=== PATIENT | female | born 1945 | race Caucasian/White ===

== ENCOUNTER 2024-03-18 09:38 | Outpatient (OUT) | payer MEDICARE, OTHER, SELFPAY ==
--- NOTE | 2024-03-18 | XR_ITS ---
The [address] [address] Patient Name: WALTER ROACH MRN: [id number] date: 1945 Sex: F Assigned Patient Location: [facility] Current Patient Location: Accession/Order Number: [id number] Exam Date: 03/18/2024 10:00 Report Date: 03/20/2024 05:14 At the request of: KAMILA QUESADA Procedure: XR lumbar spine 2-3V EXAMINATION: XR lumbar spine 2-3V HISTORY: Left lumbar radiculitis M54.16 COMPARISON: No relevant comparison available. FINDINGS: BONES: No fracture or spondylolisthesis. Multilevel moderate degenerative facet arthropathy. DISC SPACES: Marked narrowing on the left side of L1-L2 and right side of L3-L4. 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 OTHER: Negative. XR/XR lumbar spine 2-3V IMPRESSION: 1. 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 Electronically authenticated by: DANIEL DORANTES Date: 03/20/2024 05:14
== END 2024-03-18 09:39 | disposition home or self-care (01) ==
LOC: RAD 09:43
PROVIDERS: PCP Internal Medicine; Visit Provider Internal Medicine
DX: M54.16 Radiculopathy, lumbar region (principal); M51.36 Other intervertebral disc degeneration, lumbar region
CPT/HCPCS: 72100

== ENCOUNTER 2025-02-08 10:07 | Outpatient (OUT) | payer MEDICARE, OTHER, SELFPAY ==
--- OUTSIDE RECORDS SUMMARY | 2025-01-30 09:30 | XMS_ITS | Encounter Summary ---
Author Organization [facility] Address [address] [place] [address] Care Team Providers Care Stock Broker Supervisor Name Role Phone Jesús Tripathi MD Unavailable [phone] Jesús Tripathi MD Primary Care Provider [phone] Reason for Referral * Imaging (Routine) - Authorized Specialty Diagnoses / Procedures Referred By Contac t Referred To Contact Radiology Diagnoses Carotid bruit, unspecified laterality Procedures Vascular US carotid artery duplex bilateral Jesús Tripathi MD 112 [facility] 110 [place] [address] Phone: tel: fax: [facility] [address] [facility] [address] [place] [address] Phone: tel: fax: Referral ID Status Reason Start Date Expiration Date V isits Requested Visits Authorized [id number] Authorized 01/30/2025 07/29/2025 1 1 Reason for Visit * Reason Comments Medicare Annual Wellness Visit Subsequen t Encounter Details Date Type Department Care Team (Late st Contact Info) Description 01/30/2025 9:30 AM EDT [facility] [address] [facility] 110 [place] [address] Jesús Tripathi MD 112 [facility] 110 [place] [address] Routine general medical examination at health care facility (Primary Dx); ACP (advance care planning); Polyosteoarthritis, unspecified; Carotid bruit, unspecified laterality; Primary insomnia; Atrophic vaginitis; Generalized osteoarthritis; Osteoarthritis of spine with radiculopathy, lumbar region; Age-related osteoporosis without current pathological fracture ; Mixed hyperlipidemia Social History Tobacco Use Types Packs/Day Years Used Date Smoking Tobacco: Never Smokeless Tobacco: Never Tobacco Cessation:Counseling Given: Not Answered Alcohol Use Standard Drinks/Week Comments Yes 7 (1 standard drink = 0.6 oz pur e alcohol) B1300 Health Literacy Answer Date Recor ded How often do you need to hav e someone help you when you read instructions, pamphlets, or other written material from your doctor or pharmacy? Never 01/23/2025 Humiliation, Afraid, Rape, and Kick questionnair e Answer Date Recorded Within the last year, have y ou been afraid of your partner or ex-partner? No 01/23/2025 Within the last year, have y ou been humiliated or emotionally abused in other ways by your partner or ex-partner? No Within the last year, have y ou been kicked, hit, slapped, or otherwise physically hurt by your partner or ex-partner? No 01/23/2025 Within the last year, have y ou been raped or forced to have any kind of sexual activity by your partner or ex-partner? No 01/23/2025 Social Connection and Isolation Panel [NHANES] A nswer Date Recorded In a typical week, how many times do you talk on the phone with family, friends, or neighbors? Once a week 01/23/2025 How often do you get together with friends or re latives? Once a week 01/23/2025 How often do you attend uatsdin or druze serv ices? Never 01/23/2025 Do you belong to any clubs o r organizations such as uatsdin groups, unions, fraternal or athletic groups, or school groups? No 01/23/2025 How often do you attend meet ings of the clubs or organizations you belong to? Never 01/23/2025 Are you , , di vorced, , never , or living with a partner? 01/23/2025 AUDIT-C Answer Date Recorded Q1: How often do you have a drink containing alcohol? 4 or more times a week 01/23/2025 Q2: How many drinks containi ng alcohol do you have on a typical day when you are drinking? 1 or 2 Q3: How often do you have si x or more drinks on one occasion? Never 01/23/2025 Overall Financial Resource Strain (CARDIA) Answe r Date Recorded How hard is it for you to pa y for the very basics like food, housing, medical care, and heating? Not hard at all 01/23/2025 PHQ-2 Answer Date Recorded Patient Health Questionnaire-2 Score 0 01/23/2025 [facility] - Occupational Stress Questionnaire Answer Date Recorded Do you feel stress - tense, restless, nervous, or anxious, or unable to sleep at night because your mind is troubled all the time - these days? Only a little 01/23/2025 Exercise Vital Sign Answer Date Recorde d On average, how many days pe r week do you engage in moderate to strenuous exercise (like a brisk walk)? 3 days 01/23/2025 On average, how many minutes do you engage in exercise at this level? 20 min 01/23/2025 Hunger Vital Sign Answer Date Recorded Within the past 12 months, y ou worried that your food would run out before you got the money to buy more. Never true 01/24/20 25 Within the past 12 months, t he food you bought just didn't last and you didn't have money to get more. Never true 01/23/2025 PRAPARE - Transportation Answer Date Re corded In the past 12 months, has l ack of transportation kept you from medical appointments or from getting medications? No 01/04 In the past 12 months, has l ack of transportation kept you from meetings, work, or from getting things needed for daily living? No 01/23/2025 Housing Stability Vital Sign Answer Naldo e Recorded In the last 12 months, was t here a time when you were not able to pay the mortgage or rent on time? No 01/23/2025 In the past 12 months, how m any times have you moved where you were living? 0 01/23/2025 At any time in the past 12 m [facility], were you homeless or living in a alf (including now)? No 01/23/2025 Comments No Sex and Gender Information Value Date Recorded Sex Assigned at Female 05/20/2023 10:49 AM EST Legal Sex Female 6:38 PM EDT Gender Identity Female 05/20/2023 10:49 AM EST Sexual Orientation Not on file documented as of this encounter Last Filed Vital Signs Vital Sign Reading Time Taken Comments Blood Pressure 128/80 01/30/2025 9:26 AM EDT Pulse 89 01/30/2025 9:26 AM EDT Temperature - - Respiratory Rate - - Oxygen Saturation 96% 01/30/2025 9:26 AM EDT Inhaled Oxygen Concentration - - Weight - - Height 163.2 cm (5' 4.25 ) 01/30/2025 9:26 AM ED T Body Mass Index - - documented in this encounter Progress Notes * Jesús Tripathi MD - 01/30/2025 9:30 AM EDT Images from the original note were not included. Subjective : Chief Complaint: Alena Tapia is an 79 y.o. female here for an annual wellness visit. I have reviewed and reconciled the history and medication list with the patient today. Current Outpatient Medications Medication Sig Dispense Refill latanoprost (Xalatan) 0.005 % ophthalmic solution Administer 1 drop into both eyes at bedtime omeprazole (PriLOSEC) [address] capsule Take 1 capsule (40 mg) by mouth in the morning. Take before meals. Do not crush or chew.. 30 capsule 0 rosuvastatin (Crestor) 20 MG tablet Take 1 tablet (20 mg) by mouth in the morning. 90 tablet 3 zolpidem (Ambien) 10 MG tablet Take 1 tablet (10 mg) by mouth as needed at bedtime for sleep 30 tablet 3 No current facility-administered medications for this visit. Review of Systems Constitutional: Negative for chills, fatigue and fever. Respiratory: Negative for cough, shortness of breath and wheezing. Cardiovascular: Negative for chest pain, palpitations and leg swelling. Gastrointestinal: Negative for abdominal pain, constipation, diarrhea, nausea and vomiting. Skin: Negative for rash. List of current healthcare providers: Patient Care Team: Jesús Tripathi MD as PCP - General (Internal Medicine) Jesús Tripathi MD as PCP - [employer] Medicare Annual Visit Over the past 2 weeks, how often have you been bothered by any of the following problems? Little interest or pleasure in doing things: (Patient-Rptd) (P) Not at all Feeling down, depressed, or hopeless: (Patient-Rptd) (P) Not at all Patient Health Questionnaire-2 Score: (Patient-Rptd) (P) 0 Sal Fall Risk History of Falling, Immediate or Within 3 Months: (Patient-Rptd) (P) No Secondary Diagnosis: (Patient-Rptd) (P) No Ambulatory Aid: (Patient-Rptd) (P) Walks without aid/bedrest/nurse assist Intravenous Therapy/Heparin Lock: (Patient-Rptd) (P) No Gait/Transferring: (Patient-Rptd) (P) Normal/bedrest/immobile Mental Status: (Patient-Rptd) (P) Oriented to own ability Sal Fall Risk Score: (Patient-Rptd) (P) 0 Health Risk Assessment Form Do you need help eating, bathing, using the toilet, dressing, or getting around your home?: (Patient-Rptd) (P) No Can you prepare your own meals?: (Patient-Rptd) (P) Yes Can you do your own housework without help?: (Patient-Rptd) (P) Yes Can you shop for groceries or clothes without help?: (Patient-Rptd) (P) Yes Do you exercise for about 20 minutes 3 or more days a week?: (Patient-Rptd) (P) Yes How confident are you that you can control and manage most of your health problems?: (Patient-Rptd)(P) Very confident Can you mange your money, credit cards and accounts, pay bills and taxes?: (Patient-Rptd) (P) Yes Cognitive Screening Three Word Registration: Apple, Watch, Lizette Clock Drawing: Normal Clock - 2 Three Word Recall: All 3 words correct - 3 Total Score (0-5 Points): 5 Pain Assessment Pain Score: (Patient-Rptd) (P) 2 Advance Care Planning Do you have a living will?: (Patient-Rptd) (P) No Do you have a medical power of banking attorney?: (Patient-Rptd) (P) No Objective : BP 128/80 Pulse 89 Ht 5' 4.25 LMP (LMP Unknown) SpO2 96% BMI 25.55 kg/m?? No results found. Physical Exam Constitutional: Appearance: Normal appearance. HENT: Head: Normocephalic and atraumatic. Neck: Vascular: Carotid bruit present. Cardiovascular: Rate and Rhythm: Normal rate and regular rhythm. Heart sounds: Normal heart sounds. No murmur heard. Pulmonary: Effort: Pulmonary effort is normal. Breath sounds: Normal breath sounds. No wheezing, rhonchi or rales. Abdominal: General: Abdomen is flat. Bowel sounds are normal. There is no distension. Tenderness: There is no abdominal tenderness. Musculoskeletal: Right lower leg: No edema. Left lower leg: No edema. Neurological: Mental Status: She is alert. Psychiatric: Mood and Affect: Mood normal. Thought Content: Thought content normal. Assessment/Plan : The following health maintenance schedule was reviewed with the patient and provided in printed form in the after visit summary: Health Maintenance Topic Date Due Influenza Vaccine (1) 03/06/2025 Medicare Annual Wellness (AWV) 06/06/2025 Pneumococcal Vaccine: 65+ Years Completed Advance Care Planning Assessment/Plan Diagnoses and all orders for this visit: Routine general medical examination at health care facility ACP (advance care planning) Polyosteoarthritis, unspecified - traMADol (Ultram) 50 MG tablet; Take 1 tablet (50 mg) by mouth every 6 (six) hours if needed for severe pain - Medication choice and dosage is appropriate for patient's current medical conditions. Patient will continue to be required to be seen in our office at least every three months for monitoring. At each follow up visit I will reassess the patient's need for the medication. Patient is to have this medication prescribed only through this office. Failure to follow the rules and regulations will result in tapering and discontinuation of medications if applicable. Patient verbalized understanding. OARRS Report was reviewed for this patient. Carotid bruit, unspecified laterality - Vascular US carotid artery duplex bilateral; Future Primary insomnia - On Ambien, Doesn't like to take it. I suggested trying Benedryl OTC. Atrophic vaginitis - The patient is seeing a medical technologist chief for this condition, treatment is deferred to that specialist. Correspondence from that specialist and any available testing were reviewed during today's visit. Generalized osteoarthritis - This is a chronic medical condition that is stable since last assessment. No changes in treatmentare suggested at this time. Osteoarthritis of spine with radiculopathy, lumbar region - Pain controlled on Ambien. Age-related osteoporosis without current pathological fracture - BMD is scheduled. Mixed hyperlipidemia - Labs from last June were discussed. No orders of the defined types were placed in this encounter. Electronically signed by Jesús Tripathi MD on January 30, 2025 documented in this encounter Plan of Treatment Upcoming Encounters Date Type Department Care Team (Late st Contact Info) Description 12/18/2025 10:45 AM EDT Office Visit [facility] [address] [place] [address] Kiet Pacheco DO [address] [place] [address] Scheduled Orders Name Type Priority Associated Diagnoses Orde r Schedule Vascular US carotid artery duplex bilateral Imaging Routine Carotid bruit, unspecified laterality Expected: 01/30/2025, Expires: 01/30/2026 documented as of this encounter Visit Diagnoses Diagnosis Routine general medical examination at health care facility- Primary Routine general medical examination at a health care facility ACP (advance care planning) Other specified counseling Polyosteoarthritis, unspecified Carotid bruit, unspecified laterality Primary insomnia Persistent disorder of initiating or maintaining sleep Atrophic vaginitis Postmenopausal atrophic vaginitis Generalized osteoarthritis Generalized osteoarthrosis, involving multiple sites Osteoarthritis of spine with radiculopathy, lumbar region Age-related osteoporosis without current pathological fracture Mixed hyperlipidemia Mixed hyperlipidemia documented in this encounter Additional Health Concerns Assessment Noted Time PHQ-9 Depression Total Score: 0 06/06/20 24 9:00 AM EST documented as of this encounter Care Teams Stock Broker Supervisor Relationship Specialty Start Date End Date Jesús Tripathi MD [address] [facility] [address] [place] [address] PCP - [employer] 07/06/20 Jesús Tripathi MD [address] [facility] [address] [place] [address] PCP - General Internal Medicine 11/11/22 documented as of this encounter
--- OUTSIDE RECORDS SUMMARY | 2025-02-08 10:10 | XMS_ITS | Encounter Summary ---
Author Organization [facility] Address [address] [place] [address] Care Team Providers Care Dermatopathologist Name Role Phone Jesús Tripathi MD Unavailable [phone] Jesús Tripathi MD Primary Care Provider [phone] Encounter Details Date Type Department Care Team (Late st Contact Info) Description 01/30/2025 Bamboo flowsheet [facility] [address] [facility] [address] [place] [address] Jesús Tripathi MD [address] [facility] [address] [place], [place] [id number] Social History Tobacco Use Types Packs/Day Years Used Date Smoking Tobacco: Never Smokeless Tobacco: Never Alcohol Use Standard Drinks/Week Comments Yes 7 [...] week 01/23/2025 How often do you attend evangelical or druze serv ices? Never 01/23/2025 Do you belong to any clubs o r organizations such as evangelical groups, unions, fraternal or athletic groups, or [...] Recorded Patient Health Questionnaire-2 Score 0 01/23/2025 [facility] - Occupational Stress Questionnaire Answer Date Recorded [...] any time in the past 12 m [facility], were you homeless or living in a alf (including now)? No 01/23/2025 Comments No Sex and Gender Information Value Date Recorded Sex Assigned at Female 05/20/2023 10:49 AM EST Legal Sex Female 6:38 PM EDT Gender Identity Female 05/20/2023 10:49 AM EST Sexual Orientation Not on file documented as of this encounter Plan of Treatment Upcoming Encounters Date Type Department Care Team (Late st Contact Info) Description 12/18/2025 10:45 AM EDT Office Visit [facility] [address] [place] [address] Kiet Pacheco DO [address] [place] [address] documented as of this encounter Visit Diagnoses Not on filedocumented in this encounter Additional Health Concerns Assessment Noted Time PHQ-9 Depression Total Score: 0 06/06/20 24 9:00 AM EST documented as of this encounter Care Teams Dermatopathologist Relationship Specialty Start Date End Date Jesús Tripathi MD 112 [facility] [address] [place] [address] PCP - [employer] 07/06/20 Jesús Tripathi MD [address] [address] PCP - General Internal Medicine 11/11/22 documented as of this encounter
--- OUTSIDE RECORDS SUMMARY | 2025-02-08 10:10 | XMS_ITS | Encounter Summary ---
Author Organization [facility] Address [address] [place] [address] Care Team Providers Care Organ Pipe Finisher Name Role Phone Jesús Tripathi MD Unavailable [phone] Jesús Tripathi MD Primary Care Provider [phone] Reason for Visit * Reason Onset Date Comments Med Refill 05/11/2023 Encounter Details Date Type Department Care Team (Late st Contact Info) Description 05/11/2023 Refill [facility] [address] [facility] [address] [place] [address] Jesús Tripathi MD 112 [facility] [address] [place], [place] [id number] Insomnia, unspecified type (Primary Dx) Social History Tobacco Use Types Packs/Day Years Used Date Smoking Tobacco: Never Assessed Comments Unknown Sex and Gender Information Value Date Recorded Sex Assigned at Female 05/20/2023 10:49 AM EST Legal Sex Female 6:38 PM EDT Gender Identity Female 05/20/2023 10:49 AM EST Sexual Orientation Not on file documented as of this encounter Miscellaneous Notes * Telephone Encounter - Jesús Tripathi MD - 05/13/2023 12:57 PM EST I filled but she will need to be seen for further refills. * Telephone Encounter - BECKY CHAVEZ - 05/12/2023 1:14 PM EST Last OV 11/21/22 Last fill 09/22/22 documented in this encounter Plan of Treatment Upcoming Encounters Date Type Department Care Team (Late st Contact Info) Description 12/18/2025 10:45 AM EDT Office Visit [facility] [address] [place] [address] Kiet Pacheco DO [address] [place] [address] documented as of this encounter Visit Diagnoses Diagnosis Insomnia, unspecified type- Primary documented in this encounter Care Teams Organ Pipe Finisher Relationship Specialty Start Date End Date Jesús Tripathi MD 112 [facility] [address] [place] [address] PCP - [employer] 07/06/20 Jesús Tripathi MD 112 [facility] [address] [place] [address] PCP - General Internal Medicine 11/11/22 documented as of this encounter
--- OUTSIDE RECORDS SUMMARY | 2025-02-08 10:10 | XMS_ITS | Encounter Summary ---
Author Organization [facility] Address [address] [place] [address] Care Team Providers Care Telegraph Printer Mechanic Name Role Phone Jesús Tripathi MD Unavailable [phone] Jesús Tripathi MD Primary Care Provider [phone] Reason for Visit * Reason Onset Date Comments CALL RESULTS... 01/30/2025 Encounter Details Date Type Department Care Team (Late st Contact Info) Description 01/30/2025 Telephone [facility] [place] [facility] [address] [facility] [address] [place] [address] Jesús Tripathi MD 112 [facility] [address] [place], [place] [id number] CALL RESULTS... Social History Tobacco Use Types Packs/Day Years [...] week 01/23/2025 How often do you attend christian or jainism serv ices? Never 01/23/2025 Do you belong to any clubs o r organizations such as christian groups, unions, fraternal or athletic groups, or [...] Recorded Patient Health Questionnaire-2 Score 0 01/23/2025 [facility] [place] [facility] Occupat ional Health - Occupational Stress [...] any time in the past 12 m [facility], were you homeless or living in a custodial (including now)? No 01/23/2025 Comments No Sex and Gender Information Value Date Recorded Sex Assigned at Female 05/20/2023 10:49 AM EST Legal Sex Female 6:38 PM EDT Gender Identity Female 05/20/2023 10:49 AM EST Sexual Orientation Not on file documented as of this encounter Miscellaneous Notes * Telephone Encounter - Nicole Larson LPN - 01/30/2025 10:36 AM EDT Pt getting carotid us done at [facility] call her with results documented in this encounter Plan of Treatment Upcoming Encounters Date Type Department Care Team (Late st Contact Info) Description 12/18/2025 10:45 AM EDT Office Visit [facility] [address] [place] [address] Kiet Pacheco DO [address] [place] [address] documented as of this encounter Visit Diagnoses Not on filedocumented in this encounter Additional Health Concerns Assessment Noted Time PHQ-9 Depression Total Score: 0 06/06/20 24 9:00 AM EST documented as of this encounter Care Teams Telegraph Printer Mechanic Relationship Specialty Start Date End Date Jesús Tripathi MD 112 [facility] [address] [place] [address] PCP - [employer] 07/06/20 Jesús Tripathi MD 112 [facility] [address] [place] [address] PCP - General Internal Medicine 11/11/22 documented as of this encounter
--- OUTSIDE RECORDS SUMMARY | 2025-02-08 10:10 | XMS_ITS | Encounter Summary ---
Author Organization [facility] Address [address] [place] [address] Care Team Providers Care Checker Cashier Name Role Phone Jesús Tripathi MD Unavailable [phone] Jesús Tripathi MD Primary Care Provider [phone] Encounter Details Date Type Department Care Team (Latest Contact Info) Description 01/30/2025 Travel Social History Tobacco Use Types Packs/Day Years [...] week 01/23/2025 How often do you attend anglican or hindu serv ices? Never 01/23/2025 Do you belong to any clubs o r organizations such as anglican groups, unions, fraternal or athletic groups, or [...] Recorded Patient Health Questionnaire-2 Score 0 01/23/2025 [facility] Occupat ional Health - Occupational Stress [...] any time in the past 12 m [facility], were you homeless or living in a long term (including now)? No 01/23/2025 Comments No Sex [...] [facility] [address] [place] [address] Kiet Pacheco DO [address] [place] [address] documented as of this encounter Visit Diagnoses Not on filedocumented in this encounter Additional Health Concerns Assessment Noted Time PHQ-9 Depression Total Score: 0 06/06/20 24 9:00 AM EST documented as of this encounter Care Teams Checker Cashier Relationship Specialty Start Date End Date Jesús Tripathi MD [address] [place] [address] PCP - [employer] 07/06/20 Jesús Tripathi MD [address] [place] [address] PCP - General Internal Medicine 11/11/22 documented as of this encounter
--- OUTSIDE RECORDS SUMMARY | 2025-02-08 10:11 | XMS_ITS | Clinical Summary ---
Author Organization [facility] Address [address] [place] [address] Care Team Providers Care Air Conditioning Installer Supervisor Name Role Phone Jesús Tripathi MD Unavailable [phone] Jesús Tripathi MD Primary Care Provider Allergies No known active allergies Medications latanoprost (Xalatan) 0.005 % ophthalmic solution Administer 1 drop into both eyes at bedtime 11/24/19 24 Active omeprazole (PriLOSEC) [address] capsuleIndications :Dyspepsia Take 1 capsule (40 mg) by mouth in the morning. Take before meals. Do not crush or chew.. 30 capsule 03/25/20 24 Active rosuvastatin (Crestor) 20 MG tabletIndications: Hyperlipidemia, unspecified hyperlipidemia type Take 1 tablet (20 mg) by mouth in the morning. 90 tablet 3 06/08/20 24 025 Active zolpidem (Ambien) 10 MG tabletIndications: Insomnia, unspecified type Take 1 tablet (10 mg) by mouth as needed at bedtime for sleep 30 tablet 3 12/06/19 25 025 Active traMADol (Ultram) 50 MG tabletIndications: Polyosteoarthritis , unspecified Take 1 tablet (50 mg) by mouth every 6 (six) hours if needed for severe pain 120 tablet 2 01/31/20 25 025 Active traMADol (Ultram) 50 MG tabletIndications: Polyosteoarthritis , unspecified Take 1 tablet (50 mg) by mouth every 6 (six) hours if needed for severe pain 120 tablet 06/05/25 25 025 Discontin ued(Reord er) Active Problems Problem Noted Date Diagnosed Date Atrophic vaginitis 04/30/2023 Basal cell carcinoma (BCC) of left shoulder 04/06 Generalized osteoarthritis 04/30/2023 Hyperlipidemia 04/30/2023 Insomnia 04/30/2023 Osteoarthritis of lumbar spine 04/30/2023 Osteoporosis 04/30/2023 Other allergic rhinitis 04/30/2023 Sacroiliitis 04/30/2023 Resolved Problems Problem Noted Date Diagnosed Date Resolved Date Hypertension 04/30/2023 01/30/2025 Swelling of head 04/30/2023 01/30/2025 Encounters Date Type Department Care Team Description 02/07/2025 External Result Encounter [facility] External Department Unsolicited Kiet Pacheco, 01/31/2025 Abstract [facility] [place] [facility] [address] [facility] [address] [place] [address] Jesús Tripathi MD 01/30/2025 9:30 AM EDT Office Visit [facility] [place] [facility] [address] [facility] [address] [place] [address] Jesús Tripathi MD Routine general medical examination at health care facility (Primary Dx); ACP (advance care planning); Polyosteoarthritis, unspecified; Carotid bruit, unspecified laterality; Primary insomnia; Atrophic vaginitis; Generalized osteoarthritis; Osteoarthritis of spine with radiculopathy, lumbar region; Age-related osteoporosis without current pathological fracture ; Mixed hyperlipidemia 01/30/2025 Telephone [facility] [place] [facility] [place] [address] Jesús Tripathi MD CALL RESULTS... 01/30/2025 Bamboo flowsheet [facility] [place] [facility] [address] [facility] [address] [place] [address] Jesús Tripathi MD 01/30/2025 Travel 01/23/2025 Travel 12/28/2024 9:00 AM EDT Treatment [facility] [facility] [address] [facility] [address] [place] [phone] Kelbley, Margy, TOOL CLERK Sciatica without back pain, unspecified laterality (Primary Dx) 12/28/2024 Bamboo flowsheet [facility] [facility] [address] [place] [address] [place] [address] Kelbley, Margy, TOOL CLERK 12/28/2024 Travel 12/26/2024 9:30 AM EDT Treatment [facility] [facility] [address] [place] [address] [place] [address] Kelbley, Margy, TOOL CLERK Sciatica without back pain, unspecified laterality (Primary Dx) 12/26/2024 Bamboo flowsheet [facility] [facility] [address] [place] [address] [place] [address] Kelbley, Margy, TOOL CLERK 12/26/2024 Travel 12/22/2024 Travel 12/21/2024 10:30 AM EDT Treatment [facility] [facility] [address] [place] [address] [place] [address] Kelbley, Margy, TOOL CLERK Sciatica without back pain, unspecified laterality (Primary Dx) 12/21/2024 Travel 12/20/2024 Travel 12/19/2024 10:30 AM EDT Treatment [facility] [facility] [address] [place] [address] [place] [address] Kelbley, Margy, TOOL CLERK Sciatica without back pain, unspecified laterality (Primary Dx) 12/19/2024 Bamboo flowsheet [facility] [facility] [address] [place] [address] [place] [address] Kelbley, Margy, TOOL CLERK 12/19/2024 Travel 12/18/2024 Travel 12/14/2024 10:00 AM EDT Treatment [facility] [facility] [address] [place] [address] [place] [address] Kelbley, Margy, TOOL CLERK Sciatica without back pain, unspecified laterality (Primary Dx) 12/14/2024 Travel 12/14/2024 Refill [facility] [facility] [address] [place] [address] [place] [address] Jennifer Deluna MA Polyosteoarthritis, unspecified 12/12/2024 10:30 AM EDT Treatment [facility] [facility] [address] [facility] [address] [place] [address] Kelbley, Margy, TOOL CLERK Sciatica without back pain, unspecified laterality (Primary Dx) 12/12/2024 Bamboo flowsheet [facility] [address] [facility] [address] [place] [address] Kelbley, Margy, TOOL CLERK 12/12/2024 Travel 12/09/2024 10:45 AM EDT Office Visit [facility] [address] [place] [phone] Marcial Mclain, DOMINIQUE Right knee pain, unspecified chronicity (Primary Dx); Left knee pain, unspecified chronicity; Arthritis of left knee; Arthritis of right knee 12/09/[address] [facility] [address] [place] [address] Marcial Mclain PA 12/09/2024 Travel 12/07/2024 9:30 AM EDT Treatment [facility] [facility] [address] [facility] [address] [place] [address] Zechariah Silveira, PT Sciatica without back pain, unspecified laterality (Primary Dx) 12/07/2024 Travel 12/06/2024 Travel 12/05/2024 2:30 PM EDT Office Visit [facility] [address] [place] [address] Kiet Pacheco, Encounter for gynecological examination with abnormal finding (Primary Dx); Encounter for screening mammogram for malignant neoplasm of breast; Vaginal atrophy; Osteopenia of both hips; Osteoporosis screening; Asymptomatic menopause; Insomnia, unspecified type 12/05/2024 10:30 AM EDT Treatment [facility] [facility] [address] [facility] [address] [place] [address] Kelbley, Margy, TOOL CLERK Sciatica without back pain, unspecified laterality (Primary Dx) 12/05/2024 Abstract [facility] [address] [place] [address] [place] [address] Kiet Pacheco, 12/05/2024 Travel 12/04/2024 Travel 12/02/2024 9:30 AM EDT Treatment [facility] [address] [facility] [address] [place] [address] Kelbley, Margy, TOOL CLERK Sciatica without back pain, unspecified laterality (Primary Dx) 12/02/2024 Bamboo flowsheet [facility] [facility] [address] [facility] [address] [place] [address] Kelbley, Margy, TOOL CLERK 12/02/2024 Travel 12/01/2024 Travel 11/30/2024 1:00 PM EDT Treatment [facility] [facility] [address] [facility] [address] [place] [address] Zechariah Silveira T, PT Sciatica without back pain, unspecified laterality (Primary Dx) 11/30/2024 Bamboo flowsheet [facility] [facility] [address] [facility] [address] [place] [address] Zechariah Silveira T, PT 11/30/2024 Travel 11/29/2024 Travel 11/28/2024 Travel 11/23/2024 3:00 PM EDT Treatment [facility] [facility] [address] [facility] [address] [place] [address] Kelbley, Margy, TOOL CLERK Sciatica without back pain, unspecified laterality (Primary Dx) 11/23/2024 Bamboo flowsheet [facility] [facility] [address] [facility] [address] [place] [address] Kelbley, Margy, TOOL CLERK 11/23/2024 Travel 11/22/2024 Travel 11/21/2024 2:00 PM EDT Evaluation [facility] [facility] [address] [facility] [address] [place] [address] Zechariah Silveira, PT Sciatica without back pain, unspecified laterality (Primary Dx) 11/21/2024 Bamboo flowsheet [facility] [facility] [address] [facility] [address] [place] [address] Zechariah Silveira, PT 11/21/2024 Travel 11/18/2024 Travel 11/14/2024 Telephone [facility] [facility] [address] [facility] [address] [place] [address] Zechariah Silveira, PT PT Initial Eval; fu; Call Back 11/11/2024 [facility]phone [facility] [place] [facility] [address] [facility] [address] [place] [phone] Jesús Tripathi MD from Last 3 Months Immunizations Immunization Administration Dates Next Due ABRYSVO - Respiratory syncyt ial virus (RSV), vaccine, bivalent, protein subunit RSV prefusion F, diluent reconstituted, 0.5 mL, PF 07/13/2024 Influenza, High Dose Seasona l, Preservative Free 05/18/2024,05/06/2022,05/06/2021 Influenza, seasonal, injectable 04/15/2023 Influenza, seasonal, injecta ble, preservative free 03/06/2019 Moderna Bivalent Booster Vaccination 04/25/2022 Pneumococcal Conjugate PCV 13 05/22/2021 Pneumococcal Polysaccharide PPSV23 09/12/2019 SARS-COV-2 (COVID-19) vaccin e, mRNA, spike protein, LNP, PF, alvaro-sucrose, 30 mcg/0.3 mL 04/19/2023 Zoster, Recombinant 01/10/2020 Zoster, live 04/11/2015,03/17/2014 Family History Relation Name Status Comments Father Mother Social History Tobacco Use Types Packs/Day Years [...] week 01/23/2025 How often do you attend pentecostal or zoroastrian serv ices? Never 01/23/2025 Do you belong to any clubs o r organizations such as pentecostal groups, unions, fraternal or athletic groups, or [...] Recorded Patient Health Questionnaire-2 Score 0 01/23/2025 [facility] [place] of Occupat ional Health - Occupational Stress [...] any time in the past 12 m [facility], were you homeless or living in a half-way (including now)? No 01/23/2025 Comments No Sex and Gender Information Value Date Recorded Sex Assigned at Female 05/20/2023 10:49 AM EST Legal Sex Female 6:38 PM EDT Gender Identity Female 05/20/2023 10:49 AM EST Sexual Orientation Not on file Last Filed Vital Signs Vital Sign Reading Time Taken Comments Blood Pressure 128/80 01/30/2025 9:26 AM EDT Pulse 89 01/30/2025 9:26 AM EDT Temperature 36.8 C (98.3 F) 03/17/2024 11:05 AM EDT Respiratory Rate 16 11/01/2024 1:33 PM EDT Oxygen Saturation 96% 01/30/2025 9:26 AM EDT Inhaled Oxygen Concentration - - Weight 68 kg (150 lb) 12/05/2024 2:46 PM EDT Height 163.2 cm (5' 4.25 ) 01/30/2025 9:26 AM ED T Body Mass Index 25.55 11/01/2024 1:33 PM EDT Plan of Treatment Upcoming Encounters Date Type Department Care Team (Late st Contact Info) Description 12/18/2025 10:45 AM EDT Office Visit [facility] [address] [place] [address] Kiet Pacheco DO [address] [place] [address] Health Maintenance Due Date Last Done Comments Influenza Vaccine (#1) 2025 , 04/15/2023, 05/06/2022, Additional history exists Medicare Annual Wellness (AWV) 01/30/2026 0 01/30/2025, 06/06/2024, 05/27/2023 Pneumococcal Vaccine: 65+ Years Completed , 09/12/2019 Procedures Procedure Name Priority Date/Time Associated Diagnosis Comments BI MAMMOGRAM SCREENING TOMOSYNTHESIS BILATERAL 02/07/2025 4:13 PM EDT OK ARTHROCENTESIS ASPIR&/INJ MAJOR JT/BURSA W/O US Routine 12/09/2024 11:02 AM EDT Arthritis of right knee OK ARTHROCENTESIS ASPIR&/INJ MAJOR JT/BURSA W/O US Routine 12/09/2024 11:00 AM EDT Arthritis of left knee from Last 3 Months Results * Bilateral screening mammogram with tomosynthesis (02/07/2025 4:13 PM EDT) Anatomical Region Laterality Modality Breast Bilateral Mammography 02/07/2025 4:13 PM EDT Impressions 02/07/2025 4:22 PM EDT NO MAMMOGRAPHIC EVIDENCE OF MALIGNANCY. ROUTINE FOLLOW-UP IS RECOMMENDED IN ONE YEAR. RESULT CODE: 2 Benign Findings(s) DENSITY CODE: 2 (approximately 25-50% glandular) There are scattered areas of fibroglandular density. FOLLOW UP: 1YR The false-negative rate of mammography is approximately 10-percent. Management of a palpable abnormality must be based on clinical grounds. Patient was entered into a reminder system with a target due date for the next mammogram. Impression dictated by: Deshawn Quinn M.D. 02/07/2025 4:20 PM Dictation Location: [facility] Dictated By: Deshawn Quinn II, MD 02/07/25 1613 Signed By: <Electronically signed by Deshawn Quinn II, MD in OV> 02/07/25 1620 Narrative 02/07/2025 4:22 PM EDT [facility] [address] [place] [address] Mammography Report Signed Patient: Alena Tapia MR#: [id number] 31 : 1945 Acct:[id number] Age/Sex: 79 / F Adm Date: 02/07/25 Loc: [place] Room: Type: [facility] Attending Dr: Kiet Pacheco DO Ordering Provider: Kiet Pacheco DO Date of Service: 02/07/25 Procedure(s): MM screening mammo BI w/CAD Accession Number(s): ([id number]) MM/MM screening mammo BI w/CAD: SCREENING Copies to: MD Kiet Casanova II, DO CLINICAL DATA: Screening for malignancy. BILATERAL SCREENING MAMMOGRAMS - FULL FIELD DIGITAL WITH TOMOSYNTHESIS AND CAD Tomosynthesis craniocaudal and mediolateral oblique views of both breasts were obtained using low- dose digital technique. Comparison is made to prior studies from 09/01/2023, 06/24/2022, 04/08/2021, and 12/07/2019. This examination was reviewed with the aid of CAD. There are scattered fibroglandular densities. Benign-appearing lymph nodes are noted along the chest wall. Benign-appearing calcifications are present. Similar focal asymmetries are present bilaterally. There are no dominant masses, typically malignant calcifications or architectural distortion. There has been no significant interval change. MM/MM screening mammo BI w/CAD Procedure Note Deshawn Quinn MD - 02/07/2025 [id number] [place] [address] Mammography Report Signed Patient: Alena Tapia PMR#: [id number] [birth year] : 5Acct:[id number] Age/Sex: 79 / FAdm Date: 02/07/25 Loc: [place] Room:Type: [facility] Attending Dr: Kiet Pacheco DO Ordering Provider: Kiet Pacheco DO Date of Service: 02/07/25 Procedure(s): MM screening mammo BI w/CAD Accession Number(s): ([id number]) MM/MM screening mammo BI w/CAD:SCREENING Copies to: MD Kiet Casanova II, DO CLINICAL DATA: Screening for malignancy. BILATERAL SCREENING MAMMOGRAMS - FULL FIELD DIGITAL WITH TOMOSYNTHESIS ANDCAD Tomosynthesis craniocaudal and mediolateral oblique views of both breastswere obtained using low- dose digital technique. Comparison is made to prior studies from09/01/2023, 06/24/2022, 04/08/2021, and 12/07/2019. This examination was reviewed with the aid of CAD. There are scattered fibroglandular densities. Benign-appearing lymphnodes are noted along the chest wall. Benign-appearing calcifications are present. Similar focalasymmetries are present bilaterally. There are no dominant masses, typically malignantcalcifications or architectural distortion. There has been no significant interval change. MM/MM screening mammo BI w/CAD IMPRESSION: NO MAMMOGRAPHIC EVIDENCE OF MALIGNANCY. ROUTINE FOLLOW-UP IS RECOMMENDED IN ONE YEAR. RESULT CODE: 2 Benign Findings(s) DENSITY CODE: 2 (approximately 25-50% glandular) There are scattered areasof fibroglandular density. FOLLOW UP: 1YR The false-negative rate of mammography is approximately 10-percent. Management of a palpable abnormality must be based on clinical grounds. Patient was entered into a reminder system with a target due date for thenext mammogram. Impression dictated by: Deshawn Quinn M.D. 02/07/2025 4:20 PM Dictation Location: [facility] Dictated By: Deshawn Quinn II, MD 02/07/25 1613 Signed By: <Electronically signed by Deshawn Quinn II, MD inOV> 02/07/25 1620 us Kiet Pacheco DO IMG BI PROCEDURES Final Resul t * OK ARTHROCENTESIS ASPIR&/INJ MAJOR JT/BURSA W/O US (12/09/2024 11:02 AM EDT) Marcial Foote PA - 12/09/2024 11:02 AM EDT DOMINIQUE Harris 12/09/2024 11:25 AM L Inj/Asp: R knee on 12/09/2024 11:02 AM Indications: pain Details: 22 G needle, anterolateral approach Medications: 40 mg methylPREDNISolone acetate 40 MG/ML Outcome: tolerated well, no immediate complications E UTILIZING ASEPTIC TECHNIQUE PT GIVEN INJECTION IN RIGHT KNEE, NEUROVASC INTACT S/P INJ, TOLERATED WELL Procedure, treatment alternatives, risks and benefits explained, specific risks discussed. Consent was given by the patient. Patient was prepped and draped in the usual sterile fashion. us Marcial FOX IN CLINIC/BEDSIDE ORDERABLES Final Result * OK ARTHROCENTESIS ASPIR&/INJ MAJOR JT/BURSA W/O US (12/09/2024 11:00 AM EDT) Marcial Foote PA - 12/09/2024 11:00 AM EDT DOMINIQUE Harris 12/09/2024 11:25 AM L Inj/Asp: L knee on 12/09/2024 11:00 AM Indications: pain Details: 22 G needle, anterolateral approach Medications: 40 mg methylPREDNISolone acetate 40 MG/ML Outcome: tolerated well, no immediate complications UTILIZING ASEPTIC TECHNIQUE PT GIVEN INJECTION IN LEFT KNEE, NEUROVASC INTACT S/P INJ, TOLERATED WELL Procedure, treatment alternatives, risks and benefits explained, specific risks discussed. Consent was given by the patient. Patient was prepped and draped in the usual sterile fashion. us Marcial FOX IN CLINIC/BEDSIDE ORDERABLES Final Result from Last 3 Months Insurance [employer] MED[employer]ARE [employer]VANTAGE [facility] Care Teams Air Conditioning Installer Supervisor Relationship Specialty Start Date End Date Jesús Tripathi MD [address] [facility] [address] [place] [address] PCP - [employer] 07/06/20 Jesús Tripathi MD [address] [facility] [address] [place] [address] PCP - General Internal Medicine 11/11/22
--- OUTSIDE RECORDS SUMMARY | 2025-02-08 10:11 | XMS_ITS | Encounter Summary ---
Author Organization [facility] Address [address] [place] [address] Care Team Providers Care Deputy District Customs Director Name Role Phone Jesús Tripathi MD Unavailable [phone] Jesús Tripathi MD Primary Care Provider [phone] Encounter Details Date Type Department Care Team (Late st Contact Info) Description 09/01/2023 External Result Encounter [facility] External Department Unsolicited Kiet Pacheco, DO [address] [facility] [address] [place] [address] Social History Tobacco Use Types Packs/Day Years Used Date Smoking Tobacco: Never Smokeless Tobacco: Never Alcohol Use Standard Drinks/Week Comments Not Currently 0 (1 standard drink = 0.6 oz pur e alcohol) PHQ-2 Answer Date Recorded Patient Health Questionnaire-2 Score 0 05/27/2023 Comments Unknown Sex and Gender Information Value [...] EDT Office Visit [facility] [address] [facility] [address] [facility] [address] [place] [address] Kiet Pacheco DO [address] [facility] [address] [place] [address] documented as of this encounter Procedures Procedure Name Priority Date/Time Associated Diagnosis Comments BI MAMMOGRAM SCREENING BILATERAL 09/01/2023 3:12 PM EST documented in this encounter Results * Bilateral screening mammogram (09/01/2023 3:12 PM EST) Anatomical Region Laterality Modality Breast Bilateral Mammography 09/01/2023 3:12 PM EST Impressions 09/01/2023 3:18 PM EST NO MAMMOGRAPHIC EVIDENCE OF MALIGNANCY. ROUTINE FOLLOW-UP IS RECOMMENDED IN ONE YEAR. RESULT CODE: 2 Benign Findings(s) DENSITY CODE: 2 (approximately 25-50% glandular) FOLLOW UP: 1YR The false-negative rate of mammography is approximately 10-percent. Management of a palpable abnormality must be based on clinical grounds. Patient was entered into a reminder system with a target due date for the next mammogram. Impression dictated by: Deshawn Quinn M.D.09/01/2023 3:15 PM Dictation Location: [facility] Transcribed By: [facility] 09/01/23 1515 Dictated By: Deshawn Quinn II, MD 09/01/23 151 Signed By: <Electronically signed by Deshawn Quinn II, MD in OV> 09/01/23 1515 Narrative 09/01/2023 3:18 PM EST [facility] Main [place] [address] [place] [address] Mammography Report Signed Patient: Alena Tapia MR#: [id number] [birth year] : 1945 Acct:[id number] Age/Sex: 78 / F ADM Date: 09/01/23 Loc: [place] Room: Type: [facility] Attending Dr: Kiet Pacheco DO Copies to: MD Kiet Casanova II, DO Ordering Provider: Kiet Pacheco DO Date of Service: 09/01/23 MM/MM screening mammo BI w/CAD: screening;Screening mammogram, encounter for CLINICAL DATA: Screening for malignancy. BILATERAL SCREENING MAMMOGRAMS - FULL FIELD DIGITAL WITH TOMOSYNTHESIS AND CAD Tomosynthesis craniocaudal and mediolateral oblique views of both breasts were obtained using low- dose digital technique. Comparison is made to prior studies from 06/24/2022, 04/08/2021, 12/07/2019, and 09/07/2018. This examination was reviewed with the aid of CAD. There are scattered fibroglandular densities. Benign-appearing lymph nodes are noted along the chest wall. Benign-appearing calcifications are present. There are no dominant masses, typically malignant calcifications or architectural distortion. There has been no significant interval change. MM/MM screening mammo BI w/CAD Procedure Note Radiology, Radiologist, - 09/02/2023 [facility] Main [place] [address] [place] [address] Mammography Report Signed Patient: Alena Tapia PMR#: [id number] [birth year] : 5Acct:[id number] Age/Sex: 78 / FADM Date: 09/01/23 Loc: [place] Room:Type: [facility] Attending Dr: Kiet Pacheco DO Copies to: MD Kiet Casanova II, DO Ordering Provider: Kiet Pacheco DO Date of Service: 09/01/23 MM/MM screening mammo BI w/CAD:screening;Screening mammogram, encounter for CLINICAL DATA: Screening for malignancy. BILATERAL SCREENING MAMMOGRAMS - FULL FIELD DIGITAL WITH TOMOSYNTHESIS ANDCAD Tomosynthesis craniocaudal and mediolateral oblique views of both breastswere obtained using low- dose digital technique. Comparison is made to prior studies from06/24/2022, 04/08/2021, 12/07/2019, and 09/07/2018. This examination was reviewed with the aid of CAD. There are scattered fibroglandular densities. Benign-appearing lymphnodes are noted along the chest wall. Benign-appearing calcifications are present. There are nodominant masses, typically malignant calcifications or architectural distortion. There has been nosignificant interval change. MM/MM screening mammo BI w/CAD IMPRESSION: NO MAMMOGRAPHIC EVIDENCE OF MALIGNANCY. ROUTINE FOLLOW-UP IS RECOMMENDED IN ONE YEAR. RESULT CODE: 2 Benign Findings(s) DENSITY CODE: 2 (approximately 25-50% glandular) FOLLOW UP: 1YR The false-negative rate of mammography is approximately 10-percent. Management of a palpable abnormality must be based on clinical grounds. Patient was entered into a reminder system with a target due date for thenext mammogram. Impression dictated by: Deshawn Quinn M.D.09/01/2023 3:15 PM Dictation Location: [facility] Transcribed By: [facility] 09/01/23 1515 Dictated By: Deshawn Quinn II, MD 09/01/23 151 Signed By: <Electronically signed by Deshawn Quinn II, MD inOV> 09/01/23 1515 us Kiet Pacheco DO IMG BI PROCEDURES Final Resul t documented in this encounter Visit Diagnoses Not on filedocumented in this encounter Care Teams Deputy District Customs Director Relationship Specialty Start Date End Date Jesús Tripathi MD [address] [facility] [address] [place] [address] PCP - [employer] 07/06/20 Jesús Tripathi MD [address] [facility] [address] [place] [address] PCP - General Internal Medicine 11/11/22 documented as of this encounter
--- OUTSIDE RECORDS SUMMARY | 2025-02-08 10:11 | XMS_ITS | Encounter Summary ---
Author Organization [facility] Address [address] [place] [address] Care Team Providers Care Pet Trainer Name Role Phone Jesús Tripathi MD Unavailable [phone] Jesús Tripathi MD Primary Care Provider [phone] Encounter Details Date Type Department Care Team (Late st Contact Info) Description 02/07/2025 External Result Encounter [facility] External Department Unsolicited Kiet Pacheco, DO [address] [facility] [address] [place] [address] Social History Tobacco Use Types Packs/Day Years [...] How often do you attend christian or tenriism serv ices? Never 01/23/2025 Do you belong [...] Recorded Patient Health Questionnaire-2 Score 0 01/23/2025 [facility] - [...] any time in the past 12 m [facility], were you homeless or living in a penitentiary (including now)? No 01/23/2025 Comments No Sex [...] [facility] [address] [place] [address] Kiet Pacheco DO [address] [place] [address] documented as of this encounter Procedures Procedure Name Priority Date/Time Associated Diagnosis Comments BI MAMMOGRAM SCREENING TOMOSYNTHESIS BILATERAL 02/07/2025 4:13 PM EDT documented in this encounter Results * Bilateral screening mammogram with tomosynthesis [...] Quinn M.D. 02/07/2025 4:20 PM Dictation Location: [facility] Dictated By: Deshawn Quinn II, MD 02/07/25 1613 Signed By: <Electronically signed by Deshawn Quinn II, MD in OV> 02/07/25 1620 Narrative 02/07/2025 4:22 PM EDT [facility] [address] [place] [address] Mammography Report Signed Patient: Alena Tapia MR#: [id number] 31 : 1945 Acct:[id number] Age/Sex: 79 / F Adm Date: 02/07/25 Loc: [place] Room: Type: [facility] Attending Dr: Kiet Pacheco DO Ordering Provider: Kiet Pacheco DO Date of Service: 02/07/25 Procedure(s): MM screening mammo BI w/CAD Accession Number(s): ([id number]) MM/MM screening mammo BI w/CAD: SCREENING Copies [...] Procedure Note Deshawn Quinn MD - 02/07/2025 [place] [address] Mammography Report Signed Patient: Alena Tapia PMR#: [id number] [birth year] : 5Acct:[id number] Age/Sex: 79 / FAdm Date: 02/07/25 Loc: [place] Room:Type: [facility] Attending Dr: Kiet Pacheco DO Ordering Provider: Kiet Pacheco DO Date of Service: 02/07/25 Procedure(s): MM screening mammo BI w/CAD Accession Number(s): ([id number]) MM/MM screening mammo BI w/CAD:SCREENING Copies to: [...] Quinn M.D. 02/07/2025 4:20 PM Dictation Location: [facility] Dictated By: Deshawn Quinn II, MD 02/07/25 1613 Signed By: <Electronically signed by Deshawn Quinn II, MD inOV> 02/07/25 1620 us Kiet Reese Visci DO IMG BI PROCEDURES Final Resul t documented in this encounter Visit Diagnoses Not on filedocumented in this encounter Additional Health Concerns Assessment Noted Time PHQ-9 Depression Total Score: 0 06/06/20 24 9:00 AM EST documented as of this encounter Care Teams Pet Trainer Relationship Specialty Start Date End Date Jesús Tripathi MD 112 [facility] 110 [place] [address] PCP - [employer] 07/06/20 Jesús Tripathi MD 112 [facility] 110 [place] [address] PCP - General Internal Medicine 11/11/22 documented as of this encounter
--- OUTSIDE RECORDS SUMMARY | 2025-02-08 10:11 | XMS_ITS | Encounter Summary ---
Author Organization [facility] Address [address] [place] [address] Care Team Providers Care Promotional Representative Name Role Phone Jesús Tripathi MD Unavailable [phone] Jesús Tripathi MD Primary Care Provider [phone] Encounter Details Date Type Department Care Team (Late st Contact Info) Description 03/20/2024 Clinisync Result Encounter [facility] External Department Unsolicited Jesús Tripathi MD [address] [address] Social History Tobacco Use Types Packs/Day Years Used Date Smoking Tobacco: Never Smokeless Tobacco: Never Alcohol Use Standard Drinks/Week Comments Yes 0 (1 standard drink = 0.6 oz pur e alcohol) AUDIT-C Answer Date Recorded Q1: How often do you have a drink containing alcohol? 4 or more times a week 11/26/2023 Q2: How many drinks containi ng alcohol do you have on a typical day when you are drinking? 1 or 2 Q3: How often do you have si x or more drinks on one occasion? Never 11/26/2023 PHQ-2 Answer Date Recorded Patient Health Questionnaire-2 Score 0 11/26/2023 Comments No Sex and Gender Information Value Date Recorded Sex Assigned at Female 05/20/2023 10:49 AM EST Legal Sex Female 6:38 PM EDT Gender Identity Female 05/20/2023 10:49 AM EST Sexual Orientation Not on file documented as of this encounter Plan of Treatment Upcoming Encounters Date Type Department Care Team (Late st Contact Info) Description 12/18/2025 10:45 AM EDT Office [facility] [address] [place] [phone], [address] [place] [address] documented as of this encounter Procedures Procedure Name Priority Date/Time Associated Diagnosis Comments XR LUMBAR SPINE 2 OR 3V 03/20/2024 5:14 AM EDT documented in this encounter Results * XR LUMBAR SPINE 2 OR 3V (03/20/2024 5:14 AM EDT) Anatomical Region Laterality Modality Radiographic Shanel ging 03/20/2024 5:14 AM EDT Narrative 03/20/2024 5:19 AM EDT [address] [address] XRay Report Signed Patient: ALENA ROACH MR#: [id number] : 1945 Acct:[id number] Age/Sex: 78 / F ADM Date: 03/18/24 Loc: RAD Attending Dr: JESÚS TRIPATHI Ordering Physician: JESÚS TRIPATHI Date of Service: 03/18/24 Procedure(s): XR lumbar spine 2-3V Accession Number(s): [id number] cc: JESÚS TRIPATHI [address] [address] Patient Name: ALENA ROACH MRN: [id number] date: 1945 Sex: F Assigned Patient Location: [facility] Current Patient Location: Accession/Order Number: [id number] Exam Date: 03/18/2024 10:00 Report Date: 03/20/2024 05:14 At the request of: JESÚS TRIPATHI Procedure: XR lumbar spine 2-3V EXAMINATION: XR lumbar spine 2-3V HISTORY: Left lumbar radiculitis M54.16 COMPARISON: No relevant comparison available. FINDINGS: BONES: No fracture or spondylolisthesis. Multilevel moderate degenerative facet arthropathy. DISC SPACES: Marked narrowing on the left side of L1-L2 and right side of L3-L4. 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 OTHER: Negative. XR/XR lumbar spine 2-3V IMPRESSION: 1. 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 Electronically authenticated by: DANIEL JUSTICE Date: 03/20/2024 05:14 Dictated By: Daniel Justice M.D. Signed By: 03/20/24518 DD/ 3 TD/TT: Logistics Tech: Procedure Note Radiology, Radiologist, MD - 03/20/2024 [place] [address] XRay Report Signed Patient: ALENA ROACH PMR#: [id number] : 5Acct:[id number] Age/Sex: 78 / FADM Date: 03/18/24 Loc: RAD Attending Dr: JESÚS TRIPATHI Ordering Physician: JESÚS TRIPATHI Date of Service: 03/18/24 Procedure(s): XR lumbar spine 2-3V Accession Number(s): [id number] cc: JESÚS TRIPATHI [place] [id number] Patient Name: ALENA ROACH MRN: [id number] date: 1945 Sex: F Assigned Patient Location: [facility] Current Patient Location: Accession/Order Number: [id number] Exam Date: 03/18/2024 10:00 Report Date: 03/20/2024 05:14 At the request of: JESÚS TRIPATHI Procedure: XR lumbar spine 2-3V EXAMINATION: XR lumbar spine 2-3V HISTORY: Left lumbar radiculitis M54.16 COMPARISON: No relevant comparison available. FINDINGS: BONES: No fracture or spondylolisthesis. Multilevel moderate degenerative facet arthropathy. DISC SPACES: Marked narrowing on the left side of L1-L2 and right side of L3-L4. PARASPINOUS: Atherosclerotic disease of aorta without appreciableaneurysm. OTHER: Negative. XR/XR lumbar spine 2-3V IMPRESSION: 1. 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 Electronically authenticated by: DANIEL JUSTICE Date: 03/20/2024 05:14 Dictated By: Daniel Justice M.D. Signed By:03/20/24 0519 DD/ TD/TT: Logistics Tech: Jesús Tripathi MD IMG XR PROCEDURES Final Result documented in this encounter Visit Diagnoses Not on filedocumented in this encounter Care Teams Promotional Representative Relationship Specialty Start Date End Date Jesús Tripathi MD [address] [facility] 110 [place] [address] PCP - [employer] 07/06/20 Jesús Tripathi MD [address] [facility] 110 [place] [address] PCP - General Internal Medicine 11/11/22 documented as of this encounter
--- OUTSIDE RECORDS SUMMARY | 2025-02-08 10:11 | XMS_ITS | Encounter Summary ---
Author Organization [facility] Address [address] [place] [address] Care Team Providers Care Dry Primer Powder Blender Name Role Phone Jesús Tripathi MD Unavailable [phone] Jesús Tripathi MD Primary Care Provider [phone] Encounter Details Date Type Department Care Team (Late st Contact Info) Description 06/06/[address] [facility] [address] [facility] 110 [place] [address] Jesús Tripathi MD [address] [facility] 110 [place] [address] Social History Tobacco Use Types Packs/Day Years [...] Date Recorded Patient Health Questionnaire-2 Score 0 06/06/2024 Comments No Sex and Gender Information Value Date Recorded Sex Assigned at Female 05/20/2023 10:49 AM EST Legal Sex Female 6:38 PM EDT Gender Identity Female 05/20/2023 10:49 AM EST Sexual Orientation Not on file documented as of this encounter Functional Status * Over the past 2 weeks, how often have you been bothered by any of the following problems? Question Answer Date of Assessment Author Little interest or pleasure in doing things Not at all 06/06/2024 9:00 AM Linh Loya M A Feeling down, depressed, or hopeless Not at all 06/06/2024 9:00 AM Linh Loya M A Patient Health Questionnaire -2 Score 0 06/06/2024 9:00 AM Linh Loya M A * Question Answer Date of Assessment Author Trouble falling or staying asleep, or sleeping too much Not at all 06/06/2024 9:00 AM Linh Loya MA Feeling tired or having pablo le energy Not at all 06/06/2024 9:00 AM Linh Loya M A Poor appetite or overeating Not at all 06/06/2024 9: 00 AM Linh Loya MA Feeling bad about yourself - or that you are a failure or have let yourself or your family down Not at all 06/06/2024 9:00 AM Linh Moreira MA Trouble concentrating on thi ngs, such as reading the newspaper or watching television Not at all 06/06/2024 9:00 AM Linh Loya M A Moving or speaking so slowly that other people could have noticed? Or the opposite - being so fidgety or restless that you have been moving around a lot more than usual. Not at all 06/06/2024 9:00 AM Linh Loya M A Thoughts that you would be better off or hurting yourself in some way Not at all 06/06/2024 9:00 AM Linh Loya MA Patient Health Questionnaire -9 Score 0 06/06/2024 9:00 AM Linh Loya M A documented as of this encounter Plan of Treatment Upcoming Encounters Date Type Department Care Team (Late st Contact Info) Description 12/18/2025 10:45 AM EDT Office Visit [facility] [address] [place] [address] Kiet Pacheco DO [address] [place] [address] documented as of this encounter Visit Diagnoses Not on filedocumented in this encounter Additional Health Concerns Assessment Noted Time PHQ-9 Depression Total Score: 0 06/06/20 24 9:00 AM EST documented as of this encounter Care Teams Dry Primer Powder Blender Relationship Specialty Start Date End Date Jesús Tripathi MD [address] [facility] 110 [place] [address] PCP - [employer] 07/06/20 Jesús Tripathi MD [address] [facility] 110 [place] [address] PCP - General Internal Medicine 11/11/22 documented as of this encounter
--- OUTSIDE RECORDS SUMMARY | 2025-02-08 10:11 | XMS_ITS | Encounter Summary ---
Author Organization [facility] Address [address] [place] [address] Care Team Providers Care Resource Center Teacher Name Role Phone Jesús Tripathi MD Unavailable [phone] Jesús Tripathi MD Primary Care Provider [phone] Encounter Details Date Type Department Care Team (Late st Contact Info) Description 12/08/2023 Abstract [facility] [address] [facility] 110 [place] [address] Jesús Tripathi MD [address] [place] [facility] 110 [place] [address] Social History Tobacco Use Types Packs/Day Years [...] [facility] [address] [place] [phone] Kiet Pacheco DO [address] [place] [address] documented as of this encounter Visit Diagnoses Not on filedocumented in this encounter Care Teams Resource Center Teacher Relationship Specialty Start Date End Date Jesús Tripathi MD [address] [facility] 110 [place] [address] PCP - [employer] 07/06/20 Jesús Tripathi MD [address] [facility] 110 [place] [address] PCP - General Internal Medicine 11/11/22 documented as of this encounter
--- OUTSIDE RECORDS SUMMARY | 2025-02-08 10:11 | XMS_ITS | Encounter Summary ---
Author Organization [facility] Address [address] [place] [address] Care Team Providers Care Liquid Waste Treatment Plant Operator Name Role Phone Jesús Tripathi MD Unavailable [phone] Jesús Tripathi MD Primary Care Provider [phone] Encounter Details Date Type Department Care Team (Late st Contact Info) Description 12/05/2024 Abstract [facility] [place] [facility] [address] [facility] 210 [place] [address] Kiet Pacheco DO [address] [facility] 210 [place] [address] Social History Tobacco Use Types Packs/Day Years [...] Date Recorded Patient Health Questionnaire-2 Score 0 11/01/2024 Comments No Sex and Gender Information Value [...] [facility] [address] [place] [address] Kiet Pacheco DO [address] [place] [address] documented as of this encounter Visit Diagnoses Not on filedocumented in this encounter Additional Health Concerns Assessment Noted Time PHQ-9 Depression Total Score: 0 06/06/20 24 9:00 AM EST documented as of this encounter Care Teams Liquid Waste Treatment Plant Operator Relationship Specialty Start Date End Date Jesús Tripathi MD [address] [facility] 110 [place] [address] PCP - [employer] 07/06/20 Jesús Tripathi MD [address] [facility] 110 [place] [address] PCP - General Internal Medicine 11/11/22 documented as of this encounter
--- OUTSIDE RECORDS SUMMARY | 2025-02-08 10:11 | XMS_ITS | Encounter Summary ---
Author Organization [facility] Address [address] [place] [address] Care Team Providers Care Licensing Director Name Role Phone Jesús Tripathi MD Unavailable [phone] Jesús Tripathi MD Primary Care Provider [phone] Encounter Details Date Type Department Care Team (Late st Contact Info) Description 02/01/2024 Abstract [facility] [address] [facility] 110 [place] [address] Jesús Tripathi MD [address] [facility] 110 [place] [address] Social History Tobacco Use Types Packs/Day Years [...] [address] [place] [phone] Kiet Pacheco DO [address] [place] [address] documented as of this encounter Visit Diagnoses Not on filedocumented in this encounter Care Teams Licensing Director Relationship Specialty Start Date End Date Jesús Tripathi MD [address] [facility] 110 [place] [address] PCP - [employer] 07/06/20 Jesús Tripathi MD [address] [facility] 110 [place] [address] PCP - General Internal Medicine 11/11/22 documented as of this encounter
--- OUTSIDE RECORDS SUMMARY | 2025-02-08 10:11 | XMS_ITS | Encounter Summary ---
Author Organization [facility] Address [address] [place] [address] Care Team Providers Care Osteopathic Medicine Teacher Name Role Phone Jesús Tripathi MD Unavailable [phone] Jesús Tripathi MD Primary Care Provider [phone] Encounter Details Date Type Department Care Team (Late st Contact Info) Description 01/31/2025 [facility] 110 [place] [phone] Jesús Tripathi MD 112 [facility] 110 [place] [address] Social History Tobacco Use Types Packs/Day Years [...] week 01/23/2025 How often do you attend cheondoism or church serv ices? Never 01/23/2025 Do you belong to any clubs o r organizations such as cheondoism groups, unions, fraternal or athletic groups, or [...] Recorded Patient Health Questionnaire-2 Score 0 01/23/2025 [facility] - [...] any time in the past 12 m [facility], were you homeless or living in a fci (including now)? No 01/23/2025 Comments No Sex [...] [facility] [address] [place] [address] Kiet Pacheco DO [address] [place] [address] documented as of this encounter Visit Diagnoses Not on filedocumented in this encounter Additional Health Concerns Assessment Noted Time PHQ-9 Depression Total Score: 0 06/06/20 24 9:00 AM EST documented as of this encounter Care Teams Osteopathic Medicine Teacher Relationship Specialty Start Date End Date Jesús Tripathi MD [address] [place] [address] PCP - [employer] 07/06/20 Jesús Tripathi MD 112 [facility] [address] [place] [id number] PCP - General Internal Medicine 11/11/22 documented as of this encounter
== END 2025-02-08 10:08 | disposition home or self-care (01) ==
LOC: US 10:09
PROVIDERS: PCP Internal Medicine; Visit Provider Internal Medicine
DX: R09.89 Other specified symptoms and signs involving the circulatory and respiratory systems (principal); I65.23 Occlusion and stenosis of bilateral carotid arteries
CPT/HCPCS: 93880

== ENCOUNTER 2025-02-18 18:27 | Observation (INO) | payer MEDICARE, OTHER, SELFPAY ==
[2025-02-18] VITALS (32 sets, daily range): BP systolic 133–206; BP diastolic 67–121; PULSE 66–167; TEMP 36.6–36.8; O2SAT 96–100; BMI 25.4
--- OUTSIDE RECORDS SUMMARY | 2025-02-18 18:36 | XMS_ITS | CCD ---
Author Organization [facility] Care Team Providers Care Timber Faller Name Role Phone DR JESÚS TRIPATHI Consulting Unavailable DEUCE, DR TREVIÑO Attending Unavailable TRIPATHI, DR TREVIÑO Admitting Unavailable DEUCE, DR TREVIÑO Primary Care Unavailable BLANCH, DR WEI Ferro Consulting Unavailable Jesús Tripathi MD Unavailable Jesús Tripathi MD Primary Care Provider [phone] TRACEE WOMACK Attending Unavailable BLACKSTONJHOANA Attending Unavailable TRIPATHI JESÚS B Referring Unavailable KELBLEY, JOHN Attending Unavailable DEUCE JESÚS B Referring Unavailable BLACKSTONJHOANA Attending Unavailable TRIPATHI, JESÚS B Referring Unavailable KELBLEY, JOHN Attending Unavailable TRIPATHI, JESÚS B Referring Unavailable KELBLEY, JOHN Attending Unavailable TRIPATHI, JESÚS B Referring Unavailable VISCI, KIET Leigh Attending Unavailable BLACKSTONJHOANA Attending Unavailable TRIPATHI, JESÚS B Referring Unavailable TORIE MCLAIN Attending Unavailable KELBLEY, JOHN Attending Unavailable TRIPATHI, JESÚS B Referring Unavailable KELBLEY, JOHN Attending Unavailable TRIPATHI, JESÚS B Referring Unavailable KELBLEY, JOHN Attending Unavailable TRIPATHI, JESÚS B Referring Unavailable KELBLEY, JOHN Attending Unavailable TRIPATHI, JESÚS B Referring Unavailable KELBLEY, JOHN Attending Unavailable TRIPATHI, JESÚS B Referring Unavailable KELBLEY, JOHN Attending Unavailable TRIPATHI, JESÚS B Referring Unavailable TRIPATHI, JESÚS B Attending Unavailable TRIPATHI JESÚS B Attending Unavailable TRIPATHI JESÚS B Attending Unavailable TRIPATHI, JESÚS B Attending Unavailable APLING, BINTA B Attending Unavailable TRIPATHI, JESÚS B Referring Unavailable APLING, BINTA B Referring Unavailable APLING, BINTA B Attending Unavailable Jesús Tripathi II Primary Care Provider Kiet Pacheco DO Attending Provider [phone] Kiet Pacheco Attending Unavailable ViscK[address] way Admitting Unavailable Jesús Tripathi Primary Care Unavailable Medications Current Medications Medication Drug Class(es) Dates Sig (Normalized) Sig (Original) ibuprofen 800 mg oral tablet (3 sources) Nonsteroidal Anti-inflammatory Drug Start: 03-25-2024 End: 04-24-2024 take 1 tablet by mouth in the morning, then take 1 tablet by mouth in the evening, then take 1 tablet by mouth at bedtime ibuprofen 800 MG tablet Indications: Left lumbar radiculitis Take 1 tablet (800 mg) by mouth in the morning and 1 tablet (800 mg) in the evening and 1 tablet (800 mg) before bedtime. 90 tablet 03/25/2024 04/24/2024 Active ketotifen 0.25 mg/ml ophthalmic solution (1 source) Histamine-1 Receptor Inhibitor Start: 12-07-2023 take 1 drop(s) into the eye(s) every twelve hours as needed latanoprost 0.05 mg/ml ophthalmic solution (20 sources) Prostaglandin Analog Start: 11-24-2023 omeprazole 40 mg delayed release oral capsule (20 sources) Proton Pump Inhibitor Start: 03-25-2024 End: 04-24-2024 take 1 capsule by mouth before mealtime omeprazole (PriLOSEC) [address] capsule Indications: Dyspepsia Take 1 capsule (40 mg) by mouth in the morning. Take before meals. Do not crush or chew.. 30 capsule 03/25/2024 Active predniSONE 20 mg oral tablet (2 sources) Start: 12-07-2023 End: 01-28-2024 take 2 tablets by mouth once daily, then take 1 tablet by mouth once daily rosuvastatin calcium 20 mg oral tablet (20 sources) HMG-CoA Reductase Inhibitor Start: 2024 End: 2025 take 1 tablet by mouth in the morning rosuvastatin (Crestor) 20 MG tablet Indications: Hyperlipidemia, unspecified hyperlipidemia type Take 1 tablet (20 mg) by mouth in the morning. 90 tablet 3 2024 2025 Active Start: 06-23-2023 End: 2024 rosuvastatin (Crestor) 10 MG tablet Indications: Hyperlipidemia, unspecified hyperlipidemia type (CMS/HCC) TAKE 1 TABLET IN THE MORNING 100 tablet 3 05/18/2024 2024 Discontinued (Reorder) traMADol hydrochloride 50 mg oral tablet (20 sources) Opioid Agonist Start: 12-14-2024 End: 04-30-2025 take 1 tablet by mouth every six hours for pain traMADol (Ultram) 50 MG tablet Indications: Polyosteoarthritis, unspecified Take 1 tablet (50 mg) by mouth every 6 (six) hours if needed for severe pain 120 tablet 2 01/30/2025 04/30/2025 Active Start: 10-10-2024 End: 11-09-2024 take 1 tablet by mouth every six hours for pain traMADol (Ultram) 50 MG tablet Indications: Polyosteoarthritis, unspecified Take 1 tablet (50 mg) by mouth every 6 (six) hours if needed for severe pain 120 tablet 10/10/2024 11/09/2024 Active Start: 12-09-2023 End: 08-31-2024 take 1 tablet by mouth every six hours for pain traMADol (Ultram) 50 MG tablet Indications: Polyosteoarthritis, unspecified Take 1 tablet (50 mg) by mouth every 6 (six) hours if needed for severe pain 120 tablet 08/01/2024 08/31/2024 Active zolpidem tartrate 10 mg oral tablet (20 sources) gamma-Aminobutyric Acid-ergic Agonist Start: 07-02-2023 End: 06-03-2025 zolpidem (Ambien) 10 MG tablet Indications: Insomnia, unspecified type Take 1 tablet (10 mg) by mouth as needed at bedtime for sleep 30 tablet 3 12/05/2024 06/03/2025 Active Completed/Discontinued Medications Medication Drug Class(es) Dates Sig (Normalized) Sig (Original) 1 ml methylPREDNISolone acetate 40 mg/ml injection (16 sources) Corticosteroid Start: 12-09-2024 End: 12-09-2024 40 mg, Intra-articular, Once PRN Procedure, Starting on Thu12/09/24 at 1102, For 1 dose Start: 12-09-2024 End: 12-09-2024 methylPREDNISolone acetate ( DEPO-Medrol) injection 40 mg Start: 06-20-2024 End: 06-20-2024 40 mg, Intra-articular, Once PRN Procedure, Starting on Thu06/20/24 at 1215, For 1 dose Start: 06-20-2024 End: 06-20-2024 methylPREDNISolone acetate ( DEPO-Medrol) injection 40 mg Start: 06-13-2024 End: 06-13-2024 40 mg, Intra-articular, Once PRN Procedure, Starting on Thu06/13/24 at 0954, For 1 dose Start: 06-13-2024 End: 06-13-2024 methylPREDNISolone acetate ( DEPO-Medrol) injection 40 mg Problems Active Problems Problem Classification Problem Date Documented Da te Episodic/Chronic Allergic reactions (2 sources) Allergic disorder of skin; Translations: [Allergic contact dermatitis, unspecified cause] 12-07-2023 Episodic Conditions associated with dizziness or vertigo (2 sources) Lightheadedness; Translations: [Dizziness and giddiness] 11-01-2024 Episodic Disorders of lipid metabolism (20 sources) Hyperlipidemia; Translations: [Hyperlipidemia, unspecified] Onset: 04-30-2023 04-30-2023 Chronic Essential hypertension (20 sources) Hypertensive disorder; Translations: [Essential (primary) hypertension] Onset: 04-30-2023 Resolved: 01-30-2025 04-30-2023 Chronic Glaucoma (1 source) Glaucoma; Translations: [Unspecified glaucoma] 12-07-2023 Chronic Inflammation; infection of eye (except that caused by tuberculosis or sexually transmitteddisease) (1 source) Allergic conjunctivitis; Translations: [Acute atopic conjunctivitis, unspecified eye] 12-07-2023 Episodic Menopausal disorders (20 sources) Atrophic vaginitis; Translations: [Postmenopausal atrophic vaginitis] Onset: 04-30-2023 04-30-2023 Chronic Miscellaneous mental health disorders (2 sources) Primary insomnia; Translations: [Primary insomnia] 01-30-2025 Chronic Osteoarthritis (20 sources) Osteoarthritis of multiple joints ; Translations: [Polyosteoarthritis, unspecified] Onset: 04-30-2023 05-25-2024 Chronic Osteoporosis (20 sources) Osteoporosis; Translations: [Age-related osteoporosis without current pathological fracture] Onset: 04-30-2023 04-30-2023 Chronic Other bone disease and musculoskeletal deformities (2 sources) Osteopenia; Translations: [Other specified disorders of bone density and structure, right thigh] 12-05-2024 Episodic Other circulatory disease (4 sources) Carotid bruit; Translations: [Other specified symptoms and signs involving the circulatory and respiratory systems] 01-30-2025 Episodic Other non-traumatic joint disorders (4 sources) Arthritis of left knee 06-14-2024 Chronic Other non-traumatic joint disorders (4 sources) Arthritis of right knee 06-20-2024 Chronic Other non-traumatic joint disorders (6 sources) Pain in right knee; Translations: [Pain in joint, lower leg] 06-11-2024 Episodic Other non-traumatic joint disorders (6 sources) Pain in left knee; Translations: [Pain in joint, lower leg] 06-11-2024 Episodic Other screening for suspected conditions (not mental disorders or infectious disease) (9 sources) Patient encounter status; Translations: [Encounter for screening mammogram for malignant neoplasm of breast] Onset: 02-07-2025 04-04-2024 Episodic Other upper respiratory disease (20 sources) Allergic rhinitis; Translations: [Other allergic rhinitis] Onset: 04-30-2023 04-30-2023 Chronic Residual codes; unclassified (20 sources) Insomnia; Translations: [Insomnia, unspecified] Onset: 04-30-2023 04-30-2023 Episodic Residual codes; unclassified (2 sources) Menopause present; Translations: [Asymptomatic menopausal state] 12-05-2024 Episodic Spondylosis; intervertebral disc disorders; other back problems (20 sources) Other spondylosis, lumbar region; Translations: [Lumbar spondylosis] Onset: 06-02-2016 04-30-2023 Chronic Spondylosis; intervertebral disc disorders; other back problems (20 sources) Low back pain; Translations: [Lumbar radiculitis] Onset: 05-26-2016 Episodic Past or Other Problems Problem Classification Problem Date Documented Da te Episodic/Chronic Mood disorders (20 sources) Mood disorders Onset: 06-06-2024 06-06-2024 Other non-epithelial cancer of skin (20 sources) Basal cell carcinoma of upper extremity; Translations: [Basal cell carcinoma of skin of left upper limb, including shoulder] Onset: 04-30-2023 04-30-2023 Episodic Other skin disorders (20 sources) Swelling of head; Translations: [Localized swelling, mass and lump, head] Onset: 04-30-2023 Resolved: 01-30-2025 04-30-2023 Episodic Results Test Name Value Interpretation Reference Range Facility MM screening mammo BI w/CADo n 02-07-2025 MM screening mammo BI w/CAD [facility] [address] [place] [address] Mammography Report Signed Patient: Alena Tapia MR#: [id number] 31 : 1945 Acct:[id number] Age/Sex: 79 / F Adm Date: 02/07/25 Loc: [place] Room: Type: [facility] Attending Dr: Kiet Pacheco DO Ordering Provider: Kiet Pacheco DO Date of Service: 02/07/25 Procedure(s): MM screening mammo BI w/CAD Accession Number(s): ([id number]) MM/MM screening mammo BI w/CAD: SCREENING Copies [...] Quinn M.D. 02/07/2025 4:20 PM Dictation Location: [facility] Dictated By: Deshawn Quinn II, MD 02/07/25 6632 Signed By: 02/07/25 1620 [facility] Mammography reportOrdered By : Deshawn Quinn on 02-07-2025 Diagnostic imaging study [facility] [address] [place] [address] Mammography Report Signed Patient: Alena Tapia MR#: [id number] : 1945 Acct:[id number] Age/Sex: 79 / F Adm Date: 5 Loc: [place] Room: Type: [facility] Attending Dr: Kiet Pacheco DO Ordering Provider: Kiet Pacheco DO Date of Service: 02/07/25 Procedure(s): MM screening mammo BI w/CAD Accession Number(s): ([id number]) MM/MM screening mammo BI w/CAD: SCREENING Copies to: MD Kiet Casanova II, DO~ CLINICAL DATA: Screening for malignancy. BILATERAL SCREENING MAMMOGRAMS - FULL FIELD DIGITAL WITH TOMOSYNTHESIS AND CAD Tomosynthesis craniocaudal and mediolateral oblique views of both breasts were obtained using low-dose digital technique. Comparison is made to prior studies from 09/01/2023, 06/24/2022, 04/08/2021, and 12/07/2019. This examination was reviewed with the aid of CAD. There are scattered fibroglandular densities. Benign-appearing lymph nodes are noted along the chest wall. Benign-appearing calcifications are present. Similarfocal asymmetries are present bilaterally. There are no [...] Quinn M.D. 02/07/2025 4:20 PM Dictation Location: [facility] Dictated By: Deshawn Quinn II, MD 02/07/25 1613 Signed By: 02/07/25 1620 [facility] Work Phone: No Panel Informationon 12-09 DOMINIQUE Harris 12/09/2024 11:25 AM L Inj/Asp: [...] and draped in the usual sterile fashion. [facility] Nim[facility] DOMINIQUE Card 12/09/2024 11:25 AM L Inj/Asp: L knee [...] and draped in the usual sterile fashion. [facility] Nimia No Panel Informationon 06-20 Binta Gannon NP 06/20/2024 12:16 PM L Inj/Asp: R knee on 06/20/2024 12:15 PM Indications: pain Details: 20 G needle, anterolateral approach Medications: 40 mg methylPREDNISolone acetate 40 MG/ML UTILIZING ASEPTIC TECHNIQUE PT GIVEN INJECTION IN RIGHT KNEE, NEUROVASC INTACT S/P INJ, TOLERATED WELL Procedure, treatment alternatives, risks and benefits explained, specific risks discussed. Consent was given by the patient. [facility] [employer] No Panel Informationon 06-13 Binta Gannon NP 06/14/2024 12:31 PM L Inj/Asp: L knee on 06/13/2024 9:54 AM Indications: pain Details: 20 G needle, anterolateral approach Medications: 40 mg methylPREDNISolone acetate 40 MG/ML Procedure, treatment alternatives, risks and benefits explained, specific risks discussed. Consent was given by the patient. [facility] Study observation (narrative) Snipd XR Knee - left 1 or 2 Viewso n 06-13-2024 Imaging Result: AP and lateral views of left knee showed severe varus deformity with [id number] articulation to the medial joint line, flattening of the articular surfaces to the medial joint line lateral joint line and patellofemoral joint. Subchondral sclerosis was noted at the medial joint line surfaces as well as the lateral joint line and patellofemoral joint. Marginal osteophytic formation was noted tricompartmentally. There is no evidence of fracture or dislocation. 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 There is flattening of the articular surfaces medially to the tibia plateau and femoral condyle. There is marginal osteophytic formation and subchondral sclerosis noted medially and the patellofemoral joint. There is no evidence of fracture or dislocation. Bony structures viewed showed appropriate ossification. Snipd XR Knee - right 1 or 2 Views Ordered By: Jr. Kenny on 06-13-2024 [employer] Work Phone: CBC (INCLUDES DIFF/PLT)on Basophils (Bld) [#/Vol] 0.028 10*3/uL Normal 0-200 [facility] Comment on above: Performed By: #### 7 813, 78797, 6692 #### [facility] [address], [address] [place], [place] [id number] [employer]: Devan Colbert MD Basophils/100 WBC (Bld) 0.5 % Normal [facility] Comment on above: Performed By: #### 7 450, 58774, 9775 #### [facility] [address], [address] [place], [place] [address] [employer]: Devan Colbert MD Eosinophils (Bld) [#/Vol] 0.112 10*3/uL Normal 15-500 [facility] Comment on above: Performed By: #### 7 489, 56204, 6399 #### [facility] [place] [address] [employer]: Devan Colbert MD Eosinophils/100 WBC (Bld) 2.0 % Normal [facility] Comment on above: Performed By: #### 7 600, 71128, 6399 #### [facility] [place] [address] [employer]: Devan Colbert MD Erythrocyte distribution width (RBC) [Ratio] 12.2 % Normal 11.0-15.0 [facility] Comment on above: Performed By: #### 7 600, 47558, 6399 #### [facility] [place] [address] [employer]: Devan Colbert MD Hematocrit (Bld) [Volume fraction] 38.2 % Normal 35.0-45.0 [facility] Comment on above: Performed By: #### 7 600, 25219, 6399 #### [facility] [place] [address] [employer]: Devan Colbert MD Hemoglobin (Bld) [Mass/Vol] 12.6 g/dL Normal 11.7-15.5 [facility] Comment on above: Performed By: #### 7 600, 74311, 6399 #### [facility] [place] [address] [employer]: Devan Colbert MD Lymphocytes (Bld) [#/Vol] 1.674 10*3/uL Normal 850-3900 [facility] Comment on above: Performed By: #### 7 600, 12186, 6399 #### [facility] [place] [address] [employer]: Devan Colbert MD Lymphocytes/100 WBC (Bld) 29.9 % Normal [facility] Comment on above: Performed By: #### 7 600, 34679, 6399 #### [place] [address] [employer]: Devan Colbert MD MCH (RBC) [Entitic mass] 31.0 pg Normal 27.0-33.0 [facility] Comment on above: Performed By: #### 7 600, 28866, 6399 #### [facility] [place] [address] [employer]: Devan Colbert MD MCHC (RBC) [Mass/Vol] 33.0 g/dL Normal 32.0-36.0 [facility] Comment on above: Result Comment: For adults, a slight decrease in the calculated MCHC value (in the range of 30 to 32 g/dL) is most likely not clinically significant; however, it should be interpreted with caution in correlation with other red cell parameters and the patient's clinical condition. Performed By: #### 7 600, 85211, 0999 #### [facility] [place] [address] [employer]: Devan Colbert MD MCV (RBC) [Entitic vol] 94.1 fL Normal 80.0-100.0 [facility] Comment on above: Performed By: #### 7 600, 96284, 4999 #### [facility] [place] [address] [employer]: Devan Colbert MD Monocytes (Bld) [#/Vol] 0.526 10*3/uL Normal 200-950 [facility] Comment on above: Performed By: #### 7 600, 78464, 3899 #### [facility] [place] [address] [employer]: Devan Colbert MD Monocytes/100 WBC (Bld) 9.4 % Normal [facility] Comment on above: Performed By: #### 7 600, 74102, 3399 #### [facility] [place] [address] [employer]: Devan Colbert MD Neutrophils (Bld) [#/Vol] 3.259 10*3/uL Normal 6349-6651 [facility] Comment on above: Performed By: #### 7 600, 33033, 6399 #### [facility] of [address], [address] [place] [address] [employer]: Devan Colbert MD Neutrophils/100 WBC (Bld) 58.2 % Normal [facility] Comment on above: Performed By: #### 7 600, 62881, 6399 #### [facility] of [address], [address] [place] [address] [employer]: Devan Colbert MD Platelet mean volume (Bld) [Entitic vol] 9.9 fL Normal 7.5-12.5 [facility] Comment on above: Performed By: #### 7 600, 43178, 6399 #### [facility] of [address], [address] [place] [address] [employer]: Devan Colbert MD Platelets (Bld) [#/Vol] 332 10*3/uL Normal 140-400 [facility] Comment on above: Performed By: #### 7 600, 45152, 6399 #### [facility] of [address], [address] [place] [address] [employer]: Devan Colbert MD RBC (Bld) [#/Vol] 4.06 10*6/uL Normal 3.80-5.10 [facility] Comment on above: Performed By: #### 7 600, 31320, 6399 #### [facility] of [address], [address] [place] [address] [employer]: Devan Colbert MD WBC (Bld) [#/Vol] 5.6 10*3/uL Normal 3.8-10.8 [facility] Comment on above: Performed By: #### 7 600, 43605, 6399 #### [facility] of [address], [address] [place] [address] [employer]: Devan Colbert MD COMPREHENSIVE METABOLIC PANE [facility] 06-07-2024 Albumin [Mass/Vol] 4.2 g/dL Normal 3.6-5.1 [facility] Comment on above: Performed By: #### 7 600, 54805, 6399 #### [facility] of [address], [address] [place] [address] [employer]: Devan Colbert MD Albumin/Globulin [Mass ratio] 2.0 {ratio} Normal 1.0-2.5 [facility] Comment on above: Performed By: #### 7 600, 02239, 6399 #### [facility] of [address], [address] [place] [address] [employer]: Devan Colbert MD ALP [Catalytic activity/Vol] 64 U/L Normal 37-153 [facility] Comment on above: Performed By: #### 7 600, 30966, 6399 #### [facility] of [address], [address] [place] [address] [employer]: Devan Colbert MD ALT [Catalytic activity/Vol] 14 U/L Normal 6-29 [facility] Comment on above: Performed By: #### 7 600, 29601, 6399 #### [facility] [place] [address] [employer]: Devan Colbert MD AST [Catalytic activity/Vol] 21 U/L Normal 10-35 [facility] Comment on above: Performed By: #### 7 600, 80932, 6399 #### [facility] [place] [address] [employer]: Devan Colbert MD Bilirubin [Mass/Vol] 0.5 mg/dL Normal 0.2-1.2 [facility] Comment on above: Performed By: #### 7 600, 35752, 6399 #### [facility] [place] [address] [employer]: Devan Colbert MD Calcium [Mass/Vol] 9.3 mg/dL Normal 8.6-10.4 [facility] Comment on above: Performed By: #### 7 600, 63484, 6399 #### [facility] of [address], [address] [place] [address] [employer]: Devan Colbert MD Chloride [Moles/Vol] 104 mmol/L Normal 98-110 [facility] Comment on above: Performed By: #### 7 600, 89566, 6399 #### [facility] of [address], [address] [place] [address] [employer]: Devan Colbert MD CO2 [Moles/Vol] 29 mmol/L Normal 20-32 [facility] Comment on above: Performed By: #### 7 600, 70041, 6399 #### [facility] of [address], [address] [place] [address] [employer]: Devan Colbert MD Creatinine [Mass/Vol] 0.53 mg/dL Low 0.60-1.00 [facility] Comment on above: Performed By: #### 7 600, 22531, 6399 #### [facility] of [address], [address] [place] [address] [employer]: Devan Colbert MD GFR/1.73 sq M.predicted among non-blacks MDRD (S/P/Bld) [Vol rate/Area] 95 mL/min/{1.73_m2} Normal > OR = 60 [facility] Comment on above: Performed By: #### 7 600, 50422, 6399 #### [facility] [place] [address] [employer]: Devan Colbert MD Globulin (S) [Mass/Vol] 2.1 g/dL Normal 1.9-3.7 [facility] Comment on above: Performed By: #### 7 600, 05787, 6399 #### [facility] of [address], [address] [place] [address] [employer]: Devan Colbert MD Glucose [Mass/Vol] 93 mg/dL Normal 65-99 [facility] Comment on above: Result Comment: Fasting reference interval Performed By: #### 7 600, 94195, 6399 #### [facility] of [address], [address] [place] [address] [employer]: Devan Colbert MD Potassium [Moles/Vol] 4.4 mmol/L Normal 3.5-5.3 [facility] Comment on above: Performed By: #### 7 600, 74908, 6399 #### [facility] [place] [address] [employer]: Devan Colbert MD Protein [Mass/Vol] 6.3 g/dL Normal 6.1-8.1 [facility] Comment on above: Performed By: #### 7 600, 33254, 6399 #### [facility] [place] [address] [employer]: Devan Colbert MD Sodium [Moles/Vol] 142 mmol/L Normal 135-146 [facility] Comment on above: Performed By: #### 7 600, 37922, 6399 #### [facility] [place] [address] [employer]: Devan Colbert MD Urea nitrogen [Mass/Vol] 20 mg/dL Normal 7-25 [facility] Comment on above: Performed By: #### 7 600, 23674, 6399 #### [facility] [place] [address] [employer]: Devan Colbert MD Urea nitrogen/Creatinin e [Mass ratio] 38 mg/mg High 6-22 [facility] Comment on above: Performed By: #### 7 600, 20276, 6399 #### [facility] [place] [address] [employer]: Devan Colbert MD LIPID PANEL, [facility] 12-0 Cholesterol [Mass/Vol] 207 mg/dL High <200 [facility] Comment on above: Order Comment: FASTI NG:YES FASTING: YES Performed By: #### 7 600, 90985, 6399 #### [facility] [place] [address] [employer]: Devan Colbert MD Cholesterol in HDL [Mass/Vol] 82 mg/dL Normal > OR = 50 [facility] Comment on above: Order Comment: FASTI NG:YES FASTING: YES Performed By: #### 7 600, 46584, 6399 #### [facility] [address] [address], [address] [place] [address] [employer]: Devan Colbert MD Cholesterol in LDL [Mass/Vol] 111 mg/dL High [facility] Comment on above: Order Comment: FASTI NG:YES FASTING: YES Result Comment: Refe rence range: <100 Desirable range <100 mg/dL for primary prevention; <70 mg/dL for patients with CHD or diabetic patients with > or = 2 CHD risk factors. LDL-C is now calculated using the Shankar calculation, which is a validated novel method providing better accuracy than the Friedewald equation in the estimation of LDL-C. Matheus SS et al. TOSHA. 2013;310(19): 1543-6801 (http://education.Camiloo/faq/XBQ659) Performed By: #### 7 600, [id number], [id number] #### [facility] [address], [address] [place] [address] [employer]: Devan Colbert MD Cholesterol.total/ Cholesterol in HDL [Mass ratio] 2.5 {ratio} Normal <5.0 [facility] Comment on above: Order Comment: FASTI NG:YES FASTING: YES Performed By: #### 7 600, [id number], [id number] #### [facility] [address], [address] [place] [address] [employer]: Devan Colbert MD NON HDL CHOLESTEROL 125 mg/dL (calc) Normal <130 [facility] Comment on above: Order Comment: FASTI NG:YES FASTING: YES Result Comment: For patients with diabetes plus 1 major ASCVD risk factor, treating to a non-HDL-C goal of <100 mg/dL (LDL-C of <70 mg/dL) is considered a therapeutic option. Performed By: #### 7 600, [id number], [id number] #### [facility] [address], [address] [place] [address] [employer]: Devan Colbert MD Triglyceride [Mass/Vol] 62 mg/dL Normal <150 [facility] Comment on above: Order Comment: FASTI NG:YES FASTING: YES Performed By: #### 7 600, [id number], [id number] #### [facility] [address] [place] [address], [address] [place] [address] [employer]: Devan Colbert MD TSH W/REFLEX TO FT4on 2023 TSH W/REFLEX TO FT4 2.13 mIU/L Normal 0.40-4.50 [facility] Comment on above: Performed By: #### 7 600, [id number], [id number] #### [facility] [address] [facility], [address] [place] [address] [employer]: Devan Colbert MD HbA1c (Bld) [Mass fraction]o n 06-06-2024 [facility] 06-06-2024 HbA1c (Bld) [Mass fraction] 5.5 % [facility] Vital Signs Date Time Vital Sign Value Performing Clinician Facility 01-30-2025 09:26-0400 Body height 163.2 cm Jesús Tripathi MD Work Phone: [facility] 01-30-2025 09:26-0400 Diastolic blood pressure 80 mm[Hg] Jesús Tripathi MD Work Phone: [facility] 01-30-2025 09:26-0400 Heart rate 89 /min Jesús Tripathi MD Work Phone: [facility] 01-30-2025 09:26-0400 SaO2% (BldA) [Mass fraction] 96 % Jesús Tripathi MD Work Phone: [facility] 01-30-2025 09:26-0400 Systolic blood pressure 128 mm[Hg] Jesús Tripathi MD Work Phone: [facility] 12-05-2024 14:46-0400 Body mass index (BMI) [Ratio] 25.55 kg/m2 Kiet Pacheco DO Work Phone: [facility] 12-05-2024 14:46-0400 Body weight 68.04 kg Kiet Pacheco DO Work Phone: [facility] 12-05-2024 14:46-0400 Diastolic blood pressure 76 mm[Hg] Kiet Visci DO Work Phone: [facility] 12-05-2024 14:46-0400 Systolic blood pressure 140 mm[Hg] Kiet Visci DO Work Phone: [facility] 11-01-2024 13:33-0400 Body height 163.2 cm Tracee Hemmer PA Work Phone: [facility] 11-01-2024 13:33-0400 Body mass index (BMI) [Ratio] 25.68 kg/m2 Tracee Hemmer PA Work Phone: [facility] 11-01-2024 13:33-0400 Body weight 68.4 kg Tracee Hemmer PA Work Phone: [facility] 11-01-2024 13:33-0400 Diastolic blood pressure 82 mm[Hg] Tracee Hemmer PA Work Phone: [facility] Comment on above: sitting to standing 138/82 11-01-2024 13:33-0400 Heart rate 91 /min Tracee Hemmer PA Work Phone: [facility] 11-01-2024 13:33-0400 Respiratory rate 16 /min Tracee Hemmer PA Work Phone: [facility] 11-01-2024 13:33-0400 SaO2% (BldA) [Mass fraction] 95 % Tracee Hemmer PA Work Phone: [facility] 11-01-2024 13:33-0400 Systolic blood pressure 138 mm[Hg] Tracee Hemmer PA Work Phone: [facility] Comment on above: sitting to standing 138/82 06-06-2024 09:45-0500 Body mass index (BMI) [Ratio] 26.26 kg/m2 Jesús Tripathi MD Work Phone: [facility] 06-06-2024 09:45-0500 Body weight 69.94 kg Jesús Tripathi MD Work Phone: [facility] 06-06-2024 09:45-0500 Diastolic blood pressure 90 mm[Hg] Jesús Tripathi MD Work Phone: [facility] 06-06-2024 09:45-0500 Heart rate 74 /min Jesús Tripathi MD Work Phone: [facility] 06-06-2024 09:45-0500 Respiratory rate 17 /min Jesús Tripathi MD Work Phone: [facility] 06-06-2024 09:45-0500 SaO2% (BldA) [Mass fraction] 97 % Jesús Tripathi MD Work Phone: [facility] 06-06-2024 09:45-0500 Systolic blood pressure 135 mm[Hg] Jesús Tripathi MD Work Phone: [facility] 04-04-2024 14:40-0400 Body height 163.2 cm Jesús Tripathi MD Work Phone: [facility] 04-04-2024 14:40-0400 Body mass index (BMI) [Ratio] 25.21 kg/m2 Jesús Tripathi MD Work Phone: [facility] 04-04-2024 14:40-0400 Body weight 67.13 kg Jesús Tripathi MD Work Phone: [facility] 04-04-2024 14:40-0400 Diastolic blood pressure 72 mm[Hg] Jesús Tripathi MD Work Phone: [facility] 04-04-2024 14:40-0400 Heart rate 71 /min Jesús Tripathi MD Work Phone: [facility] 04-04-2024 14:40-0400 SaO2% (BldA) [Mass fraction] 98 % Jesús Tripathi MD Work Phone: [facility] 04-04-2024 14:40-0400 Systolic blood pressure 128 mm[Hg] Jesús Tripathi MD Work Phone: [facility] 03-17-2024 11:05-0400 Body height 163.2 cm Jesús Tripathi MD Work Phone: [facility] 03-17-2024 11:05-0400 Body mass index (BMI) [Ratio] 25.21 kg/m2 Jesús Tripathi MD Work Phone: [facility] 03-17-2024 11:05-0400 Body temperature 98.29 [degF] Jesús Tripathi MD Work Phone: [facility] 03-17-2024 11:05-0400 Body weight 67.13 kg Jesús Tripathi MD Work Phone: [facility] 03-17-2024 11:05-0400 Diastolic blood pressure 74 mm[Hg] Jesús Tripathi MD Work Phone: [facility] 03-17-2024 11:05-0400 Heart rate 66 /min Jesús Tripathi MD Work Phone: [facility] 03-17-2024 11:05-0400 SaO2% (BldA) [Mass fraction] 100 % Jesús Tripathi MD Work Phone: [facility] 03-17-2024 11:05-0400 Systolic blood pressure 128 mm[Hg] Jesús Tripathi MD Work Phone: [facility] Healthcare Encounters Encounter Date Encounter Type Care Provider Facility Start: 02-07-2025 End: 02-07-2025 Patient encounter procedure Kiet Pacheco DO [facility] Work Phone: Start: 02-07-2025 End: 02-07-2025 ambulatory Jesús Tripathi II Work Phone: [facility] Work Phone: Start: 01-30-2025 End: 01-30-2025 Bamboo flowsheet Jesús Tripathi MD Work Phone: [facility] Start: 01-30-2025 End: 01-30-2025 Bamboo flowsheet Jesús Tripathi MD Work Phone: [facility] Start: 01-30-2025 End: 01-30-2025 Assay of hemosiderin, quant Jesús Tripathi MD Work Phone: [facility] Start: 01-30-2025 End: 01-30-2025 Patient encounter procedure Jesús Tripathi MD Work Phone: [facility] Comment on above: Routine general medi jurgen examination at health care facility (Primary Dx); ACP (advance care planning); Polyosteoarthritis, unspecified; Carotid bruit, unspecified laterality; Primary insomnia; Atrophic vaginitis; Generalized osteoarthritis; Osteoarthritis of spine with radiculopathy, lumbar region; Age-related osteoporosis without current pathological fracture ; Mixed hyperlipidemia Start: 01-30-2025 End: 01-30-2025 ambulatory JESÚS TRIPATHI Not Available Start: 12-28-2024 End: 12-28-2024 Bamboo flowsheet John Kelbley CUSTOMS CONSULTANT [facility] Start: 12-28-2024 End: 12-28-2024 Bamboo flowsheet John Kelbley CUSTOMS CONSULTANT [facility] Start: 12-28-2024 End: 12-28-2024 ambulatory John Kelbley CUSTOMS CONSULTANT [facility] Comment on above: Sciatica without sofi k pain, unspecified laterality (Primary Dx) Start: 12-26-2024 End: 12-26-2024 Bamboo flowsheet John Kelbley CUSTOMS CONSULTANT [facility] Start: 12-26-2024 End: 12-26-2024 Bamboo flowsheet John Kelbley CUSTOMS CONSULTANT [facility] Start: 12-26-2024 End: 12-26-2024 ambulatory John Kelbley CUSTOMS CONSULTANT [facility] Comment on above: Sciatica without sofi k pain, unspecified laterality (Primary Dx) Start: 12-21-2024 End: 12-21-2024 ambulatory John Kelbley CUSTOMS CONSULTANT [facility] Comment on above: Sciatica without sofi k pain, unspecified laterality (Primary Dx) Start: 12-19-2024 End: 12-19-2024 Bamboo flowsheet John Kelbley CUSTOMS CONSULTANT [facility] Start: 12-19-2024 End: 12-19-2024 Bamboo flowsheet John Kelbley CUSTOMS CONSULTANT [facility] Start: 12-19-2024 End: 12-19-2024 ambulatory John Kelbley CUSTOMS CONSULTANT [facility] Comment on above: Sciatica without sofi k pain, unspecified laterality (Primary Dx) Start: 12-14-2024 End: 12-15-2024 ambulatory John Mosley CUSTOMS CONSULTANT [facility] Comment on above: Sciatica without sofi k pain, unspecified laterality (Primary Dx) Polyosteoarthritis, unspecified Start: 12-12-2024 End: 12-12-2024 Bamboo flowsheet John Mosley CUSTOMS CONSULTANT [facility] Start: 12-12-2024 End: 12-12-2024 Bamboo flowsheet John Etienney CUSTOMS CONSULTANT [facility] Start: 12-12-2024 End: 12-12-2024 ambulatory John Mosley CUSTOMS CONSULTANT [facility] Comment on above: Sciatica without sofi k pain, unspecified laterality (Primary Dx) Start: 12-09-2024 End: 12-09-2024 Bamboo flowsheet Torie Mclain PA Work Phone: [facility] Start: 12-09-2024 End: 12-09-2024 Bamboo flowsheet Torie Mclain PA Work Phone: [facility] Start: 12-09-2024 End: 12-09-2024 Office outpatient visit 25 minutes Torie Mclain PA Work Phone: [facility] Comment on above: Right knee pain, uns pecified chronicity (Primary Dx); Left knee pain, unspecified chronicity; Arthritis of left knee; Arthritis of right knee Start: 12-09-2024 End: 12-09-2024 ambulatory TORIE MCLAIN Not Available Start: 12-07-2024 End: 12-07-2024 ambulatory Jhoana Silveira PT Work Phone: [facility] Comment on above: Sciatica without sofi k pain, unspecified laterality (Primary Dx) Start: 12-05-2024 End: 12-05-2024 Office outpatient visit 15 minutes Kiet Pacheco DO Work Phone: [facility] Comment on above: Encounter for gyneco logical examination with abnormal finding (Primary Dx); Encounter for screening mammogram for malignant neoplasm of breast; Vaginal atrophy; Osteopenia of both hips; Osteoporosis screening; Asymptomatic menopause; Insomnia, unspecified type Start: 12-05-2024 End: 12-05-2024 Patient encounter status Kiet Leigh Visci DO Work Phone: [facility] Start: 12-05-2024 End: 12-05-2024 ambulatory KIET Leigh VISCI Not Available Start: 12-05-2024 End: 12-05-2024 ambulatory John Kelbley CUSTOMS CONSULTANT [facility] Comment on above: Sciatica without sofi k pain, unspecified laterality (Primary Dx) Start: 12-02-2024 End: 12-02-2024 Bamboo flowsheet John Kelbley CUSTOMS CONSULTANT [facility] Start: 12-02-2024 End: 12-02-2024 Bamboo flowsheet John Kelbley CUSTOMS CONSULTANT [facility] Start: 12-02-2024 End: 12-02-2024 ambulatory John Kelbley CUSTOMS CONSULTANT [facility] Comment on above: Sciatica without sofi k pain, unspecified laterality (Primary Dx) Start: 11-30-2024 End: 11-30-2024 Bamboo flowsheet Jhoana T Blackston PT Work Phone: [facility] Start: 11-30-2024 End: 11-30-2024 Bamboo flowsheet Jhoana T Blackston PT Work Phone: [facility] Start: 11-30-2024 End: 11-30-2024 ambulatory Jhoana Sae Blackston PT Work Phone: [facility] Comment on above: Sciatica without sofi k pain, unspecified laterality (Primary Dx) Start: 11-23-2024 End: 11-23-2024 ambulatory John Kelbley CUSTOMS CONSULTANT [facility] Comment on above: Sciatica without sofi k pain, unspecified laterality (Primary Dx) Start: 11-23-2024 End: 11-23-2024 Bamboo flowsheet John Kelbley CUSTOMS CONSULTANT [facility] Start: 11-23-2024 End: 11-23-2024 Bamboo flowsheet John Kelbley CUSTOMS CONSULTANT [facility] Start: 11-21-2024 End: 11-21-2024 Bamboo flowsheet Jhoana T Blackston PT Work Phone: [facility] Start: 11-21-2024 End: 11-21-2024 Bamboo flowsheet Jhoana Silveira PT Work Phone: [facility] Start: 11-21-2024 End: 11-21-2024 ambulatory Jhoana Silveira PT Work Phone: [facility] Comment on above: Sciatica without sofi k pain, unspecified laterality (Primary Dx) Start: 11-14-2024 End: 11-14-2024 Telephone encounter Jhoana Silveira PT Work Phone: [facility] Comment on above: PT Initial Eval; fu; Call Back Start: 11-01-2024 End: 11-01-2024 Bamboo flowsheet Tracee Womack PA Work Phone: [facility] Start: 11-01-2024 End: 11-01-2024 Bamboo flowsheet Tracee Womack PA Work Phone: [facility] Start: 11-01-2024 End: 11-01-2024 Office outpatient visit 15 minutes Tracee Womack PA Work Phone: [facility] Comment on above: Episodic lightheaded ness (Primary Dx) Start: 11-01-2024 End: 11-01-2024 ambulatory TRACEE WOMACK Not Available Start: 10-10-2024 End: 10-10-2024 Refill Jesús Tripathi MD Work Phone: [facility] Comment on above: Polyosteoarthritis, unspecified Start: 08-01-2024 End: 08-01-2024 Refsruthi Tripathi MD Work Phone: [facility] Comment on above: Polyosteoarthritis, unspecified Start: 06-20-2024 End: 06-20-2024 Bamboo flowsheet Binta Gannon MESS ATTENDANT Work Phone: [facility] Start: 06-20-2024 End: 06-20-2024 Bamboo flowsheet Binta Gannon MESS ATTENDANT Work Phone: [facility] Start: 06-20-2024 End: 06-20-2024 Office outpatient visit 15 minutes Binta Gannon MESS ATTENDANT Work Phone: [facility] Comment on above: Right knee pain, uns pecified chronicity (Primary Dx); Left knee pain, unspecified chronicity; Arthritis of left knee; Arthritis of right knee Start: 06-20-2024 End: 06-20-2024 ambulatory BINTA Hopkins APLING Not Available Start: 06-13-2024 End: 06-13-2024 Bamboo flowsheet Binta Gannon MESS ATTENDANT Work Phone: [facility] Start: 06-13-2024 End: 06-13-2024 Bamboo flowsheet Binta Gannon MESS ATTENDANT Work Phone: [facility] Start: 06-13-2024 End: 06-13-2024 Office outpatient new 45 minutes Binta Gannon MESS ATTENDANT Work Phone: [facility] Comment on above: Right knee pain, uns pecified chronicity (Primary Dx); Left knee pain, unspecified chronicity; Primary osteoarthritis of both knees; Arthritis of left knee; Arthritis of right knee Start: 06-13-2024 End: 06-13-2024 ambulatory BINTA Hopkins APLING Not Available Start: 2024 End: 2024 Orders Only Jesús Tripathi MD Work Phone: [facility] Comment on above: Hyperlipidemia, unsp ecified hyperlipidemia type (CMS/HCC) Start: 06-06-2024 End: 06-06-2024 Bamboo flowsheet Jesús Tripathi MD Work Phone: [facility] Start: 06-06-2024 End: 06-06-2024 Bamboo flowsheet Jesús Tripathi MD Work Phone: [facility] Start: 06-06-2024 End: 06-06-2024 Assay of hemosiderin, quant Jesús Tripathi MD Work Phone: [facility] Start: 06-06-2024 End: 06-06-2024 Patient encounter procedure Jesús Tripathi MD Work Phone: [facility] Comment on above: Routine general medi jurgen examination at health care facility (Primary Dx); Primary hypertension ([facility]/HCC); Age-related osteoporosis without current pathological fracture (CMS/HCC); Osteoarthritis of spine with radiculopathy, lumbar region; Generalized osteoarthritis; Mixed hyperlipidemia (CMS/HCC); Primary osteoarthritis of both knees Start: 06-06-2024 End: 06-06-2024 ambulatory JESÚS TRIPATHI Not Available Start: 05-25-2024 End: 05-25-2024 Refill Jesús Tripathi MD Work Phone: [facility] Comment on above: Polyosteoarthritis, unspecified Start: 04-04-2024 End: 04-04-2024 Office outpatient visit 15 minutes Jesús Tripathi MD Work Phone: [facility] Comment on above: Left lumbar radiculi tis (Primary Dx); Encounter for screening mammogram for malignant neoplasm of breast; Osteoarthritis of spine with radiculopathy, lumbar region Start: 04-04-2024 End: 04-04-2024 ambulatory JESÚS TRIPATHI Not Available Start: 04-04-2024 End: 04-04-2024 Bamboo flowsheet Jesús Tripathi MD Work Phone: [facility] Start: 04-04-2024 End: 04-04-2024 Bamboo flowsheet Jesús Tripathi MD Work Phone: [facility] Start: 03-17-2024 End: 03-17-2024 Bamboo flowsheet Jesús Tripathi MD Work Phone: [facility] Start: 03-17-2024 End: 03-17-2024 Bamboo flowsmarshall Tripathi MD Work Phone: [facility] Start: 03-17-2024 End: 03-17-2024 ambulatory JESÚS TRIPATHI Not Available Start: 03-17-2024 End: 03-17-2024 Office outpatient visit 15 minutes Jesús Tripathi MD Work Phone: [facility] Comment on above: Left lumbar radiculi tis (Primary Dx) Start: 03-02-2024 End: 03-02-2024 Refill Jesús Tripathi MD Work Phone: [facility] Comment on above: Polyosteoarthritis, unspecified Start: 05-26-2016 End: 05-27-[address] JESÚS TRIPATHI Facility:[facility] Procedures Date Procedure Procedure Detail Performing Clinician Start: 02-07-2025 Dual energy X-ray absorptiometry Jesús Deuce II Work Phone: Start: 02-07-2025 Screening mammograph y of bilateral breasts Jesús Deuce II Work Phone: Start: 12-09-2024 Arthrocentesis aspir &/inj major jt/bursa w/o us Torie FOX Work Phone: Start: 12-09-2024 Arthrocentesis aspir &/inj major jt/bursa w/o us Torie FOX Work Phone: Start: 06-20-2024 Arthrocentesis aspir &/inj major jt/bursa w/o us Binta Gannon MESS ATTENDANT Work Phone: Start: 06-13-2024 Arthrocentesis aspir &/inj major jt/bursa w/o us Binta Hopkins Aplbárbara MESS ATTENDANT Work Phone: Start: 06-13-2024 Radiologic examinati on knee 1/2 views Binta Gannon MESS ATTENDANT Work Phone: Start: 06-06-2024 Hemoglobin glycosylated a1c Jesús Tripathi MD Work Phone: Plan of Treatment Date Care Activity Detail Author Start: 01-30-2026 Medicare Annual Well ness (AWV) Medicare Annual Wellness (AWV) [facility] Start: 12-18-2025 End: 12-18-2025 Patient encounter procedure [facility] Start: 06-06-2025 Medicare Annual Well ness (AWV) Medicare Annual Wellness (AWV) [facility] Start: 03-06-2025 Influenza vaccination Influenza Vacc ine (#1) [facility] Start: 01-30-2025 End: 01-30-2026 US.doppler Carotid arteries - bilateral Vascular US carotid artery duplex bilateral Imaging Routine Carotid bruit, unspecified laterality Expected: 01/30/2025, Expires: 01/30/2026 [facility] Work Phone: Comment on above: Expected: 01/30/2025 , Expires: 01/30/2026 Start: 01-30-2025 End: 01-30-2025 Patient encounter procedure [facility] Comment on above: Arrived Start: 12-30-2024 End: 12-30-2024 ambulatory 12/30/2024 9:30 AM EDT Treatment [facility] [address] [facility] [address] [place] [address] John Mosley, CUSTOMS CONSULTANT [facility] Start: 12-28-2024 End: 12-28-2024 ambulatory [facility] Comment on above: Arrived Start: 12-26-2024 End: 12-26-2024 ambulatory [facility] Comment on above: Arrived Start: 12-21-2024 End: 12-21-2024 ambulatory 12/21/2024 11:00 AM EDT Treatment [facility] [address] [facility] [address] [place] [address] John Mosley, CUSTOMS CONSULTANT [facility] Start: 12-19-2024 End: 12-19-2024 ambulatory [facility] Comment on above: Arrived Start: 12-14-2024 End: 12-14-2024 ambulatory 12/14/2024 10:00 AM EDT Treatment [facility] [address] [facility] [address] [place] [address] John Mosley, CUSTOMS CONSULTANT [facility] Start: 12-12-2024 End: 12-12-2024 ambulatory [facility] Comment on above: Arrived Start: 12-09-2024 End: 12-09-2024 Patient encounter procedure [facility] Comment on above: Right knee pain, uns pecified chronicity (Primary Dx); Left knee pain, unspecified chronicity; Arthritis of left knee; Arthritis of right knee Start: 12-07-2024 End: 12-07-2024 ambulatory 12/07/2024 9:30 AM EDT Treatment [facility] [address] [facility] [address] [place] [address] Jhoana Silveira, PT [address] [facility] [address] [place] [address] [facility] Start: 12-05-2024 End: 12-05-2024 Patient encounter procedure [facility] Comment on above: Encounter for gyneco logical examination with abnormal finding; Encounter for screening mammogram for malignant neoplasm of breast; Vaginal atrophy; Osteopenia of both hips Start: 12-05-2024 End: 02-04-2026 DBT Breast - bilateral screening Bilateral screening mammogram with tomosynthesis Imaging Routine Encounter for screening mammogram for malignant neoplasm of breast Expected: 12/05/2024, Expires: 02/04/2026 [facility] Work Phone: Comment on above: Expected: 12/05/2024 , Expires: 02/04/2026 Start: 12-05-2024 End: 12-05-2025 DXA Skeletal system Views for bone density DEXA bone density Imaging Routine Osteopenia of both hips Osteoporosis screening Asymptomatic menopause Expected: 12/05/2024, Expires: 12/05/2025 [facility] Comment on above: Expected: 12/05/2024 , Expires: 12/05/2025 Start: 12-05-2024 End: 12-05-2024 ambulatory 12/05/2024 10:30 AM EDT Treatment [facility] [address] [facility] [address] [place] [address] John Mosley, CUSTOMS CONSULTANT [facility] Start: 12-02-2024 End: 12-02-2024 ambulatory 12/02/2024 9:30 AM EDT Treatment [facility] [address] [facility] [address] [place] [address] John Mosley, CUSTOMS CONSULTANT [facility] Start: 11-30-2024 End: 11-30-2024 ambulatory [facility] Comment on above: Arrived Start: 11-23-2024 End: 11-23-2024 ambulatory 11/23/2024 3:00 PM EDT Treatment [facility] [address] [place] [address] [place] [address] John Mosley PTA [facility] Start: 11-21-2024 End: 11-21-2024 ambulatory [facility] Comment on above: Sciatica without sofi k pain, unspecified laterality Start: 11-01-2024 End: 11-01-2024 Patient encounter procedure 11/01/2024 1:30 PM EDT Office Visit [facility] [address] [place] [address] [place] [address] Tracee Womack PA [address] [place] [address] [place] [address] Arrived [facility] Comment on above: Arrived Start: 06-20-2024 End: 06-20-2024 Patient encounter procedure [facility] Comment on above: Right knee pain, uns pecified chronicity (Primary Dx); Left knee pain, unspecified chronicity; Arthritis of left knee; Arthritis of right knee Start: 06-13-2024 End: 06-13-2024 Patient encounter procedure 06/13/2024 9:30 AM EST Office Visit [facility] [address] [place] [address] [place] [address] Binta Gannon, MESS ATTENDANT [address] [place] [address] [place] [address] Right knee pain, unspecified chronicity (Primary Dx); Left knee pain, unspecified chronicity; Primary osteoarthritis of both knees [facility] Comment on above: Right knee pain, uns pecified chronicity (Primary Dx); Left knee pain, unspecified chronicity; Primary osteoarthritis of both knees Start: 06-06-2024 End: 06-06-2025 Comprehensive metabolic 2000 panel - Serum or Plasma Comprehensive metabolic panel Lab Routine Primary hypertension (CMS/HCC) Osteoarthritis of spine with radiculopathy, lumbar region Expected: 06/06/2024 (Approximate), Expires: 06/06/2025 [facility] Comment on above: Expected: 06/06/2024 (Approximate), Expires: 06/06/2025 Start: 06-06-2024 End: 06-06-2025 Lipid 1996 panel - Serum or Plasma Lipid panel Lab Routine Mixed hyperlipidemia (CMS/HCC) Expected: 06/06/2024 (Approximate), Expires: 06/06/2025 [facility] Comment on above: Expected: 06/06/2024 (Approximate), Expires: 06/06/2025 Start: 06-06-2024 End: 06-06-2025 TSH W/REFLEX TO FT4 TSH W/REFLEX TO FT4 Lab Routine Primary hypertension (CMS/HCC) Mixed hyperlipidemia (CMS/HCC) Expected: 06/06/2024 (Approximate), Expires: 06/06/2025 [facility] Comment on above: Expected: 06/06/2024 (Approximate), Expires: 06/06/2025 Start: 06-06-2024 End: 06-06-2024 Patient encounter procedure [facility] Comment on above: Arrived Start: 05-27-2024 Medicare Annual Well ness (AWV) Medicare Annual Wellness (AWV) [facility] Start: 04-04-2024 End: 04-04-2024 Patient encounter procedure 04/04/2024 2:45 PM EDT Office Visit [facility] [address] [facility] [address] [place] [id number] Jesús Tripathi MD [address] [facility] [address] [place] [address] Encounter for screening mammogram for malignant neoplasm of breast; Left lumbar radiculitis [facility] Comment on above: Encounter for screen ing mammogram for malignant neoplasm of breast; Left lumbar radiculitis Start: 03-17-2024 End: 03-17-2025 XR Lumbar spine 2 or 3 Views XR lumbar spine 2 or 3 views Imaging Routine Left lumbar radiculitis Expected: 03/17/2024, Expires: 03/17/2025 [facility] Work Phone: Comment on above: Expected: 03/17/2024 , Expires: 03/17/2025 Start: 03-17-2024 End: 03-17-2024 Patient encounter procedure 03/17/2024 11:15 AM EDT Office Visit [facility] [address] [facility] [address] [place] [address] Jesús Tripathi MD [address] [facility] [address] [place] [address] Arrived [facility] Comment on above: Arrived Start: 03-06-2024 Influenza vaccination Influenza Vacc ine (#1) [facility] CBC W Auto Different ial panel - Blood CBC and differential Lab Routine Primary hypertension (CMS/HCC) Osteoarthritis of spine with radiculopathy, lumbar region Ordered: 06/06/2024 [facility] Work Phone: Comment on above: Ordered: 06/06/2024 Immunizations Immunization Date Immunization Notes Care Provider Fa cility 07-13-2024 ABRYSVO - Respirator y syncytial virus (RSV), vaccine, bivalent, protein subunit RSV prefusion F, diluent reconstituted, 0.5 mL, PF Tracee FOX Work Phone: [facility] 05-18-2024 influenza, high dose seasonal, preservative-free Tracee Womack PA Work Phone: [facility] Work Phone: 05-18-2024 influenza virus vacc ine, unspecified formulation Jesús Tripathi MD Work Phone: [facility] 04-19-2023 SARS-COV-2 (COVID-19 ) vaccine, mRNA, spike protein, LNP, PF, alvaro-sucrose, 30 mcg/0.3 mL Jesús Tripathi MD Work Phone: [facility] 04-15-2023 influenza, seasonal, injectable Jesús Tripathi MD Work Phone: [facility] 04-15-2023 influenza virus vacc ine, unspecified formulation Jesús Tripathi MD Work Phone: [facility] 05-06-2022 influenza, high dose seasonal, preservative-free Jesús Tripathi MD Work Phone: [facility] 04-25-2022 Moderna Bivalent Simms ster Vaccination Jesús Tripathi MD Work Phone: [facility] 05-22-2021 pneumococcal conjuga te vaccine, 13 esthela Tripathi MD Work Phone: [facility] 05-06-2021 influenza, high dose seasonal, preservative-free Jesús Tripathi MD Work Phone: [facility] 01-10-2020 zoster vaccine recombinant Jesús Tripathi MD Work Phone: [facility] 09-12-2019 pneumococcal polysaccharide vaccine, 23 valchristiano Tripathi MD Work Phone: [facility] 03-06-2019 influenza, seasonal, injectable, preservative free Jesús Tripathi MD Work Phone: [facility] 04-11-2015 zoster vaccine, live Jesús Tripathi MD Work Phone: [facility] 03-17-2014 zoster vaccine, live Jesús Tripathi MD Work Phone: [facility] Payers Date Payer Category Payer Self-pay 2023 [employer] ( and others) [id number] 2022 [employer] ( and others) [facility] [id number] 2022-Present [facility] [address] [place] [address] [id number] 2022 ([facility]) [id number] 2022 [employer] ( and others) [id number] 2021 Medicaid [employer] MEDICARE A DVANTAGE [id number] 2021 Medicare AETNA MEDICARE A DVANTAGE AETNA MEDICARE REPLACEMENT [id number] 2021-Present [address] [place] [id number] 2021 Medicare [id number] 1959 Department of [facility] ( and others) [id number] 1959 Medicare [id number] 1945 Unknown [id number] 2.16.840.1.308639.3.579.2 .593 1945 Unknown [id number] 2.16.840.1.662528.3.579.2 .1259 1945 Unknown [id number] 2.16.840.1.863949.3.579.2 .1259 1945 Unknown [id number] 2.16.840.1.540484.3.579.2 .1259 1945 Unknown [id number] 2.16.840.1.343737.3.579.2 .1259 1945 Unknown [id number] 2.16.840.1.029449.3.579.2 .1259 1945 Unknown [id number] 2.16.840.1.648272.3.579.2 .1259 1945 Unknown [id number] 2.16.840.1.183481.3.579.2 .1259 1945 Unknown [id number] 2.16.840.1.048631.3.579.2 .1259 1945 Unknown [id number] 2.16.840.1.282490.3.579.2 .1259 1945 Unknown [id number] 2.16.840.1.178657.3.579.2 .1259 1945 Unknown [id number] 2.16.840.1.178043.3.579.2 .1259 1945 Unknown [id number] 2.16.840.1.311995.3.579.2 .1259 1945 Unknown [id number] 2.16.840.1.359624.3.579.2 .1259 1945 Unknown [id number] 2.16.840.1.967609.3.579.2 .1259 1945 Unknown [id number] 2.16.840.1.086456.3.579.2 .1259 1945 Unknown [id number] 2.16.840.1.240650.3.579.2 .1259 1945 Unknown [id number] 2.16.840.1.187969.3.579.2 .1259 1945 Unknown [id number] 2.16.840.1.146116.3.579.2 .1259 1945 Unknown [id number] 2.16.840.1.951559.3.579.2 .1259 1945 Unknown [id number] 2.16.840.1.271973.3.579.2 .1259 1945 Unknown [id number] 2.16.840.1.672994.3.579.2 .1259 1945 Unknown [id number] 2.16.840.1.560685.3.579.2 .1259 1945 Unknown [id number] 2.16.840.1.741138.3.579.2 .1259 Unknown [id number] 2.16.840.1.398374.3.579.2 .531 Social History Date Type Detail Facility Start: 05-25-2023 End: 12-07-2023 Tobacco smoking status NHIS Never smoked tobacco [facility] Start: 05-25-2023 Tobacco use and exposure Smokeless tobacco non-user [facility] Start: 04-04-2024 End: 01-30-2025 Alcoholic beverage intake Current drinker of alcohol (finding) [facility] Start: 11-26-2023 End: 01-23-2025 [facility] of Social function [facility] Start: 11-26-2023 End: 01-23-2025 Alcohol Use Disorder Identification Test - Consumption [AUDIT-C] [facility] How often to you hav e a drink containing alcohol? 4 or more times a week [facility] How many standard dr inks containing alcohol do you have on a typical day? 1 or 2 [facility] How often do you hav e 6 or more drinks on 1 occasion? Never [facility] Start: 1945 Sex assigned at Female [facility] Start: 05-20-2023 Gender identity Identifies as female gender (finding) [facility] Within the last year , have you been afraid of your partner or ex-partner? No [facility] Are you now , , , , never or living with a partner? [facility] How hard is it for y ou to pay for the very basics like food, housing, medical care, and heating Not hard at all [facility] Do you feel stress - tense, restless, nervous, or anxious, or unable to sleep at night because your mind is troubled all the time - these days [OSQ] Only a little [facility] (I/We) worried wheth er (my/our) food would run out before (I/we) got money to buy more. Never true [facility] Sex Female (finding) [facility] Functional Status Date Assessment Result Facility 11-01-2024 Patient Health Quest ionnaire 2 item (PHQ-2) [Reported] [facility] Clinical Notes 03-17-2024 to 01-30-2025 Jesús Tripathi MD - 01/30/2025 9:30 AM EDTTelephone Encounter - Stella Chun - 12/15/2024 9:18 AM EDTTelephone Encounter - Stella Chun - 12/15/2024 9:18 AM EDT Note Date & Type Note Facility 01-30-2025 History of Presen t illness Narrative Images from the original note were not [...] and manage most of your health problems?: (Patient-Rptd) (P) Very confident Can you mange your money, [...] Do you have a medical power of edge sawyer?: (Patient-Rptd) (P) No Objective : BP 128/80 Pulse 89 Ht 5' 4.25 LMP (LMP Unknown) SpO2 96% BMI 25.55 kg/m No results found. Physical Exam Constitutional: Appearance: [...] - The patient is seeing a medical care administrator for this condition, treatment is deferred to that specialist. Correspondence from that specialist and any available testing were reviewed during today's visit. Generalized osteoarthritis - This is a chronic medical condition that is stable since last assessment. No changes in treatment are suggested at this time. Osteoarthritis of spine with radiculopathy, lumbar region - Pain controlled on Ambien. Age-related osteoporosis without current pathological fracture - BMD is scheduled. Mixed hyperlipidemia - Labs from last June were discussed. No orders of the defined types were placed in this encounter. Electronically signed by Jesús Tripathi MD on January 30, 2025 documented in this encounter [facility] 12-15-2024 Telephone encount er Note Pt scheduled [facility] 12-15-2024 Miscellaneous Notes Formattin g of this note might be different from the original. Pt scheduled Patient is due for an appointment at the end of January. Please help her get scheduled for routine controlled medication follow up appointment. OARRS reviewed, Rx sent into patient's pharmacy. documented in this encounter [facility] 12-14-2024 Telephone encount er Note Patient is due for an appointment at the end of January. Please help her get scheduled for routine controlled medication follow up appointment. OARRS reviewed, Rx sent into patient's pharmacy. [facility] 12-09-2024 History of Presen t illness Narrative Associated Order(s): L Inj/Asp: L knee; L Inj/Asp: R knee Post-Procedure Diagnose(s): Arthritis of left knee; Arthritis of right knee Images from the original note were not included. Orthopedic Office note: NAME: Alena Tapia : 1945 EST PT WITH PROSPER WITH FLARE UP B/L KNEE PAIN- NKI XRAY B/L KNEE 06/13/24 EPIC LT KNEE CORTISONE INJ 06/13/24 HX LT PATELLA FX RT knee: Pain medial knee, only with WB or exercising. Taking TYL arthritis prn. Has stiffness. Denies topicals. Denies N/T. + Swelling Denies popping/grinding. Occasional feeling of giving out, but does not actually give out, typically when she goes downstairs. Does not wake at HS. LT knee: EST PT WITH PROSPER- RECHECK RT KNEE- S/P RT KNEE CORTISONE INJ 06/20/24 XRAY 06/13/24 CORTISONE INJ 06/20/24 Pain anterior, states it can be diffuse. Denies radiation. Taking TYL arthritis prn. Denies topicals. Denies N/T, swelling. Denies popping/grinding. Denies giving out. Does not wake at HS. Patient is having PT for her sciatica on her left side, she feels as this is helping her left knee more. TX: ES TYL without relief, xrays noms 06/13/24, voltaren gel without relief Knee Musculoskeletal Exam Gait Antalgic: right and left Inspection Leg length disparity: no discrepancy Right Erythema: none Effusion: moderate Edema: none Ecchymosis: none Deformity: none Left Erythema: none Effusion: mild Edema: none Ecchymosis: none Deformity: none Palpation Right Right knee palpation is unremarkable. Increased warmth: none Masses: none Crepitus: patellofemoral and medial Tenderness: present Medial joint line: moderate Patella: mild Left Left knee palpation is unremarkable. Increased warmth: none Masses: none Crepitus: patellofemoral and medial Tenderness: present Medial joint line: moderate Patella: mild Range of Motion Right Right knee range of motion is normal and full. Active extension: 5 Passive extension: 5 Active flexion: 115 Passive flexion: 120 Left Left knee range of motion is normal and full. Active extension: 5 Passive extension: 5 Active flexion: 115 Passive flexion: 120 Strength Right Right knee strength is normal. Extension: 5/5. Extension is affected by pain. Flexion: 5/5. Flexion is affected by pain. Left Left knee strength is normal. Extension: 5/5. Flexion: 5/5. Instability Right Instability signs: none - stable Anterior drawer: normal Left Instability signs: none - stable Anterior drawer: normal Neurovascular Right Right knee neurovascular exam is normal. Pulses - PT: normal Posterior tibial: 2+ Capillary refill: warm and well-perfused Left Left knee neurovascular exam is normal. Pulses - PT: normal Posterior tibial: 2+ Capillary refill: warm and well-perfused Special Signs Right Right knee special signs are normal. Patellar apprehension: none Left Left knee special signs are normal. General Constitutional: appears stated age Labored breathing: no Psychiatric: normal mood and affect Neurological: alert Skin: intact Lymphadenopathy: none Orders Placed This Encounter Procedures L Inj/Asp: L knee This order was created via procedure documentation L Inj/Asp: R knee This order was created via procedure documentation L Inj/Asp: L knee on 12/09/2024 11:00 [...] and draped in the usual sterile fashion. L Inj/Asp: R knee on 12/09/2024 11:02 [...] and draped in the usual sterile fashion. Results ICD-10-CM 1. Right knee pain, unspecified chronicity M25.561 2. Left knee pain, unspecified chronicity M25.562 3. Arthritis of left knee M17.12 L Inj/Asp: L knee 4. Arthritis of right knee M17.11 L Inj/Asp: R knee Assessment & Plan Bilateral knee pain, right greater than left. The right knee exhibits a more pronounced effusion. She experiences pain during ambulation. Previous cortisone injections have provided relief. She is cognizant of the medial joint line and patellofemoral arthritis present in both knees. She will persist with conservative measures. If these do not provide sufficient relief, surgical intervention will be considered. She expressed gratitude for the time spent at her bedside and verbally consented to receive bilateral knee injections. Treatment plan: Continue with conservative measures. Bilateral knee injections. Clinical decision making: If conservative measures do not provide sufficient relief, surgical intervention will be considered. Questions answered in laymen terms at the bedside. The diagnosis, home exercise plan and any ongoing restrictions/ recommendations reviewed. If unable to be reached in office, I recommend evaluation at nearest Emergency Room if any symptoms worsened or new symptoms develop for requiring urgent evaluation. Visit was preformed using [employer]-jet pilot speech recognition. documented in this encounter [facility] 12-07-2024 History of Presen t illness Narrative Images from the original note were not included. Physical Therapy Treatment Visit Patient Name: Linda Tapia Today's Date: 12/07/2024 Encounter Diagnoses Name Primary? Sciatica without back pain, unspecified laterality Yes Visit number: 6 Timed Code Treatment: 25 minutes Total Treatment Time: 50 minutes Time In: 09:30 AM Time Out: 10:20 AM History: Pt. Presents to PT with c/c of left sciatica which started 3 weeks ago. No HUNTER. Pt. Has left sciatica in the fall of last year but after a couple weeks her pain went away. Some N/T down left leg when sitting for long periods of time. Increased pain with static standing. Some difficulty sleeping at night. Precautions: universal Subjective: reports of severe right knee pain. Will having injection this Thursday with ortho. Pain: R knee 5/10, LB L hip 2/10 Objective: PT Evaluation (11/21/24) Lumbar ROM: grossly WFL in all planes Flexibility: moderate piriformis and hamstring muscle tightness Joint: hypomobility in lumbar spine L4/5 segment Strength: core 4-/5, lateral hip 4/5, knee 5/5 Gait: antalgic gait due to increased knee pain from increased back pain Treatment: Manual Therapy: (25 minutes) Delivered manual ther Pt prone: PA mobs, MFR to lumbar spine, sacral distractions to improve mobility and decrease pain Therapeutic Exercise: (0 minutes supervised ) Guided pt through ther and flex ex per exercises grid to improve core lumbar functional Strength, Endurance, Flexibility, ROM, HEP, Neural Mobilization, Power, and Core Stability Therapeutic Activity: Exercises to improve dynamic activities, functional tasks, functional mobility to return to prior activity level Neuromuscular re-education: Balance Training, Muscle Facilitation, Dynamic Stability, Core Stabilization, and Blood Flow Restriction Training (BFRT) Modalities: (15 minutes) Post session pt prone ice, Electrical Stimulation to lower lumbar spine to reduce inflammation and muscle soreness Assessment: Pt has participated in 6 PT session with start of POC on 11/21/24 for left sciatic. Pt reports less LB pain, R knee 4/10, (getting knee injection on Thursday). Performing HEP as instructed, icing heat and Tylenol for pain. Continued with manual ther, ther ex focusing on gentle stretching. No increased pain reported at end of session. Ended session with IFC to right knee. Will benefit from skilled PT services. Outcome Measure: in chart Short Term Goal: To be met in 2 weeks Goal 1: Pt to be instructed in home exercise program. Pharmaceutical Plant Operator Goals: To be met in 10 weeks Goal 1: Pt to report independence and compliance with home program. Goal 2: Pt. Will report of 0/10 left sciatica to help improve her quality of life. Goal 3: Pt. Will demonstrate normal left LE muscle flexibility to help decrease her pain and improve her functional mobility. Goal 4: Pt. Will demonstrate normal lumbar paraspinal muscle flexibility to help decrease pain and improve her functional mobility. Goal 5: Pt. Will demonstrate 5/5 core/hip strength to help decrease pain and improve her functional mobility. Pt will benefit from skilled PT for 1-3x/week from 11/21/24 to 01/30/25 to address the above impairments. I hereby deem this POC medically necessary. Please sign below. Date: documented in this encounter [facility] 12-05-2024 History of Presen t illness Narrative Images from the original note were not included. Kiet Pacheco, Obstetrics and Gynecology Alena Tapia 1945 12/05/24 [id number] Yearly Wellness Exam Chief Complaint Patient presents with Gynecologic Exam Pt presents for yearly. Denies breast,bowel,bladder,genetics physician problems. Visit Vitals BP 140/76 Wt 150 lb LMP (LMP Unknown) BMI 25.55 kg/m OB Status Postmenopausal Smoking Status Never BSA 1.76 m History of Present Illness Current Outpatient Medications Medication Sig Dispense Refill [...] needed at bedtime for sleep 30 tablet 0 No current facility-administered medications for this visit. No Known Allergies Past Medical History: Diagnosis Date Atrophic vaginitis 04/30/2023 Basal cell carcinoma (BCC) of left shoulder 04/30/2023 Generalized osteoarthritis 04/30/2023 Hyperlipidemia (CMS/HCC) 04/30/2023 Hypertension (CMS/HCC) 04/30/2023 Insomnia 04/30/2023 Osteoarthritis of lumbar spine 04/30/2023 Osteoporosis ([facility] 04/30/2023 Other allergic rhinitis 04/30/2023 Patella fracture 06/14/2013 Rotator cuff syndrome ? Sacroiliitis ([facility]) 04/30/2023 Tear of meniscus of knee Past Surgical History: Procedure Laterality Date COLONOSCOPY 2014 ROTATOR CUFF REPAIR TONSILLECTOMY OB History Para Term AB Living 1 0 SAB IAB Ectopic Multiple Live Births 1 # Outcome Date GA Lbr Dinesh/2nd Weight Sex Type Anes PTL Lv 1 Vag-Spont DEC Obstetric Comments Pap 11/09/14- Neg (No more paps d/t age and hx) Mammogram 09/01/23 - Neg [place] Dexa 06/24/22 normal spine, hips osteopenia. Colonoscopy 2014- normal ROS General: Denies fevers/chills Eyes: Denies vision changes ENT: Denies neck stiffness, neck mass Endocrine: Denies polydipsia and polyuria Respiratory: Denies shortness of breath Cardiovascular: Denies chest pain and palpitations Gastrointestinal: Denies changes in bowel habits, blood in stool, constipation and diarrhea. Hematology: Denies easy bruising. Women Only: Denies breast masses, skin changes, nipple discharge, abnormal bleeding, pelvic pain and dyspareunia Genitourinary: Denies dysuria, pelvic pain and nocturia Skin: Denies rashes/lesions Neurologic: Denies headaches, dizziness, syncope Psychiatric: Denies hallucinations, suicidal ideas EXAM GENERAL EXAMINATION: Alert, oriented, well developed, well nourished. HEAD: Normocephalic, atraumatic. EYES: SAVAGE, sclera anicteric. EARS: No obvious hearing deficit. NECK/THYROID: Neck supple no cervical lymphadenopathy no thyromegaly. LYMPH NODES: No axillary, supraclavicular or inguinal adenopathy. SKIN: Warm and dry. No rashes HEART: Regular rate and rhythm. No murmur LUNGS: Clear to auscultation bilaterally. CHEST: Axillary nodes grossly normal. BREASTS: No dominant masses palpable bilaterally, no skin changes, nipple discharge, supra-clavicular or axillary adenopathy ABDOMEN: Soft, nontender, nondistended, no hernia or masses palpable. BACK: No obvious scoliosis/kyphosis. FEMALE GENITOURINARY: Method Consultant in room-EFG without sores/lesions, moderate atrophic vaginal mucosa-no discharge, cervix without lesions, uterus AV, small, no adnexal masses, cul-de-sac negative. EXTREMITIES No edema. NEUROLOGIC: Alert and oriented. PSYCH: Cooperative with exam. ICD-10-CM 1. Encounter for gynecological examination with abnormal finding Z01.411 2. Encounter for screening mammogram for malignant neoplasm of breast Z12.31 Bilateral screening mammogram with tomosynthesis 3. Vaginal atrophy N95.2 4. Osteopenia of both hips M85.851 DEXA bone density M85.852 5. Osteoporosis screening Z13.820 DEXA bone density 6. Asymptomatic menopause Z78.0 DEXA bone density Advised pt to perform monthly self breast exams. Encouraged calcium and Vitamin D intake. Mammogram due, order sent. Reviewed Dexa- normal spine, hips osteopenia. Plan to repeat with mammogram. Uses Ambien as needed, due for refill. Last colonoscopy completed 2014- normal. She would like to hold off on repeating for now. She will return in 1 year for annual exam. Entered by Yumiko Santos LPN acting as scribe for Dr. Kiet Pacheco. Signature: Yumiko Santos LPN The documentation recorded by the scribe accurately reflects the service(s) I personally performed and the decisions I made. Signature: Kiet Pacheco DO Assessment & Plan documented in this encounter [facility] 11-30-2024 History of Presen t illness Narrative Images from the original note were not included. Physical Therapy Treatment Visit Patient Name: Linda Tapia Today's Date: 11/30/2024 Encounter Diagnoses Name Primary? Sciatica without back pain, unspecified laterality Yes Visit number: 3 Timed Code Treatment: 38 minutes Total Treatment Time: 53 minutes Time In: 2:30 PM Time Out: 3:30 PM History: Pt. Presents to PT with c/c of left sciatica which started 3 weeks ago. No HUNTER. Pt. Has left sciatica in the fall of last year but after a couple weeks her pain went away. Some N/T down left leg when sitting for long periods of time. Increased pain with static standing. Some difficulty sleeping at night. Precautions: universal Subjective Continues to report LB pain with radicular pain in to L LE / hip. Increased right knee pain today. Pain: 2/10 dull today ; worst 7/10 climbing up stairs/mowing lawn Objective: PT Evaluation (11/21/24) Lumbar ROM: grossly WFL in all planes Flexibility: moderate piriformis and hamstring muscle tightness Joint: hypomobility in lumbar spine L4/5 segment Strength: core 4-/5, lateral hip 4/5, knee 5/5 Gait: antalgic gait due to increased knee pain from increased back pain Treatment: Manual Therapy: (15 minutes) Delivered manual ther Pt prone: PA mobs, MFR to lumbar spine, sacral distractions to improve mobility and decrease pain Therapeutic Exercise: (23 minutes supervised) Guided pt through ther and flex ex per exercises grid to improve core lumbar functional Strength, Endurance, Flexibility, ROM, HEP, Neural Mobilization, Power, and Core Stability Therapeutic Activity: Exercises to improve dynamic activities, functional tasks, functional mobility to return to prior activity level Neuromuscular re-education: Balance Training, Muscle Facilitation, Dynamic Stability, Core Stabilization, and Blood Flow Restriction Training (BFRT) Modalities: (15 minutes) post session pt prone ice, Electrical Stimulation to lower lumbar spine to reduce inflammation and muscle soreness Assessment: Pt has participated in 3 PT session with start of POC on 11/21/24 for left sciatic. Pt reports no change in LB pain. Performing HEP as instructed, icing heat and Tylenol for pain. Continued with manual ther, ther ex focusing on gentle stretching. No increased pain reported at end of session. Trial of IFC/ CP Will benefit from skilled PT services. Outcome Measure: in chart Short Term Goal: To be met in 2 weeks Goal 1: Pt to be instructed in home exercise program. Penitentiary Goals: To be met in 10 weeks Goal 1: Pt to report independence and compliance with home program. Goal 2: Pt. Will report of 0/10 left sciatica to help improve her quality of life. Goal 3: Pt. Will demonstrate normal left LE muscle flexibility to help decrease her pain and improve her functional mobility. Goal 4: Pt. Will demonstrate normal lumbar paraspinal muscle flexibility to help decrease pain and improve her functional mobility. Goal 5: Pt. Will demonstrate 5/5 core/hip strength to help decrease pain and improve her functional mobility. Pt will benefit from skilled PT for 1-3x/week from 11/21/24 to 01/30/25 to address the above impairments. I hereby deem this POC medically necessary. Please sign below. Date: documented in this encounter [facility] 11-14-2024 Telephone encount er Note She called back and we scheduled her Eval 11/21 @ 2:00 w/ Jhoana Silveira PT. [facility] 11-14-2024 Miscellaneous Notes Formattin g of this note might be different from the original. She called back and we scheduled her Eval 11/21 @ 2:00 w/ Jhoana Silveira PT. documented in this encounter [facility] 11-01-2024 History of Presen t illness Narrative Images from the original note were not included. Subjective Patient ID: Linda Tapia is a 79 y.o. female who presents for dizziness. Linda is present today for evaluation of dizziness. Admits it started on Thursday and has just been getting worse. Describes it as lightheadedness, happens if she gets up too fast or at night if she gets up in the middle of the night. Feels like she is off balance. Took a cane when she walked her dog. Drinks about a bottle and a half of water a day. Drinks a cup of coffee in the morning and a glass of wine at night. Especially bad if she gets up during the night to use the restroom, has to hang on to something. Doesn't eat much for meals. Breakfast can be a piece of toast or a few cookies. Lunch can be a hard boiled egg. Dinner is usually a little macaroni and cheese with some turkey sausage or prepared lasagna, occasionally a salad, or spaghetti and meatballs. Does not take the Ambien every night, takes it 2-3 times a week. It upsets her stomach when she takes it. Takes Aleve PM or Unisom, occasionally together. Recently lost a friend of hers and so it made pt nervous when she started having lightheadedness. Current Outpatient Medications on File Prior to Visit Medication Sig Dispense Refill latanoprost (Xalatan) 0.005 % ophthalmic solution Administer 1 drop into both eyes at bedtime omeprazole (PriLOSEC) [address] capsule Take 1 capsule (40 mg) by mouth in the morning. Take before meals. Do not crush or chew.. 30 capsule 0 rosuvastatin (Crestor) 20 MG tablet Take 1 tablet (20 mg) by mouth in the morning. 90 tablet 3 traMADol (Ultram) 50 MG tablet Take 1 tablet (50 mg) by mouth every 6 (six) hours if needed for severe pain 120 tablet 0 zolpidem (Ambien) 10 MG tablet Take 1 tablet (10 mg) by mouth as needed at bedtime for sleep 30 tablet 0 No current facility-administered medications on file prior to visit. I have reviewed and reconciled the history and medication list with the patient today. No Known Allergies Social History Tobacco Use Smoking status: Never Smokeless tobacco: Never Vaping Use Vaping status: Never Used Substance Use Topics Alcohol use: Yes Drug use: Never No family history on file. Past Medical History: Diagnosis Date Atrophic vaginitis 04/30/2023 Basal cell carcinoma (BCC) of left shoulder 04/30/2023 Generalized osteoarthritis 04/30/2023 Hyperlipidemia (CMS/HCC) 04/30/2023 Hypertension (CMS/HCC) 04/30/2023 Insomnia 04/30/2023 Osteoarthritis of lumbar spine 04/30/2023 Osteoporosis ([facility]/HCC) 04/30/2023 Other allergic rhinitis 04/30/2023 Sacroiliitis ([facility]/HCC) 04/30/2023 Past Surgical History: Procedure Laterality Date COLONOSCOPY 2014 ROTATOR CUFF REPAIR TONSILLECTOMY Visit Vitals BP 138/82 Comment: sitting to standing 138/82 Pulse 91 Resp 16 Ht 5' 4.25 Wt 150 lb 12.8 oz LMP (LMP Unknown) SpO2 95% BMI 25.68 kg/m OB Status Postmenopausal Smoking Status Never BSA 1.76 m Review of Systems Constitutional: Negative for chills, fatigue and fever. Respiratory: Negative for cough, shortness of breath and wheezing. Cardiovascular: Negative for chest pain, palpitations and leg swelling. Gastrointestinal: Negative for abdominal pain, constipation, diarrhea, nausea and vomiting. Musculoskeletal: Positive for gait problem (Feeling off balance). Skin: Negative for rash. Neurological: Positive for light-headedness. Objective Physical Exam Constitutional: General: She is not in acute distress. Appearance: Normal appearance. She is well-developed. HENT: Head: Normocephalic and atraumatic. Right Ear: Hearing, tympanic membrane and ear canal normal. Left Ear: Hearing, tympanic membrane and ear canal normal. Mouth/Throat: Mouth: Mucous membranes are moist. Pharynx: Uvula midline. Eyes: General: No scleral icterus. Extraocular Movements: Extraocular movements intact. Conjunctiva/sclera: Conjunctivae normal. Pupils: Pupils are equal, round, and reactive to light. Cardiovascular: Rate and Rhythm: Normal rate and regular rhythm. Heart sounds: Normal heart sounds. No murmur heard. Pulmonary: Effort: Pulmonary effort is normal. No respiratory distress. Breath sounds: Normal breath sounds. No wheezing, rhonchi or rales. Musculoskeletal: General: Normal range of motion. Right lower leg: No edema. Left lower leg: No edema. Skin: General: Skin is warm and dry. Neurological: General: No focal deficit present. Mental Status: She is alert and oriented to person, place, and time. Cranial Nerves: Cranial nerves 2-12 are intact. No facial asymmetry. Sensory: Sensation is intact. Motor: Motor function is intact. No weakness or pronator drift. Coordination: Romberg sign negative. Psltee-Fbct-Ebrgug Test normal. Gait: Gait is intact. Psychiatric: Mood and Affect: Mood normal. Behavior: Behavior normal. Comments: Became tearful when discussing the loss of one of her friends recently. Assessment/Plan Diagnoses and all orders for this visit: Episodic lightheadedness Linda reports decreased water intake (approximately 1.5 bottles a day) and insufficient caloric intake. She has lost 4 pounds since her last appointment. Most likely cause for lightheadedness is dehydration. Pt is advised to increase water and food intake daily. Reassurance given that she is neurologically intact on exam today. No concerning findings. Advised her that if she increases her oral intake of food and water and continues to have symptoms, or symptoms worsen, she is to return to the office for re-evaluation. Imaging could be ordered for further evaluation if needed. No follow-ups on file. documented in this encounter [facility] 06-20-2024 History of Presen t illness Narrative Associated Order(s): L Inj/Asp: R knee Post-Procedure Diagnose(s): Arthritis of right knee Images from the original note were not included. Subjective Patient ID: Linda Tapia is a [address] Tripathi referral. 1 week s/p LT knee depo injection 06/13/24 with 90% improvement B/L knee pain, ~ 4 weeks. NKI. LT>RT. She notes when it got cold her knees started to flare up. Denies recent injury Hx LT knee patella fx 11 years ago, tx by Dr Cartagena, no surgery. LT knee: Pain medial knee, only with WB or exercising. Taking TYL arthritis prn. Stiffness has improved some. Denies topicals. Denies N/T, swelling. Denies popping/grinding. Denies giving out. Does not wake at HS. Prior tx: XR NOMS 06/13/24, TYL prn, voltaren gel prn without much relief, depo injection 06/13/24 RT knee: Denies injury. Pain anterior, states it can be diffuse. Denies radiation. Taking TYL arthritis prn. Denies topicals. Denies N/T, swelling. Denies popping/grinding. Denies giving out. Does not wake at HS. TX: ES TYL without relief, xrays noms 06/13/24, voltaren gel without relief Objective Ortho Exam Knee Musculoskeletal Exam Gait Limp: right Inspection Right Erythema: none Effusion: none Edema: none Ecchymosis: none Palpation Right Crepitus: patellofemoral Tenderness: none Range of Motion Right Active extension: 0 Active flexion: 115 Strength Right Extension: 4+/5. Flexion: 4+/5. L Inj/Asp: R knee on 06/20/2024 12:15 PM Indications: pain Details: 20 G needle, anterolateral approach Medications: 40 mg methylPREDNISolone acetate 40 MG/ML UTILIZING ASEPTIC TECHNIQUE PT GIVEN INJECTION IN RIGHT KNEE, NEUROVASC INTACT S/P INJ, TOLERATED WELL Procedure, treatment alternatives, risks and benefits explained, specific risks discussed. Consent was given by the patient. Assessment/Plan Encounter Diagnoses: ICD-10-CM 1. Right knee pain, unspecified chronicity M25.561 2. Left knee pain, unspecified chronicity M25.562 3. Arthritis of left knee M17.12 4. Arthritis of right knee M17.11 Discussion of options, pt notes she would like an injection, side effects of bleeding and infection discussed, would like to proceed with the injection, using aspectic technique 40 mg of depo medrol was injected into the right lateral knee, pt tolerated well, bandaid applied, may do activities as tolerated, f/u prn, she is pleased with her outcome on the left and will call if needed documented in this encounter [facility] 06-13-2024 History of Presen t illness Narrative Associated Order(s): L Inj/Asp: L knee Post-Procedure Diagnose(s): Arthritis of left knee Images from the original note were not included. Subjective Patient ID: Linda Tapia is a [address] Tripathi referral. B/L knee pain, ~ 3 weeks. NKI. LT>RT. She notes when it got cold her knees started to flare up. Denies recent injury Hx LT knee patella fx 11 years ago, tx by Dr Cartagena, no surgery. LT knee: Pain anterior knee, can also be lateral. States more stiffness than pain. Taking TYL arthritis prn. Using voltaren prn, not much relief. Denies N/T, swelling. Occas grinding, mostly with bending. Does not wake at HS. Prior tx: XR NOMS 06/13/24, TYL prn, voltaren gel prn without much relief RT knee: Pain anterior, mostly stiffness. Denies injury. Taking TYL arthritis prn. Using voltaren prn. Denies N/T, swelling. Occas grinding with bending. Does not wake at HS. TX: ES TYL without relief, xrays noms 06/13/24, voltaren gel without relief Objective Right Knee Exam Tests Natali: Medial - negative Lateral - negative Left Knee Exam Tests Natali: Medial - negative Lateral - negative Knee Musculoskeletal Exam Gait Limp: right Inspection Right Erythema: none Effusion: none Edema: none Ecchymosis: none Left Erythema: none Effusion: none Edema: none Ecchymosis: none Palpation Right Crepitus: patellofemoral Tenderness: none Left Crepitus: patellofemoral Tenderness: none Range of Motion Right Active extension: 0 Active flexion: 115 Left Active extension: 0 Active flexion: 115 Strength Right Extension: 4+/5. Flexion: 4+/5. Left Extension: 4+/5. Flexion: 4+/5. Instability Right Medial Natali test: negative Lateral Natali test: negative Left Medial Natali test: negative Lateral Natali test: negative Neurovascular Right Posterior tibial: 2+ L Inj/Asp: L knee on 06/13/2024 9:54 AM Indications: pain Details: 20 G needle, anterolateral approach Medications: 40 mg methylPREDNISolone acetate 40 MG/ML Procedure, treatment alternatives, risks and benefits explained, specific risks discussed. Consent was given by the patient. XR knee 1 or 2 views right Imaging Result: X-rays AP and lateral of right knee showed severe varus deformity with [id number] articulation to the medial joint line. There is flattening of the articular surfaces medially to the tibia plateau and femoral condyle. There is marginal osteophytic formation and subchondral sclerosis noted medially and the patellofemoral joint. There is no evidence of fracture or dislocation. Bony structures viewed showed appropriate ossification. XR knee 1 or 2 views left Imaging Result: AP and lateral views of left knee showed severe varus deformity with [id number] articulation to the medial joint line, flattening of the articular surfaces to the medial joint line lateral joint line and patellofemoral joint. Subchondral sclerosis was noted at the medial joint line surfaces as well as the lateral joint line and patellofemoral joint. Marginal osteophytic formation was noted tricompartmentally. There is no evidence of fracture or dislocation. Impression: severe degenerative joint disease left knee with varus deformity Assessment/Plan Encounter Diagnoses: ICD-10-CM 1. Right knee pain, unspecified chronicity M25.561 XR knee 1 or 2 views right 2. Left knee pain, unspecified chronicity M25.562 XR knee 1 or 2 views left 3. Primary osteoarthritis of both knees M17.0 Ambulatory referral to Orthopaedic Surgery 4. Arthritis of left knee M17.12 L Inj/Asp: L knee 5. Arthritis of right knee M17.11 Discussion of options, pt notes she would like an injection, side effects of bleeding and infection discussed, would like to proceed with the injection, using aspectic technique 40 mg of depo medrol was injected into the left lateral knee, pt tolerated well, bandaid applied, may do activities as tolerated, f/u in 1 week for possible right knee injection documented in this encounter [facility] 06-06-2024 History of Presen t illness Narrative Images from the original note were not included. Subjective : Chief Complaint: Alena Tapia is an 78 y.o. female here for an annual wellness visit. I have reviewed and reconciled the history and medication list with the patient today. Current Outpatient Medications Medication Sig Dispense Refill latanoprost (Xalatan) 0.005 % ophthalmic solution Administer 1 drop into both eyes at bedtime rosuvastatin (Crestor) 10 MG tablet TAKE 1 TABLET IN THE MORNING 100 tablet 3 traMADol (Ultram) 50 MG tablet Take 1 tablet (50 mg) by mouth every 6 (six) hours if needed for severe pain 120 tablet 0 omeprazole (PriLOSEC) [address] capsule Take 1 capsule (40 mg) by mouth in the morning. Take before meals. Do not crush or chew.. 30 capsule 0 zolpidem (Ambien) 10 MG tablet Take 1 tablet (10 mg) by mouth as needed at bedtime for sleep 30 tablet 0 No current facility-administered medications for this visit. Review of Systems List of current healthcare providers: Patient Care Team: Jesús Tripathi MD as PCP - General (Internal Medicine) Jesús Tripathi MD as PCP - [employer] Annual Visit Over the past 2 weeks, how often have you been bothered by any of the following problems? Little interest or pleasure in doing things: Not at all Feeling down, depressed, or hopeless: Not at all Patient Health Questionnaire-2 Score: 0 Over the past 2 weeks, how often have you been bothered by any of the following problems? Trouble falling or staying asleep, or sleeping too much: Not at all Feeling tired or having little energy: Not at all Poor appetite or overeating: Not at all Feeling bad about yourself - or that you are a failure or have let yourself or your family down: Not at all Trouble concentrating on things, such as reading the newspaper or watching television: Not at all Moving or speaking so slowly that other people could have noticed? Or the opposite - being so fidgety or restless that you have been moving around a lot more than usual.: Not at all Thoughts that you would be better off or hurting yourself in some way: Not at all Patient Health Questionnaire-9 Score: 0 Sal Fall Risk History of Falling, Immediate or Within 3 Months: No Health Risk Assessment Form Do you need help eating, bathing, using the toilet, dressing, or getting around your home?: No Can you prepare your own meals?: Yes Can you do your own housework without help?: Yes Can you shop for groceries or clothes without help?: Yes Do you exercise for about 20 minutes 3 or more days a week?: Yes How confident are you that you can control and manage most of your health problems?: Very confident Can you mange your money, credit cards and accounts, pay bills and taxes?: Yes Cognitive Screening Three Word Registration: Banana, Lannon, Chair Clock Drawing: Normal Clock - 2 Three Word Recall: All 3 words correct - 3 Total Score (0-5 Points): 5 Pain Assessment Pain Score: 6 Advance Care Planning Do you have a living will?: No Do you have a medical power of edge sawyer?: No Objective : BP 135/90 Pulse 74 Resp 17 Wt 154 lb 3.2 oz LMP (LMP Unknown) SpO2 97% BMI 26.26 kg/m No results found. Physical Exam Constitutional: General: She is not in acute distress. Appearance: Normal appearance. She is well-developed. HENT: Head: Normocephalic and atraumatic. Eyes: General: No scleral icterus. Conjunctiva/sclera: Conjunctivae normal. Cardiovascular: Rate and Rhythm: Normal rate and regular rhythm. Heart sounds: Normal heart sounds. No murmur heard. Pulmonary: Effort: Pulmonary effort is normal. No respiratory distress. Breath sounds: Normal breath sounds. No wheezing, rhonchi or rales. Musculoskeletal: Right knee: No swelling or effusion. No LCL laxity, MCL laxity, ACL laxity or PCL laxity. Normal alignment. Left knee: No swelling or effusion. LCL laxity and MCL laxity present. No ACL laxity or PCL laxity.Normal alignment. Skin: General: Skin is warm and dry. Neurological: General: No focal deficit present. Mental Status: She is alert and oriented to person, place, and time. Psychiatric: Mood and Affect: Mood normal. Behavior: Behavior normal. Assessment/Plan : The following health maintenance schedule was reviewed with the patient and provided in printed form in the after visit summary: Health Maintenance Topic Date Due Medicare Annual Wellness (AWV) 05/27/2024 Influenza Vaccine Completed Pneumococcal Vaccine: 65+ Years Completed Advance Care Planning Assessment/Plan Diagnoses and all orders for this visit: Routine general medical examination at health care facility - POCT glycosylated hemoglobin (Hb A1C) docked device Primary hypertension (CMS/HCC) - CBC and differential - Comprehensive metabolic panel; Future - TSH W/REFLEX TO FT4; Future Age-related osteoporosis without current pathological fracture (CMS/HCC) Osteoarthritis of spine with radiculopathy, lumbar region - CBC and differential - Comprehensive metabolic panel; Future Generalized osteoarthritis Mixed hyperlipidemia (CMS/HCC) - Lipid panel; Future - TSH W/REFLEX TO FT4; Future Primary osteoarthritis of both knees - Ambulatory referral to Orthopaedic Surgery; Future No follow-ups on file. No orders of the defined types were placed in this encounter. Electronically signed by Jesús Tripathi MD on June 06, 2024 documented in this encounter [facility] 05-25-2024 Telephone encount er Note OARRS reviewed, Rx sent into patient's pharmacy. [facility] 05-25-2024 Miscellaneous Notes Formattin g of this note might be different from the original. OARRS reviewed, Rx sent into patient's pharmacy. documented in this encounter [facility] 04-04-2024 History of Presen t illness Narrative Images from the original note were not included. HPI Results Additional comments: xray Last edited by Nicole Larson LPN on 04/04/2024 2:40 PM. Subjective Patient ID: Linda Tapia is a 78 y.o. female who presents for LBP/ leg pain and Results (xray). Pt has had pain in left posterior leg radiates behind knee to left lower leg for the last 5 weeks Pain worse with certain movements. Denies inciting event Improvement in symptoms with OTC chiro plus topical, and ibuprofen at bedtime Completed xray as ordered Leg Pain Current Outpatient Medications on File Prior to Visit Medication Sig Dispense Refill ibuprofen 800 MG tablet Take 1 tablet (800 mg) by mouth in the morning and 1 tablet (800 mg) in the evening and 1 tablet (800 mg) before bedtime. 90 tablet 0 latanoprost (Xalatan) 0.005 % ophthalmic solution Administer 1 drop into both eyes at bedtime omeprazole (PriLOSEC) [address] capsule Take 1 capsule (40 mg) by mouth in the morning. Take before meals. Do not crush or chew.. 30 capsule 0 rosuvastatin (Crestor) 10 MG tablet Take 1 tablet (10 mg) by mouth in the morning. 100 tablet 3 traMADol (Ultram) 50 MG tablet Take 1 tablet (50 mg) by mouth every 6 (six) hours if needed for severe pain 240 tablet 0 zolpidem (Ambien) 10 MG tablet Take 1 tablet (10 mg) by mouth as needed at bedtime for sleep 30 tablet 0 No current facility-administered medications on file prior to visit. I have reviewed and reconciled the history and medication list with the patient today. No Known Allergies Social History Tobacco Use Smoking status: Never Smokeless tobacco: Never Vaping Use Vaping status: Never Used Substance Use Topics Alcohol use: Yes Drug use: Never No family history on file. Past Medical History: Diagnosis Date Atrophic vaginitis 04/30/2023 Basal cell carcinoma (BCC) of left shoulder 04/30/2023 Generalized osteoarthritis 04/30/2023 Hyperlipidemia (CMS/HCC) 04/30/2023 Hypertension (CMS/HCC) 04/30/2023 Insomnia 04/30/2023 Osteoarthritis of lumbar spine 04/30/2023 Osteoporosis (CMS/HCC) 04/30/2023 Other allergic rhinitis 04/30/2023 Sacroiliitis (CMS/HCC) 04/30/2023 Past Surgical History: Procedure Laterality Date COLONOSCOPY 2014 ROTATOR CUFF REPAIR TONSILLECTOMY Visit Vitals BP 128/72 Pulse 71 Ht 5' 4.25 Wt 148 lb LMP (LMP Unknown) SpO2 98% BMI 25.21 kg/m OB Status Postmenopausal Smoking Status Never BSA 1.74 m Review of Systems Objective Physical Exam Musculoskeletal: Left knee: No swelling, deformity, effusion or erythema. No tenderness. MCL laxity present. No LCL laxity, ACL laxity or PCL laxity.Normal alignment and normal patellar mobility. Neurological: Motor: No weakness or atrophy. Deep Tendon Reflexes: Reflex Scores: Patellar reflexes are 2+ on the left side. Achilles reflexes are 2+ on the left side. Assessment/Plan Diagnoses and all orders for this visit: Left lumbar radiculitis - Improving with Ibuprofen 800 hs and topicals. Xrays discussed. Encounter for screening mammogram for malignant neoplasm of breast Osteoarthritis of spine with radiculopathy, lumbar region Follow up if symptoms worsen or fail to improve. documented in this encounter [facility] 03-17-2024 History of Presen t illness Narrative Images from the original note were not included. Subjective Patient ID: Linda Tapia is a 78 y.o. female who presents for Leg Pain. Pt has had pain in left posterior leg radiates behind knee to left lower leg Pain worse with certain movements. Denies inciting event No help with nay home treatments Leg Pain Current Outpatient Medications on File Prior to Visit Medication Sig Dispense Refill latanoprost (Xalatan) 0.005 % ophthalmic solution Administer 1 drop into both eyes at bedtime rosuvastatin (Crestor) 10 MG tablet Take 1 tablet (10 mg) by mouth in the morning. 100 tablet 3 traMADol (Ultram) 50 MG tablet Take 1 tablet (50 mg) by mouth every 6 (six) hours if needed for severe pain 240 tablet 0 zolpidem (Ambien) 10 MG tablet Take 1 tablet (10 mg) by mouth as needed at bedtime for sleep 30 tablet 0 No current facility-administered medications on file prior to visit. I have reviewed and reconciled the history and medication list with the patient today. No Known Allergies Social History Tobacco Use Smoking status: Never Smokeless tobacco: Never Vaping Use Vaping status: Never Used Substance Use Topics Alcohol use: Yes Drug use: Never No family history on file. Past Medical History: Diagnosis Date Atrophic vaginitis 04/30/2023 Basal cell carcinoma (BCC) of left shoulder 04/30/2023 Generalized osteoarthritis 04/30/2023 Hyperlipidemia ([facility]/HCC) 04/30/2023 Hypertension ([facility]) 04/30/2023 Insomnia 04/30/2023 Osteoarthritis of lumbar spine 04/30/2023 Osteoporosis ([facility]) 04/30/2023 Other allergic rhinitis 04/30/2023 Sacroiliitis ([facility]) 04/30/2023 Past Surgical History: Procedure Laterality Date COLONOSCOPY 2014 ROTATOR CUFF REPAIR TONSILLECTOMY Visit Vitals BP 128/74 Pulse 66 Temp 98.3 F Ht 5' 4.25 Wt 148 lb LMP (LMP Unknown) SpO2 100% BMI 25.21 kg/m OB Status Postmenopausal Smoking Status Never BSA 1.74 m Review of Systems Objective Physical Exam Musculoskeletal: Left knee: No swelling, deformity, effusion or erythema. No tenderness. MCL laxity present. No LCL laxity, ACL laxity or PCL laxity.Normal alignment and normal patellar mobility. Neurological: Motor: No weakness or atrophy. Deep Tendon Reflexes: Reflex Scores: Patellar reflexes are 2+ on the left side. Achilles reflexes are 2+ on the left side. Assessment/Plan Diagnoses and all orders for this visit: Left lumbar radiculitis - XR lumbar spine 2 or 3 views; Future Follow up in about 2 weeks (around 03/31/2024). documented in this encounter [facility] Diagnosis Polyosteoarthritis, unspecified documented [facility] this [facility]* Diagnosis Routine general medical examination at health care facility- Primary Routine general medical examination at a health care facility Primary hypertension (CMS/HCC) Unspecified essential hypertension Age-related osteoporosis without current pathological fracture (CMS/HCC) Osteoarthritis of spine with radiculopathy, lumbar region Generalized osteoarthritis Generalized osteoarthrosis, involving multiple sites Mixed hyperlipidemia (CMS/HCC) Mixed hyperlipidemia Primary osteoarthritis of both knees [facility]* Diagnosis Hyperlipidemia, unspecified hyperlipidemia type (CMS/HCC) documented [facility]* Diagnosis Left lumbar radiculitis- Primary documented in [facility]* Diagnosis Right knee pain, unspecified chronicity- Primary Left knee pain, unspecified chronicity Primary osteoarthritis of both knees Arthritis of left knee Arthritis of right knee documented [facility]* Diagnosis Right knee pain, unspecified chronicity- Primary Left knee pain, unspecified chronicity Arthritis of left knee Arthritis of right knee documented [facility] this [facility]* Diagnosis Polyosteoarthritis, unspecified documented [facility]* Diagnosis Left lumbar radiculitis- Primary Encounter for screening mammogram for malignant neoplasm of breast Osteoarthritis of spine with radiculopathy, lumbar region documented in this [facility]* Diagnosis Polyosteoarthritis, unspecified documented [facility]* Diagnosis Episodic lightheadedness- Primary documented in this [facility]* Diagnosis Sciatica without back pain, unspecified laterality- Primary documented in this [facility]* Diagnosis Sciatica without back pain, unspecified laterality- Primary documented in [facility]* Diagnosis Sciatica without back pain, unspecified laterality- Primary Encounter for gynecological examination with abnormal finding Encounter for screening mammogram for malignant neoplasm of breast Vaginal atrophy Postmenopausal atrophic vaginitis Osteopenia of both hips documented [facility]* Diagnosis Sciatica without back pain, unspecified laterality- Primary Encounter for gynecological examination with abnormal finding Encounter for screening mammogram for malignant neoplasm of breast Vaginal atrophy Postmenopausal atrophic vaginitis Osteopenia of both hips documented [facility] this [facility]* Diagnosis Encounter for gynecological examination with abnormal finding Encounter for screening mammogram for malignant neoplasm of breast Vaginal atrophy Postmenopausal atrophic vaginitis Osteopenia of both hips Sciatica without back pain, unspecified laterality- Primary documented [facility]* Diagnosis Encounter for gynecological examination with abnormal finding- Primary Encounter for screening mammogram for malignant neoplasm of breast Vaginal atrophy Postmenopausal atrophic vaginitis Osteopenia of both hips Osteoporosis screening Special screening for osteoporosis Asymptomatic menopause Insomnia, unspecified type [facility]* Diagnosis Right knee pain, unspecified chronicity- Primary Left knee pain, unspecified chronicity Arthritis of left knee Arthritis of right knee documented in this [facility]* Diagnosis Polyosteoarthritis, unspecified documented [facility]* Diagnosis Sciatica without back pain, unspecified laterality- Primary documented in this [facility]* Diagnosis Sciatica without back pain, unspecified laterality- Primary documented in [facility]* Diagnosis Sciatica without back pain, unspecified laterality- Primary documented [facility]* Diagnosis Routine general medical examination at health [...] hyperlipidemia Mixed hyperlipidemia [facility] noteNo assessment information availableC[facility] Work Phone: Reason for referral (narrative)No reason for referral information availableC[facility] Work Phone: Reason for visit Narrative* Rehabilitation - Outpatient (Routine) - Authorized Specialty Diagnoses / Procedures Referred By Contac t Referred To Contact Physical Therapy Diagnoses Sciatica without back pain, unspecified laterality Procedures MO OFFICE/OUTPATIENT NEW HIGH [facility] 60 MINUTES Jesús Tripathi MD [address] [facility] [address] [place] [address] Phone: tel: fax: Jhoana Silveira, PT [address] [facility] [address] [place] [address] Phone: tel: fax: Referral ID Status Reason Start Date Expiration Date Visits Requested Visits Authorized [id number] Authorized Specialty Services Required 11/11/2024 05/10/2025 99 99 [facility] HealthcareReason for visit Narrative* Rehabilitation - Outpatient (Routine) - Authorized Specialty Diagnoses / Procedures Referred By Tianna alston Referred To Contact Physical Therapy Diagnoses Sciatica without back pain, unspecified laterality Procedures MO OFFICE/OUTPATIENT NEW HIGH [facility] 60 MINUTES Jesús Tripathi MD [address] [address] Phone: tel: fax: Jhoana Silveira, PT [address] [address] Phone: tel: fax: Referral ID Status Reason Start Date Expiration Date Visits Requested Visits Authorized [id number] Authorized Specialty Services Required 11/11/2024 07/05/2025 99 99 [facility] Healthcare Summary Purpose Family History No Family History Records Found Relationship Condition Age at Onset Recorded Date/T shana father Unknown family member Unknown mother Unknown Advance Directives No Advanced Directives Records Found Advance Directive Response Recorded Date/ Time Advance Directives No June 3:26pm Chief Complaint and Reason for Visit Chief Complaint Admit Date Z820 Z78.0 M85.851 M85.852 February 2:36pm Additional Source Comments INFORMATION SOURCE (unrecogn ized section and content) DATE CREATED AUTHOR 08/24/2021 [facility] DATE CREATED AUTHOR AUTHOR'S ORGANIZ ATION 06/09/2024 [facility] DATE CREATED AUTHOR AUTHOR'S ORGANIZ ATION 01/30/[address] [facility] EPIC DATE CREATED AUTHOR AUTHOR'S ORGANIZ ATION 02/15/2025 [facility] Reason for Visit (unrecogniz ed section and content) Reason Onset Date Comments Med Refill 05/25/2024 Reason Comments Leg Pain Reason Comments Pain Specialty Diagnoses / Procedures Referred By Contac t Referred To Contact Orthopaedic Surgery Diagnoses Primary osteoarthritis of both knees Jesús Tripathi MD [address] [facility] [address] [place] [address] Phone: tel: fax: Binta Gannon, MESS ATTENDANT [address] [facility] [address] [place] [address] Phone: tel: fax: Referral ID Status Reason Start Date Expiration Date V isits Requested Visits Authorized [id number] Closed Specialty Services Required 06/06/2024 12/03/2024 1 1 Reason Comments Follow-up Pain Reason Onset Date Comments Med Refill 03/02/2024 Reason Comments LBP/ leg pain Results xray Reason Onset Date Comments Med Refill 08/01/2024 Reason Onset Date Comments Med Refill 10/10/2024 Reason Onset Date Comments PT Initial Eval 11/11/2024 fu 11/14/2024 Call Back 11/14/2024 Reason Comments Gynecologic Exam Pt presents for year ly. Denies breast,bowel,bladder,genetics physician problems. Reason Comments Pain Reason Onset Date Comments Med Refill 12/14/2024 Reason Comments Medicare Annual Wellness Visit [facility] t Care Teams (unrecognized sec tion and content) Timber Faller Relationship Specialty Start Date End Date Jesús Tripathi MD [address] [facility] [address] [place] [address] PCP - [employer] 07/06/20 Jesús Tripathi MD [address] [facility] [address] [place] [address] PCP - General Internal Medicine 11/11/22 Timber Faller Relationship Specialty Start Date End Date Jesús Tripathi MD [address] [facility] [address] [place] [address] PCP - [employer] 07/06/20 Jesús Tripathi MD [address] [place] [address] PCP - General Internal Medicine 11/11/22 Timber Faller Relationship Specialty Start Date End Date Jesús Tripathi MD [address] [place] [address] PCP - [employer] 07/06/20 Jesús Tripathi MD [address] [place] [address] PCP - General Internal Medicine 11/11/22 Timber Faller Relationship Specialty Start Date End Date Jesús Tripathi MD [address] [place] [address] PCP - [employer] 07/06/20 Jesús Tripathi MD [address] [place] [address] PCP - General Internal Medicine 11/11/22 Timber Faller Relationship Specialty Start Date End Date Jesús Tripathi MD [address] [place] [address] PCP - [employer] 07/06/20 Jesús Tripathi MD [address] [place] [address] PCP - General Internal Medicine 11/11/22 Timber Faller Relationship Specialty Start Date End Date Jesús Tripathi MD [address] [place] [address] PCP - [employer] 07/06/20 Jesús Tripathi MD [address] [place] [address] PCP - General Internal Medicine 11/11/22 Timber Faller Relationship Specialty Start Date End Date Jesús Tripathi MD [address] [place] [address] PCP - [employer] 07/06/20 Jesús Tripathi MD [address] [place] [address] PCP - General Internal Medicine 11/11/22 Timber Faller Relationship Specialty Start Date End Date Jesús Tripathi MD [address] [place] [address] PCP - [employer] 07/06/20 Jesús Tripathi MD [address] [place] [address] PCP - General Internal Medicine 11/11/22 Timber Faller Relationship Specialty Start Date End Date Jesús Tripathi MD [address] [place] [address] PCP - [employer] 07/06/20 Jesús Tripathi MD [address] [place] [address] PCP - General Internal Medicine 11/11/22 Timber Faller Relationship Specialty Start Date End Date Jesús Tripathi MD [address] [place] [address] PCP - [employer] 07/06/20 Jesús Tripathi MD [address] [place] [address] PCP - General Internal Medicine 11/11/22 Timber Faller Relationship Specialty Start Date End Date Jesús Tripathi MD [address] [place] [address] PCP - [employer] 07/06/20 Jesús Tripathi MD [address] [place] [address] PCP - General Internal Medicine 11/11/22 Timber Faller Relationship Specialty Start Date End Date Jesús Tripathi MD [address] [place] [address] PCP - [employer] 07/06/20 Jesús Tripathi MD [address] [place] [address] PCP - General Internal Medicine 11/11/22 Timber Faller Relationship Specialty Start Date End Date Jesús Tripathi MD [address] [place] [address] PCP - [employer] 07/06/20 Jesús Tripathi MD [address] [place] [address] PCP - General Internal Medicine 11/11/22 Timber Faller Relationship Specialty Start Date End Date Jesús Tripathi MD [address] [place] [address] PCP - [employer] 07/06/20 Jesús Tripathi MD [address] [place] [address] PCP - General Internal Medicine 11/11/22 Timber Faller Relationship Specialty Start Date End Date Jesús Tripathi MD [address] [place] [address] PCP - [employer] 07/06/20 Jesús Tripathi MD [address] [place] [address] PCP - General Internal Medicine 11/11/22 Timber Faller Relationship Specialty Start Date End Date Jesús Tripathi MD [address] [place] [address] PCP - [employer] 07/06/20 Jesús Tripathi MD [address] [place] [address] PCP - General Internal Medicine 11/11/22 Timber Faller Relationship Specialty Start Date End Date Jesús Tripathi MD [address] [place] [address] PCP - [employer] 07/06/20 Jesús Tripathi MD [address] [place] [address] PCP - General Internal Medicine 11/11/22 Timber Faller Relationship Specialty Start Date End Date Jesús Tripathi MD [address] [place] [address] PCP - [employer] 07/06/20 Jesús Tripathi MD [address] [place] [address] PCP - General Internal Medicine 11/11/22 Timber Faller Relationship Specialty Start Date End Date Jesús Tripathi MD [address] [place] [address] PCP - [employer] 07/06/20 Jesús Tripathi MD [address] [place] [address] PCP - General Internal Medicine 11/11/22 Timber Faller Relationship Specialty Start Date End Date Jesús Tripathi MD [address] [place] [address] PCP - [employer] 07/06/20 Jesús Tripathi MD [address] [place] [address] PCP - General Internal Medicine 11/11/22 Timber Faller Relationship Specialty Start Date End Date Jesús Tripathi MD [address] [place] [address] PCP - [employer] 07/06/20 Jesús Tripathi MD [address] [place] [address] PCP - General Internal Medicine 11/11/22 Timber Faller Relationship Specialty Start Date End Date Jesús Tripathi MD [address] [place] [address] PCP - [employer] 07/06/20 Jesús Tripathi MD [address] [place] [address] PCP - General Internal Medicine 11/11/22 Timber Faller Relationship Specialty Start Date End Date Jesús Tripathi MD [address] [place] [address] PCP - [employer] 07/06/20 Jesús Tripathi MD [address] [facility] [address] [place] [address] PCP - General Internal Medicine 11/11/22 Team Status: Active Member Role Status Dates Jesús Tripathi II MD Primary Care Provider Active Team Status: Inactive Member Role Status Dates Jesús Tripathi II MD Primary Care Provider Active Start: February 07, 2025 End: February 07, 2025 Kiet Pacheco DO Attending Provider Active Sta rt: February 07, 2025 End: February 07, 2025 Goals (unrecognized section and content) Goals may be documented in a n alternate section FOR RECORDS PERTAINING TO PATIENTS WHO ARE OR HAVE BEEN ENROLLED IN A CHEMICAL DEPENDENCY/SUBSTANCEABUSE PROGRAM, SOME INFORMATION MAY BE OMITTED. This clinical summary was aggregated from multiple sources. Caution should be exercised in using it in the provision of clinical care. This summary normalizes information from multiple sources, and as a consequence, information in this document may materially change the coding, format and clinical context of patient data. In addition, data may be omitted in some cases. CLINICAL DECISIONS SHOULD BE BASED ON THE PRIMARY CLINICAL RECORDS. [employer] [facility]. provides no warranty or guarantee of the accuracy or completeness of information in this document.
--- NOTE | 2025-02-18 19:21 | ECG_ITS ---
[facility] Test Date: 2025-02-18 Pat Name: WALTER ROACH Department: Room: - Gender: Female [employer] Guide: : 1945 Requested By: [id number] Order Number: [id number] Reading MD: MARY GOMEZ M.D. Measurements Intervals [place] Rate: 69 P: 75 NM: 146 QRS: 76 QRSD: 94 T: 63 QT: 384 QTc: 404 Interpretive Statements 1100 Sinus rhythm 3434 Septal myocardial infarction, age undetermined [address] depression 4564 Twave abnormality, possible lateral ischemia 9150 abnormal ECG No previous ECG available for comparison Electronically Signed On 02-19-2025 8:36:37 EDT by MARY GOMEZ M.D.
--- NOTE | 2025-02-18 19:22 | ED.GENADUL1 ---
Documented by User: Trixie Hua 02/18/25 22:52 HPI HPI - General Adult General Chief complaint: Recheck/Abnormal Lab/Rx Stated complaint: HYPERTESION Time Seen by Provider: 02/18/25 19:18 Source: patient Mode of arrival: walk-in History of Present Illness HPI narrative: 79 year old female presents to the ED for HTN. States she has been checking her BP at home the past 1-2 days due to feeling lightheaded. Her BP was 180s systolic at home. She does not take BP medication. Reports a mild JOHNSON. Denies fever, chills, vision changes, dizziness. Denies CP, SOB, cough. Denies N/V/D. Denies recent illness. Pt reports her only medication is Crestor. Related Data Home Medications ?Medication ?Instructions ?Recorded ?Confirmed rosuvastatin 20 mg tablet 20 mg PO DAILY 02/18/25 02/19/25 zolpidem 10 mg tablet 10 mg PO HS PRN sleep 02/18/25 02/19/25 Allergies Allergy/AdvReac Type Severity Reaction Status Date / Time hydralazine AdvReac Severe SVT Verified 02/18/25 22:16 Opioid HPI Opioid Management Most Recent Opioid Data: Last Pain Assessment Today, 01:00 Last ORT Total Score 0 Today, 00:16 Last ORT Risk Category Low Risk Today, 00:16 Review of Systems ROS Constitutional Denies: fever or chills Eyes Denies: change in vision Ears, nose, mouth, and throat Denies: throat pain Cardiovascular Reports: lightheadedness; Denies: chest pain, palpitations or edema Respiratory Denies: shortness of breath Gastrointestinal Denies: abdominal pain, nausea or vomiting Musculoskeletal Denies: back pain or neck pain Neurological Reports: headache; Denies: numbness in extremities, weakness in extremities, lack of coordination or dizziness PFSH [facility] Medical History (Updated 02/19/25 @ 01:02 by Manolo Hawkins RN) Hyperlipidemia ?E78.5 - Hyperlipidemia, unspecified (ICD-10) Social History (Updated 02/19/25 @ 01:05 by Manolo Hawkins RN) Within the past year, how often did you have a drink containing alcohol: 4 or more times a week Within the past year, how many standard drinks containing alcohol did you have on a typical day: 1 or 2 Within the past year, how often did you have six or more drinks on one occasion: never Total score: 0 Score interpretation: Questions 2 and 3 are 0. It can be assumed that the patient's drinking is below the recommended limits. However, please confirm the accuracy of the patient's alcohol intake over the last few months. 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 Known occupational exposures/hazards: No Highest level of school completed/degree received: Bachelor's degree Are you now , , , , never or living with a partner: In a typical week, how many times do you talk on the telephone with family, friends, or neighbors: once per week How often do you get together with friends or relatives: once per week Do you belong to any clubs or organizations such as sabianist groups unions, [employer] or athletic groups, or school groups: no Little interest or pleasure in doing things: not at all Feeling down, depressed, or hopeless: not at all Feel stressed/tense/nervous/anxious/difficulty sleeping: not at all Gender Identity: female Exam Constitutional Vital Signs, click to edit/add: Last Vital Signs Temp 98.1 F 02/19/25 04:00 Pulse 79 02/19/25 04:00 Resp 16 02/19/25 04:00 BP 159/80 H 02/19/25 04:00 Pulse Ox 95 02/19/25 04:00 O2 Del Method Room Air 02/19/25 04:00 Common normals: no apparent distress and oriented x3 General appearance: cooperative HENMT Common normals: moist oral mucous membranes Eye Common normals: PERRL, EOMs intact bilaterally, conjunctivae normal and no scleral icterus Neck & C-Spine Common normals: supple Chest Chest: symmetrical chest wall rise Respiratory Common normals: normal respiratory effort and clear to auscultation bilaterally Effort & inspection: able to speak in complete sentences and symmetric chest movement Cardio Common normals: regular rate and regular rhythm Neuro Common normals: oriented x3, CN's II-XII intact bilaterally, moves all extremities and no focal motor deficits Sensorium/orientation: awake and alert Speech: speech normal Gait (neuro): normal gait Course Vital Signs Vital signs: Vital Signs Temperature 98.2 F 02/18/25 18:35 Pulse Rate 76 02/18/25 18:35 Respiratory Rate 18 02/18/25 18:35 Blood Pressure 170/88 H 02/18/25 18:35 Pulse Oximetry 99 02/18/25 18:35 Oxygen Delivery Method Room Air 02/18/25 18:35 Temperature 98.1 F 02/19/25 04:00 Pulse Rate 79 02/19/25 04:00 Respiratory Rate 16 02/19/25 04:00 Blood Pressure 159/80 H 02/19/25 04:00 Pulse Oximetry 95 02/19/25 04:00 Oxygen Delivery Method Room Air 02/19/25 04:00 Medical Decision Making MDM Narrative Medical decision making narrative: The patient presented for elevated blood pressure. She reported she was feeling lightheaded today and decided to check her BP at home. She reported a mild JOHNSON. EKG showed sinus rhythm upon arrival with t-wave abnormalities. There was no previous EKG available for comparison. She was given hydralazine here for her blood pressure. She developed chest pressure after being given the hydralazine. Her face was also flushed. At approximately 2100 the patient developed SVT. Her HR was in the 180s. She reported her chest pressure was increased and her heart was racing. The patient was given adenosine 6 mg IV at the direction of Dr. Morataya; ED attending was at bedside. Her HR decreased to 90-100. Her BP improved and her chest pressure lessened. Troponin was negative x2. CT head was negative for acute findings. Chest x-ray and CT scan of the chest were pending. Care was resumed to Dr. Morataya. See his dictation for further evaluation and treatment. Medical Records Medical records reviewed: Yes I reviewed the patient's medical records Lab Data Lab results reviewed: Yes I reviewed the patient's lab results Labs: Lab Results 02/18/25 02/18/25 02/18/25 Range/Units 19:35 19:36 21:26 WBC 6.5 (4.0-11.0) 10^3/uL RBC 4.10 L (4.20-5.40) 10^6/uL Hgb 12.9 (12.0-16.0) g/dL Hct 38.5 (36.0-48.0) % MCV 93.9 (81.0-99.0) fL MCH 31.5 (26.7-34.0) pg MCHC 33.5 (29.9-35.2) g/dL RDW 12.3 (11.0-15.0) % Plt Count 292 (150-450) 10^3/uL MPV 9.6 (9.5-13.5) fL Neut % (Auto) 65.6 (43.0-75.0) % Lymph % (Auto) 23.4 (20.5-60.0) % [place] % (Auto) 9.1 (1.7-12.0) % Eos % (Auto) 1.4 (0.9-7.0) % Baso % (Auto) 0.3 (0.2-2.0) % Neut # (Auto) 4.3 (1.4-6.5) 10^3/uL Lymph # (Auto) 1.5 (1.2-3.8) 10^3/uL [place] # (Auto) 0.6 (0.3-0.8) 10^3/uL Eos # (Auto) 0.1 (0.0-0.7) 10^3/uL Baso # (Auto) 0.0 (0.0-0.1) 10^3/uL Abs Immat Gran (auto) 0.01 (0.00-0.03) 10^3/uL Imm/Tot Granulo (auto) 0.2 (0.0-0.5) % Sodium 140 (136-145) mmol/L Potassium 3.6 (3.5-5.1) mmol/L Chloride 107 (98-107) mmol/L Carbon Dioxide 29.4 (21.0-32.0) mmol/L Anion Gap 7.2 BUN 14.0 (7.0-18.0) mg/dL Creatinine 0.71 (0.55-1.02) mg/dL Est GFR ( Amer) >60 (>=60 mL/min/1.73m^2) Est GFR (Non-Af Amer) >60 (>=60 mL/min/1.73m^2) BUN/Creatinine Ratio 19.7 Glucose 119 H (74-106) mg/dL Calcium 9.2 (8.5-10.1) mg/dL Magnesium 1.8 (1.8-2.4) mg/dL Total Bilirubin 0.4 (0.2-1.0) mg/dL AST 17 (15-37) U/L ALT 22 (14-59) U/L Alkaline Phosphatase 92 (46-116) U/L Troponin I High Sens 6.0 6.9 (4.0-51.3) pg/mL Total Protein 7.2 (6.4-8.2) g/dL Albumin 3.8 (3.4-5.0) g/dL Globulin 3.4 g/dL Albumin/Globulin Ratio 1.1 TSH 1.617 (0.358-3.740) uIU/mL Urine Color Lt. yellow (YELLOW) Urine Clarity Clear (CLEAR) Urine pH 5.5 (5.0-9.0) Ur Specific [place] <=1.005 A (1.005-1.025) Urine Protein Negative (NEG/TRACE) mg/dL Urine Glucose (UA) Negative (NEGATIVE) mg/dL Urine Ketones Negative (NEGATIVE) mg/dL Urine Occult Blood Negative (NEGATIVE) Urine Nitrite Negative (NEGATIVE) Urine Bilirubin Negative (NEGATIVE) Urine Urobilinogen 1.0 (0.2-1.0) EU/dL Ur Leukocyte Esterase Trace A (NEGATIVE) Urine RBC None seen (0-2) #/HPF Urine WBC 2-5 A (NONE SEEN) #/HPF Ur Squamous Epith Cells Rare (NONE/RARE) #/LPF Urine Crystals None seen (None Seen) #/HPF Urine Bacteria Trace A (NONE SEEN) #/HPF Urine Casts Seen A (NONE SEEN) #/LPF Hyaline Casts Rare Urine Mucus None seen (NONE SEEN) Ur Culture Indicated? No Imaging Data Chest x-ray, CT head, CT chest with contrast: Radiologist's impression: CT scan head: No acute intracranial process. ECG Data Attestation: ?I have reviewed the pertinent ECG results. (EKG was reviewed by the attending physician. It showed sinus rhythm at a rate of 69. No STEMI. No previous EKG was available for comparison.) Interpretation: Measurements Intervals [place] Rate: 69 P: 75 HI: 146 QRS: 76 QRSD: 94 T: 63 QT: 384 QTc: 404 Interpretive Statements 1100 Sinus rhythm 3434 Septal myocardial infarction, age undetermined [address] depression 4564 Twave abnormality, possible lateral ischemia 9150 abnormal ECG No previous ECG available for comparison Discharge Plan Discharge Chief Complaint: Recheck/Abnormal Lab/Rx Clinical Impression: Hypertension, SVT (supraventricular tachycardia) Patient Disposition: Admitted as Observation Discharge Date/Time: 02/18/25 23:44 Documented by User: Hernan Morataya MD 02/19/25 04:32 HPI HPI - General Adult General Chief complaint: Recheck/Abnormal Lab/Rx Stated complaint: HYPERTESION Time Seen by Provider: 02/18/25 19:18 Related Data Home Medications ?Medication ?Instructions ?Recorded ?Confirmed rosuvastatin 20 mg tablet 20 mg PO DAILY 02/18/25 02/19/25 zolpidem 10 mg tablet 10 mg PO HS PRN sleep 02/18/25 02/19/25 Allergies Allergy/AdvReac Type Severity Reaction Status Date / Time hydralazine AdvReac Severe SVT Verified 02/18/25 22:16 Opioid HPI Opioid Management Most Recent Opioid Data: Last Pain Assessment Today, 01:00 Last ORT Total Score 0 Today, 00:16 Last ORT Risk Category Low Risk Today, 00:16 [facility] Medical History (Updated 02/19/25 @ 01:02 by Manolo Hawkins RN) Hyperlipidemia ?E78.5 - Hyperlipidemia, unspecified (ICD-10) Social History (Updated 02/19/25 @ 01:05 by Manolo Hawkins RN) Within the past year, how often did you have a drink containing alcohol: 4 or more times a week Within the past year, how many standard drinks containing alcohol did you have on a typical day: 1 or 2 Within the past year, how often did you have six or more drinks on one occasion: never Total score: 0 Score interpretation: Questions 2 and 3 are 0. It can be assumed that the patient's drinking is below the recommended limits. However, please confirm the accuracy of the patient's alcohol intake over the last few months. 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 Known occupational exposures/hazards: No Highest level of school completed/degree received: Bachelor's degree Are you now , , , , never or living with a partner: In a typical week, how many times do you talk on the telephone with family, friends, or neighbors: once per week How often do you get together with friends or relatives: once per week Do you belong to any clubs or organizations such as sabianist groups unions, fraternal or athletic groups, or school groups: no Little interest or pleasure in doing things: not at all Feeling down, depressed, or hopeless: not at all Feel stressed/tense/nervous/anxious/difficulty sleeping: not at all Gender Identity: female Exam Constitutional Vital Signs, click to edit/add: Last Vital Signs Temp 98.1 F 02/19/25 04:00 Pulse 79 02/19/25 04:00 Resp 16 02/19/25 04:00 BP 159/80 H 02/19/25 04:00 Pulse Ox 95 02/19/25 04:00 O2 Del Method Room Air 02/19/25 04:00 Course Vital Signs Vital signs: Vital Signs Temperature 98.2 F 02/18/25 18:35 Pulse Rate 76 02/18/25 18:35 Respiratory Rate 18 02/18/25 18:35 Blood Pressure 170/88 H 02/18/25 18:35 Pulse Oximetry 99 02/18/25 18:35 Oxygen Delivery Method Room Air 02/18/25 18:35 Temperature 98.1 F 02/19/25 04:00 Pulse Rate 79 02/19/25 04:00 Respiratory Rate 16 02/19/25 04:00 Blood Pressure 159/80 H 02/19/25 04:00 Pulse Oximetry 95 02/19/25 04:00 Oxygen Delivery Method Room Air 02/19/25 04:00 Medical Decision Making MDM Narrative Medical decision making narrative: The patient presented for elevated blood pressure. She reported she was feeling lightheaded today and decided to check her BP at home. She reported a mild JOHNSON. EKG showed sinus rhythm upon arrival with t-wave abnormalities. There was no previous EKG available for comparison. She was given hydralazine here for her blood pressure. She developed chest pressure after being given the hydralazine. Her face was also flushed. At approximately 2100 the patient developed SVT. Her HR was in the 180s. She reported her chest pressure was increased and her heart was racing. The patient was given adenosine 6 mg IV at the direction of Dr. Morataya; ED attending was at bedside. Her HR decreased to 90-100. Her BP improved and her chest pressure lessened. Troponin was negative x2. CT head was negative for acute findings. Chest x-ray and CT scan of the chest were pending. Care was resumed to Dr. Morataya. See his dictation for further evaluation and treatment. care transferred at end of PA shift. CTA chest with mild atelectasis right middle and RLL as well as LLL no PE discussed with the hospitalist and will plan obs admission Lab Data Labs: Lab Results 02/18/25 02/18/25 02/18/25 Range/Units 19:35 19:36 21:26 WBC 6.5 (4.0-11.0) 10^3/uL RBC 4.10 L (4.20-5.40) 10^6/uL Hgb 12.9 (12.0-16.0) g/dL Hct 38.5 (36.0-48.0) % MCV 93.9 (81.0-99.0) fL MCH 31.5 (26.7-34.0) pg MCHC 33.5 (29.9-35.2) g/dL RDW 12.3 (11.0-15.0) % Plt Count 292 (150-450) 10^3/uL MPV 9.6 (9.5-13.5) fL Neut % (Auto) 65.6 (43.0-75.0) % Lymph % (Auto) 23.4 (20.5-60.0) % [place] % (Auto) 9.1 (1.7-12.0) % Eos % (Auto) 1.4 (0.9-7.0) % Baso % (Auto) 0.3 (0.2-2.0) % Neut # (Auto) 4.3 (1.4-6.5) 10^3/uL Lymph # (Auto) 1.5 (1.2-3.8) 10^3/uL [place] # (Auto) 0.6 (0.3-0.8) 10^3/uL Eos # (Auto) 0.1 (0.0-0.7) 10^3/uL Baso # (Auto) 0.0 (0.0-0.1) 10^3/uL Abs Immat Gran (auto) 0.01 (0.00-0.03) 10^3/uL Imm/Tot Granulo (auto) 0.2 (0.0-0.5) % Sodium 140 (136-145) mmol/L Potassium 3.6 (3.5-5.1) mmol/L Chloride 107 (98-107) mmol/L Carbon Dioxide 29.4 (21.0-32.0) mmol/L Anion Gap 7.2 BUN 14.0 (7.0-18.0) mg/dL Creatinine 0.71 (0.55-1.02) mg/dL Est GFR ( Amer) >60 (>=60 mL/min/1.73m^2) Est GFR (Non-Af Amer) >60 (>=60 mL/min/1.73m^2) BUN/Creatinine Ratio 19.7 Glucose 119 H (74-106) mg/dL Calcium 9.2 (8.5-10.1) mg/dL Magnesium 1.8 (1.8-2.4) mg/dL Total Bilirubin 0.4 (0.2-1.0) mg/dL AST 17 (15-37) U/L ALT 22 (14-59) U/L Alkaline Phosphatase 92 (46-116) U/L Troponin I High Sens 6.0 6.9 (4.0-51.3) pg/mL Total Protein 7.2 (6.4-8.2) g/dL Albumin 3.8 (3.4-5.0) g/dL Globulin 3.4 g/dL Albumin/Globulin Ratio 1.1 TSH 1.617 (0.358-3.740) uIU/mL Urine Color Lt. yellow (YELLOW) Urine Clarity Clear (CLEAR) Urine pH 5.5 (5.0-9.0) Ur Specific [place] <=1.005 A (1.005-1.025) Urine Protein Negative (NEG/TRACE) mg/dL Urine Glucose (UA) Negative (NEGATIVE) mg/dL Urine Ketones Negative (NEGATIVE) mg/dL Urine Occult Blood Negative (NEGATIVE) Urine Nitrite Negative (NEGATIVE) Urine Bilirubin Negative (NEGATIVE) Urine Urobilinogen 1.0 (0.2-1.0) EU/dL Ur Leukocyte Esterase Trace A (NEGATIVE) Urine RBC None seen (0-2) #/HPF Urine WBC 2-5 A (NONE SEEN) #/HPF Ur Squamous Epith Cells Rare (NONE/RARE) #/LPF Urine Crystals None seen (None Seen) #/HPF Urine Bacteria Trace A (NONE SEEN) #/HPF Urine Casts Seen A (NONE SEEN) #/LPF Hyaline Casts Rare Urine Mucus None seen (NONE SEEN) Ur Culture Indicated? No Discharge Plan Discharge Chief Complaint: Recheck/Abnormal Lab/Rx Clinical Impression: Hypertension, SVT (supraventricular tachycardia) Patient Disposition: Admitted as Observation Discharge Date/Time: 02/18/25 23:44
[2025-02-18 19:54] LABS: Hematocrit 38.5 % (36.0-48.0); Hemoglobin 12.9 g/dL (12.0-16.0); Immature Granulocytes Abs Auto 0.01 10^3/uL (0.00-0.03); Immature Granulocytes Pct Auto 0.2 % (0.0-0.5); Lymphocytes Absolute Auto 1.5 10^3/uL (1.2-3.8); Mean Corpuscular HGB Conc 33.5 g/dL (29.9-35.2); Mean Corpuscular Hemoglobin 31.5 pg (26.7-34.0); Mean Corpuscular Volume 93.9 fL (81.0-99.0); Platelet Count 292 10^3/uL (150-450); Red Blood Count 4.10 10^6/uL (4.20-5.40); White Blood Count 6.5 10^3/uL (4.0-11.0)
[2025-02-18 20:09] LABS: Glucose Urine UA NEGATIVE (NEGATIVE)
[2025-02-18 20:16] LABS: Alanine Aminotransferase 22 U/L (14-59); Albumin Globulin Ratio 1.1; Albumin Level 3.8 g/dL (3.4-5.0); Alkaline Phosphatase 92 U/L (46-116); Anion Gap 7.2; Aspartate Amino Transferase 17 U/L (15-37); Blood Urea Nitrogen 14.0 mg/dL (7.0-18.0); Calcium 9.2 mg/dL (8.5-10.1); Carbon Dioxide 29.4 mmol/L (21.0-32.0); Chloride 107 mmol/L (98-107); Estimated GFR (African America >60 (>=60 mL/min/1.73m^2); Estimated GFR (Non-African Ame >60 (>=60 mL/min/1.73m^2); Globulin 3.4 g/dL; Glucose 119 mg/dL (74-106); Magnesium 1.8 mg/dL (1.8-2.4); Potassium 3.6 mmol/L (3.5-5.1); Sodium 140 mmol/L (136-145); Total Protein 7.2 g/dL (6.4-8.2)
[2025-02-18 20:21] LABS: Cast Seen? SEEN #/LPF (NONE SEEN); Crystals Seen? None Seen #/HPF (None Seen)
[2025-02-18 20:22] LABS: Urine Culture Indicated NO
[2025-02-18] MEDS: HYDRALAZINE HCL 20 MG/ML VIAL 10 MG IVP (20:32)
--- NOTE | 2025-02-18 20:46 | ECG_ITS ---
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 Measurements Intervals [place] Rate: 87 P: 77 [place]: 136 QRS: 77 QRSD: 92 T: 55 QT: 352 QTc: 397 Interpretive Statements 1100 Sinus rhythm 1970 with occasional ectopic premature complexes 3234 Anteroseptal myocardial infarction, age undetermined [address] depression 4564 Twave abnormality, possible lateral ischemia 9150 abnormal ECG Compared to ECG 02/18/2025 19:31:25 No significant changes Electronically Signed On 02-19-2025 8:37:17 EDT by MARY GOMEZ M.D.
--- NOTE | 2025-02-18 20:49 | ECG_ITS ---
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 Measurements Intervals [place] Rate: 104 P: 70 [place]: 140 QRS: 81 QRSD: 94 T: 267 QT: 326 QTc: 387 Interpretive Statements 1120 Sinus tachycardia 3234 Anteroseptal myocardial infarction, age undetermined [address] depression, possible subendocardial injury 4564 Twave abnormality, possible lateral ischemia 4664 [place] abnormality, possible inferior ischemia 9150 abnormal ECG Compared to ECG 02/18/2025 20:45:24 Sinus rhythm no longer present Myocardial infarct finding still present ST (T wave) deviation still present Possible ischemia still present Electronically Signed On 02-19-2025 8:37:41 EDT by MARY GOMEZ M.D.
[2025-02-18] MEDS: ADENOSINE 6 MG/2 ML VIAL IVP (21:13)
[2025-02-18] MEDS: ASPIRIN 81 MG TAB.CHEW 324 MG PO (21:55)
--- OUTSIDE RECORDS SUMMARY | 2025-02-18 23:49 | XMS_ITS | CCD ---
Author Organization [facility] Care Team Providers Care Ophthalmic Technician Apprentice Name Role Phone DR JESÚS TRIPATHI Consulting Unavailable DEUCE, DR TREVIÑO Attending Unavailable TRIPATHI, DR TREVIÑO Admitting Unavailable DEUCE, DR TREVIÑO Primary Care Unavailable [place], DR WEI Ferro Consulting Unavailable Jesús Tripathi MD Unavailable [phone] Jesús Tripathi MD Primary Care Provider [phone] TRACEE WOMACK Attending Unavailable BLACKSTONJHOANA Attending Unavailable [...] Care Provider Kiet Pacheco DO Attending Provider Kiet Pacheco Attending Unavailable ViscKiet way Admitting [...] n 02-07-2025 MM screening mammo BI w/CAD [facility] [address] [place] [address] Mammography Report Signed Patient: Alena Tapia MR#: [id number] 31 : 1945 Acct:[id number] Age/Sex: 79 / F Adm Date: 02/07/25 Loc: [place] Room: Type: [facility] Attending Dr: Kiet Pacheco DO Ordering Provider: Kiet Pacheco DO Date of Service: 02/07/25 Procedure(s): MM screening mammo BI w/CAD Accession Number(s): ([id number]) MM/MM screening mammo BI w/CAD: SCREENING Copies [...] Quinn M.D. 02/07/2025 4:20 PM Dictation Location: [facility] Dictated By: Deshawn Quinn II, MD 02/07/25 1250 Signed By: 02/07/25 1620 [facility] Mammography reportOrdered By : Deshawn Quinn on 02-07-[address] [facility] [address] [place] [address] Mammography Report Signed Patient: Alena Tapia MR#: [id number] : 1945 Acct:[id number] Age/Sex: 79 / F Adm Date: 5 Loc: [place] Room: Type: [facility] Attending Dr: Kiet Pacheco DO Ordering Provider: Kiet Pacheco DO Date of Service: 02/07/25 Procedure(s): MM screening mammo BI w/CAD Accession Number(s): ([id number]) MM/MM screening mammo BI w/CAD: SCREENING Copies [...] Quinn M.D. 02/07/2025 4:20 PM Dictation Location: [facility] Dictated By: Deshawn Quinn II, MD 02/07/25 1613 Signed By: 02/07/25 1620 [facility] Work Phone: No Panel Informationon 12-09 DOMINIQUE [...] and draped in the usual sterile fashion. [facility] DOMINIQUE Card 12/09/2024 11:25 AM L Inj/Asp: [...] and draped in the usual sterile fashion. [facility] [employer] No Panel Informationon 06-20 Binta Gannon NP [...] discussed. Consent was given by the patient. [facility] [employer] No Panel Informationon 06-13 Binta Gannon NP 06/14/2024 12:31 PM L Inj/Asp: L knee on 06/13/2024 9:54 AM Indications: pain Details: 20 G needle, anterolateral approach Medications: 40 mg methylPREDNISolone acetate 40 MG/ML Procedure, treatment alternatives, risks and benefits explained, specific risks discussed. Consent was given by the patient. [employer] Radiology Study observation (narrative) [employer] XR Knee - left 1 or 2 Viewso n 06-13-2024 Imaging Result: AP and lateral views of left knee showed severe varus deformity with tjml-xm-zldx articulation to the medial joint line, flattening [...] joint disease left knee with varus deformity [email or web address] XR Knee - right 1 or 2 Views on 06-13-2024 Imaging Result: X-rays AP and lateral of right knee showed severe varus deformity with qsgm-af-kfuo articulation to the medial joint line. There is flattening of the articular surfaces medially to the tibia plateau and femoral condyle. There is marginal osteophytic formation and subchondral sclerosis noted medially and the patellofemoral joint. There is no evidence of fracture or dislocation. Bony structures viewed showed appropriate ossification. [employer] XR Knee - right 1 or 2 Views Ordered By: Jr. Kenny on 06-13-2024 [employer] Work Phone: CBC (INCLUDES DIFF/PLT)on Basophils (Bld) [#/Vol] 0.028 10*3/uL Normal 0-200 [facility] Comment on above: Performed By: #### 7 556, 61000, 4112 #### [facility] [address], [address] [place], [place] [address] Plant Operations Manager: Devan Colbert MD Basophils/100 WBC (Bld) 0.5 % Normal [facility] Comment on above: Performed By: #### 7 063, 02095, 3045 #### [facility] [address], [address] [place], [place] [address] Plant Operations Manager: Devan Colbert MD Eosinophils (Bld) [#/Vol] 0.112 10*3/uL Normal 15-500 [facility] Comment on above: Performed By: #### 7 782, 78059, 6399 #### [facility] of [place] [address] Plant Operations Manager: Devan Colbert MD Eosinophils/100 WBC (Bld) 2.0 % Normal [facility] Comment on above: Performed By: #### 7 600, 36066, 6399 #### [facility] [place] [address] Plant Operations Manager: Devan Colbert MD Erythrocyte distribution width (RBC) [Ratio] 12.2 % Normal 11.0-15.0 [facility] Comment on above: Performed By: #### 7 600, 29187, 6399 #### [facility] [place] [address] Plant Operations Manager: Devan Colbert MD Hematocrit (Bld) [Volume fraction] 38.2 % Normal 35.0-45.0 [facility] Comment on above: Performed By: #### 7 600, 79319, 6399 #### [facility] [place] [address] Plant Operations Manager: Devan Colbert MD Hemoglobin (Bld) [Mass/Vol] 12.6 g/dL Normal 11.7-15.5 [facility] Comment on above: Performed By: #### 7 600, 50903, 6399 #### [facility] [place] [address] Plant Operations Manager: Devan Colbert MD Lymphocytes (Bld) [#/Vol] 1.674 10*3/uL Normal 850-3900 [facility] Comment on above: Performed By: #### 7 600, 25627, 6399 #### [facility] [place] [address] Plant Operations Manager: Devan Colbert MD Lymphocytes/100 WBC (Bld) 29.9 % Normal [facility] Comment on above: Performed By: #### 7 600, 54825, 6399 #### [facility] [place] [address] Plant Operations Manager: Devan Colbert MD MCH (RBC) [Entitic mass] 31.0 pg Normal 27.0-33.0 [facility] Comment on above: Performed By: #### 7 600, 63828, 6399 #### [facility] [place] [address] Plant Operations Manager: Devan Colbert MD MCHC (RBC) [Mass/Vol] 33.0 [...] clinical condition. Performed By: #### 7 600, 51622, 0099 #### [facility] [place] [address] Plant Operations Manager: Devan Colbert MD MCV (RBC) [Entitic vol] 94.1 fL Normal 80.0-100.0 [facility] Comment on above: Performed By: #### 7 600, 23775, 1599 #### [facility] [place] [address] Plant Operations Manager: Devan Colbert MD Monocytes (Bld) [#/Vol] 0.526 10*3/uL Normal 200-950 [facility] Comment on above: Performed By: #### 7 600, 34719, 6199 #### [facility] [place] [address] Plant Operations Manager: Devan Colbert MD Monocytes/100 WBC (Bld) 9.4 % Normal [facility] Comment on above: Performed By: #### 7 600, 36334, 9699 #### [facility] [place] [address] Plant Operations Manager: Devan Colbert MD Neutrophils (Bld) [#/Vol] 3.259 10*3/uL Normal 1991-4808 [facility] Comment on above: Performed By: #### 7 600, 30450, 6399 #### [facility] of [address], [address] [place] [address] Plant Operations Manager: Devan Colbert MD Neutrophils/100 WBC (Bld) 58.2 % Normal [facility] Comment on above: Performed By: #### 7 600, 63325, 6399 #### [facility] of [address], [address] [place] [address] Plant Operations Manager: Devan Colbert MD Platelet mean volume (Bld) [Entitic vol] 9.9 fL Normal 7.5-12.5 [facility] Comment on above: Performed By: #### 7 600, 47604, 6399 #### [facility] of [address], [address] [place] [address] Plant Operations Manager: Devan Colbert MD Platelets (Bld) [#/Vol] 332 10*3/uL Normal 140-400 [facility] Comment on above: Performed By: #### 7 600, 32336, 6399 #### [facility] of [address], [address] [place] [address] Plant Operations Manager: Devan Colbert MD RBC (Bld) [#/Vol] 4.06 10*6/uL Normal 3.80-5.10 [facility] Comment on above: Performed By: #### 7 600, 18092, 6399 #### [facility] of [address], [address] [place] [address] Plant Operations Manager: Devan Colbert MD WBC (Bld) [#/Vol] 5.6 10*3/uL Normal 3.8-10.8 [facility] Comment on above: Performed By: #### 7 600, 78958, 6399 #### [facility] of [address], [address] [place] [address] Plant Operations Manager: Devan Colbert MD COMPREHENSIVE METABOLIC PANE [facility] 06-07-2024 Albumin [Mass/Vol] 4.2 g/dL Normal 3.6-5.1 [facility] Comment on above: Performed By: #### 7 600, 40782, 6399 #### [facility] of [address], [address] [place] [address] Plant Operations Manager: Devan Colbert MD Albumin/Globulin [Mass ratio] 2.0 {ratio} Normal 1.0-2.5 [facility] Comment on above: Performed By: #### 7 600, 85362, 6399 #### [facility] of [address], [address] [place] [address] Plant Operations Manager: Devan Colbert MD ALP [Catalytic activity/Vol] 64 U/L Normal 37-153 [facility] Comment on above: Performed By: #### 7 600, 97477, 6399 #### [facility] of [address], [address] [place] [address] Plant Operations Manager: Devan Colbert MD ALT [Catalytic activity/Vol] 14 U/L Normal 6-29 [facility] Comment on above: Performed By: #### 7 600, 91342, 6399 #### [facility] [place] [address] Plant Operations Manager: Devan Colbert MD AST [Catalytic activity/Vol] 21 U/L Normal 10-35 [facility] Comment on above: Performed By: #### 7 600, 34962, 6399 #### [facility] [place] [address] Plant Operations Manager: Devan Colbert MD Bilirubin [Mass/Vol] 0.5 mg/dL Normal 0.2-1.2 [facility] Comment on above: Performed By: #### 7 600, 39794, 6399 #### [facility] [place] [address] Plant Operations Manager: Devan Colbert MD Calcium [Mass/Vol] 9.3 mg/dL Normal 8.6-10.4 [facility] Comment on above: Performed By: #### 7 600, 03971, 6399 #### [facility] of [address], [address] [place] [address] Plant Operations Manager: Devan Colbert MD Chloride [Moles/Vol] 104 mmol/L Normal 98-110 [facility] Comment on above: Performed By: #### 7 600, 79136, 6399 #### [facility] of [address], [address] [place] [address] Plant Operations Manager: Devan Colbert MD CO2 [Moles/Vol] 29 mmol/L Normal 20-32 [facility] Comment on above: Performed By: #### 7 600, 91255, 6399 #### [facility] of [address], [address] [place] [address] Plant Operations Manager: Devan Colbert MD Creatinine [Mass/Vol] 0.53 mg/dL Low 0.60-1.00 [facility] Comment on above: Performed By: #### 7 600, 30628, 6399 #### [facility] of [address], [address] [place] [address] Plant Operations Manager: Devan Colbert MD GFR/1.73 sq M.predicted among non-blacks MDRD (S/P/Bld) [Vol rate/Area] 95 mL/min/{1.73_m2} Normal > OR = 60 [facility] Comment on above: Performed By: #### 7 600, 15984, 6399 #### [facility] [place] [address] Plant Operations Manager: Devan Colbert MD Globulin (S) [Mass/Vol] 2.1 g/dL Normal 1.9-3.7 [facility] Comment on above: Performed By: #### 7 600, 71309, 6399 #### [facility] of [address], [address] [place] [address] Plant Operations Manager: Devan Colbert MD Glucose [Mass/Vol] 93 mg/dL Normal 65-99 [facility] Comment on above: Result Comment: Fasting reference interval Performed By: #### 7 600, 00999, 6399 #### [facility] of [address], [address] [place] [address] Plant Operations Manager: Devan Colbert MD Potassium [Moles/Vol] 4.4 mmol/L Normal 3.5-5.3 [facility] Comment on above: Performed By: #### 7 600, 15651, 6399 #### [facility] [place] [address] Plant Operations Manager: Devan Colbert MD Protein [Mass/Vol] 6.3 g/dL Normal 6.1-8.1 [facility] Comment on above: Performed By: #### 7 600, 44355, 6399 #### [facility] [place] [address] Plant Operations Manager: Devan Colbert MD Sodium [Moles/Vol] 142 mmol/L Normal 135-146 [facility] Comment on above: Performed By: #### 7 600, 86689, 6399 #### [facility] [place] [address] Plant Operations Manager: Devan Colbert MD Urea nitrogen [Mass/Vol] 20 mg/dL Normal 7-25 [facility] Comment on above: Performed By: #### 7 600, 33472, 6399 #### [facility] [place] [address] Plant Operations Manager: Devan Colbert MD Urea nitrogen/Creatinin e [Mass ratio] 38 mg/mg High 6-22 [facility] Comment on above: Performed By: #### 7 600, 92515, 6399 #### [facility] [place] [address] Plant Operations Manager: Devan Colbert MD LIPID PANEL, [facility] 12-0 Cholesterol [Mass/Vol] 207 mg/dL High <200 [facility] Comment on above: Order Comment: FASTI NG:YES FASTING: YES Performed By: #### 7 600, 77929, 6399 #### [facility] [place] [address] Plant Operations Manager: Devan Colbert MD Cholesterol in HDL [Mass/Vol] 82 mg/dL Normal > OR = 50 [facility] Comment on above: Order Comment: FASTI NG:YES FASTING: YES Performed By: #### 7 600, 27724, 6399 #### [facility] [address], [address] [place] [address] Plant Operations Manager: Devan Colbert MD Cholesterol in LDL [Mass/Vol] [...] LDL-C. Matheus SS et al. TOSHA. 2013;310(19): 6653-0744 (http://education.[employer]/faq/XVZ568) Performed By: #### 7 600, 73747, 6399 #### [facility] [address], [address] [place] [address] Plant Operations Manager: Devan Colbert MD Cholesterol.total/ Cholesterol in HDL [Mass ratio] 2.5 {ratio} Normal <5.0 [facility] Comment on above: Order Comment: FASTI NG:YES FASTING: YES Performed By: #### 7 600, 65505, 1699 #### [facility] [address], [address] [place] [address] Plant Operations Manager: Devan Colbert MD NON HDL CHOLESTEROL 125 mg/dL (calc) Normal <130 [facility] Comment on above: Order Comment: FASTI NG:YES FASTING: YES Result Comment: For patients with diabetes plus 1 major ASCVD risk factor, treating to a non-HDL-C goal of <100 mg/dL (LDL-C of <70 mg/dL) is considered a therapeutic option. Performed By: #### 7 600, 00604, 6399 #### [facility] [address], [address] [place] [address] Plant Operations Manager: Devan Colbert MD Triglyceride [Mass/Vol] 62 mg/dL Normal <150 [facility] Comment on above: Order Comment: FASTI NG:YES FASTING: YES Performed By: #### 7 600, 11582, 3199 #### [facility] [address] [place] [address], [address] [place] [address] Plant Operations Manager: Devan Colbert MD TSH W/REFLEX TO FT4on 2023 TSH W/REFLEX TO FT4 2.13 mIU/L Normal 0.40-4.50 [facility] Comment on above: Performed By: #### 7 600, 81860, 8999 #### [facility] [address], [address] [place] [address] Plant Operations Manager: Devan Colbert MD HbA1c (Bld) [Mass fraction]o n 06-06-2024 [facility] - Hematology [facility] Cell countson 06-06-2024 HbA1c (Bld) [Mass fraction] 5.5 % [facility] Vital Signs Date Time Vital Sign Value Performing Clinician Facility 01-30-2025 09:26-0400 Body height 163.2 cm Jesús Tripathi MD Work Phone: [facility] 01-30-2025 09:26-0400 Diastolic blood pressure 80 mm[Hg] Jesús Tripathi MD Work Phone: [facility] 01-30-2025 09:26-0400 Heart rate 89 /min Jesús Tripathi MD Work Phone: [facility] 01-30-2025 09:26-0400 SaO2% (BldA) [Mass fraction] 96 % Jesús Tripathi MD Work Phone: [facility] 01-30-2025 09:26-0400 Systolic blood pressure 128 mm[Hg] Jesús Tripathi MD Work Phone: [facility] 12-05-2024 14:46-0400 Body mass index (BMI) [Ratio] 25.55 kg/m2 Kiet Pacheco DO Work Phone: [facility] 12-05-2024 14:46-0400 Body weight 68.04 kg Kiet Pacheco DO Work Phone: [facility] 12-05-2024 14:46-0400 Diastolic blood pressure 76 mm[Hg] Kiet Visci DO Work Phone: [facility] 12-05-2024 14:46-0400 Systolic blood pressure 140 mm[Hg] Kiet Visci DO Work Phone: [facility] 11-01-2024 13:33-0400 Body height 163.2 cm Tracee Hemmer PA Work Phone: [facility] 11-01-2024 13:33-0400 Body mass index (BMI) [Ratio] 25.68 kg/m2 Tracee Hemmer PA Work Phone: [facility] 11-01-2024 13:33-0400 Body weight 68.4 kg Tracee Hemmer PA Work Phone: [facility] 11-01-2024 13:33-0400 Diastolic blood pressure 82 mm[Hg] Tracee Hemmer PA Work Phone: [facility] Comment on above: sitting to standing 138/82 11-01-2024 13:33-0400 Heart rate 91 /min Tracee Hemmer PA Work Phone: [facility] 11-01-2024 13:33-0400 Respiratory rate 16 /min Tracee Hemmer PA Work Phone: [facility] 11-01-2024 13:33-0400 SaO2% (BldA) [Mass fraction] 95 % Tracee Hemmer PA Work Phone: [facility] 11-01-2024 13:33-0400 Systolic blood pressure 138 mm[Hg] Tracee Hemmer PA Work Phone: [facility] Comment on above: sitting to standing 138/82 06-06-2024 09:45-0500 Body mass index (BMI) [Ratio] 26.26 kg/m2 Jesús Tripathi MD Work Phone: [facility] 06-06-2024 09:45-0500 Body weight 69.94 kg Jesús Tripathi MD Work Phone: [facility] 06-06-2024 09:45-0500 Diastolic blood pressure 90 mm[Hg] Jesús Tripathi MD Work Phone: [facility] 06-06-2024 09:45-0500 Heart rate 74 /min Jesús Tripathi MD Work Phone: [facility] 06-06-2024 09:45-0500 Respiratory rate 17 /min Jesús Tripathi MD Work Phone: [facility] 06-06-2024 09:45-0500 SaO2% (BldA) [Mass fraction] 97 % Jesús Tripathi MD Work Phone: [facility] 06-06-2024 09:45-0500 Systolic blood pressure 135 mm[Hg] Jesús Tripathi MD Work Phone: [facility] 04-04-2024 14:40-0400 Body height 163.2 cm Jesús Tripathi MD Work Phone: [facility] 04-04-2024 14:40-0400 Body mass index (BMI) [Ratio] 25.21 kg/m2 Jesús Tripathi MD Work Phone: [facility] 04-04-2024 14:40-0400 Body weight 67.13 kg Jesús Tripathi MD Work Phone: [facility] 04-04-2024 14:40-0400 Diastolic blood pressure 72 mm[Hg] Jesús Tripathi MD Work Phone: [facility] 04-04-2024 14:40-0400 Heart rate 71 /min Jesús Tripathi MD Work Phone: [facility] 04-04-2024 14:40-0400 SaO2% (BldA) [Mass fraction] 98 % Jesús Tripathi MD Work Phone: [facility] 04-04-2024 14:40-0400 Systolic blood pressure 128 mm[Hg] Jesús Tripathi MD Work Phone: [facility] 03-17-2024 11:05-0400 Body height 163.2 cm Jesús Tripathi MD Work Phone: [facility] 03-17-2024 11:05-0400 Body mass index (BMI) [Ratio] 25.21 kg/m2 Jesús Tripathi MD Work Phone: [facility] 03-17-2024 11:05-0400 Body temperature 98.29 [degF] Jesús Tripathi MD Work Phone: [facility] 03-17-2024 11:05-0400 Body weight 67.13 kg Jesús Tripathi MD Work Phone: [facility] 03-17-2024 11:05-0400 Diastolic blood pressure 74 mm[Hg] Jesús Tripathi MD Work Phone: [facility] 03-17-2024 11:05-0400 Heart rate 66 /min Jesús Tripathi MD Work Phone: [facility] 03-17-2024 11:05-0400 SaO2% (BldA) [Mass fraction] 100 % Jessú Tripathi MD Work Phone: [facility] 03-17-2024 11:05-0400 Systolic blood pressure 128 mm[Hg] Jesús Tripathi MD Work Phone: [facility] Encounters Encounter Date Encounter Type Care Provider Facility Start: 02-07-2025 End: 02-07-2025 Patient encounter procedure Kiet Pacheco DO [facility] Work Phone: Start: 02-07-2025 End: 02-07-2025 ambulatory Jesús Tripathi II Work Phone: [facility] Work Phone: Start: 01-30-2025 End: 01-30-2025 Bamboo flowsheet Jesús Tripathi MD Work Phone: [facility] Start: 01-30-2025 End: 01-30-2025 Bamboo flowsheet Jesús Tripathi MD Work Phone: [facility] Start: 01-30-2025 End: 01-30-2025 Assay of hemosiderin, quant Jesús Tripathi MD Work Phone: [facility] Start: 01-30-2025 End: 01-30-2025 Patient encounter procedure Jesús Tripathi MD Work Phone: [facility] Comment on above: Routine general medi [...] 12-28-2024 End: 12-28-2024 Bamboo flowsheet John Kelbley SERVICE COORDINATOR [facility] Start: 12-28-2024 End: 12-28-2024 Bamboo flowsheet John Kelbley SERVICE COORDIN[facility] Start: 12-28-2024 End: 12-28-2024 ambulatory John Kelbley SERVICE [facility] Comment on above: Sciatica without sofi k pain, unspecified laterality (Primary Dx) Start: 12-26-2024 End: 12-26-2024 Bamboo flowsheet John Kelbley SERVICE COORDIN[facility] Start: 12-26-2024 End: 12-26-2024 Bamboo flowsheet John Kelbley SERVICE COORDIN[facility] Start: 12-26-2024 End: 12-26-2024 ambulatory John Kelbley SERVICE COORDIN[facility] Comment on above: Sciatica without sofi k pain, unspecified laterality (Primary Dx) Start: 12-21-2024 End: 12-21-2024 ambulatory John Kelbley SERVICE COORDIN[facility] Comment on above: Sciatica without sofi k pain, unspecified laterality (Primary Dx) Start: 12-19-2024 End: 12-19-2024 Bamboo flowsheet Jonh Kelbley SERVICE COORDIN[facility] Start: 12-19-2024 End: 12-19-2024 Bamboo flowsheet John Kelbley SERVICE COORDIN[facility] Start: 12-19-2024 End: 12-19-2024 ambulatory John Kelbley SERVICE CO[facility] Comment on above: Sciatica without sofi k pain, unspecified laterality (Primary Dx) Start: 12-14-2024 End: 12-15-2024 ambulatory John Mosley SERVICE COORDIN[facility] Comment on above: Sciatica without sofi k pain, unspecified laterality (Primary Dx) Polyosteoarthritis, unspecified Start: 12-12-2024 End: 12-12-2024 Bamboo flowsheet John Mosley SERVICE COORDIN[facility] Start: 12-12-2024 End: 12-12-2024 Bamboo flowsheet John Etienney SERVICE COORDINATOR [facility] Start: 12-12-2024 End: 12-12-2024 ambulatory John Mosley SERVICE CO[facility] Comment on above: Sciatica without sofi k pain, unspecified laterality (Primary Dx) Start: 12-09-2024 End: 12-09-2024 Bamboo flowsheet Torie Mclain PA Work Phone: [facility] Start: 12-09-2024 End: 12-09-2024 Bamboo flowsheet Torie Mclain PA Work Phone: [facility] Start: 12-09-2024 End: 12-09-2024 Office outpatient visit 25 minutes Torie Mclain PA Work Phone: [facility] Comment on above: Right knee [...] 15 minutes Kiet Pacheco DO Work Phone: [facility] Comment on above: Encounter for gyneco [...] Start: 12-05-2024 End: 12-05-2024 ambulatory John Kelbley SERVICE COORDIN[facility] Comment on above: Sciatica without sofi k pain, unspecified laterality (Primary Dx) Start: 12-02-2024 End: 12-02-2024 Bamboo flowsheet John Kelbley SERVICE COORDIN[facility] Start: 12-02-2024 End: 12-02-2024 Bamboo flowsheet John Kelbley SERVICE COORDIN[facility] Start: 12-02-2024 End: 12-02-2024 ambulatory John Kelbley SERVICE COORDIN[facility] Comment on above: Sciatica [...] Start: 11-23-2024 End: 11-23-2024 ambulatory John Kelbley SERVICE COORDIN[facility] Comment on above: Sciatica without sofi k pain, unspecified laterality (Primary Dx) Start: 11-23-2024 End: 11-23-2024 Bamboo flowsheet John Kelbley SERVICE COORDINATOR [facility] Start: 11-23-2024 End: 11-23-2024 Bamboo flowsheet John Kelbley SERVICE COORDINATOR [facility] Start: 11-21-2024 End: 11-21-2024 [...] 06-20-2024 End: 06-20-2024 Bamboo flowsheet Binta Gannon DATA VIRTUALIZATION CONSULTANT Work Phone: [facility] Start: 06-20-2024 End: 06-20-2024 Bamboo flowsheet Binta Gannon DATA VIRTUALIZATION CONSULTANT Work Phone: [facility] Start: 06-20-2024 End: 06-20-2024 Office outpatient visit 15 minutes Binta Gannon DATA VIRTUALIZATION CONSULTANT Work Phone: [facility] Comment on above: Right knee pain, uns pecified chronicity (Primary Dx); Left knee pain, unspecified chronicity; Arthritis of left knee; Arthritis of right knee Start: 06-20-2024 End: 06-20-2024 ambulatory BINTA Hopkins APLING Not Available Start: 06-13-2024 End: 06-13-2024 Bamboo flowsheet Binta Gannon DATA VIRTUALIZATION CONSULTANT Work Phone: [facility] Start: 06-13-2024 End: 06-13-2024 Bamboo flowsheet Binta Gannon DATA VIRTUALIZATION CONSULTANT Work Phone: [facility] Start: 06-13-2024 End: 06-13-2024 Office outpatient new 45 minutes Binta Gannon DATA VIRTUALIZATION CONSULTANT Work Phone: [facility] Comment on above: Right knee [...] hemosiderin, quant Jesús Tripathi MD Work Phone: [facility] Start: 06-06-2024 End: 06-06-2024 Patient encounter procedure Jesús Tripathi MD Work Phone: [facility] Comment on above: Routine general medi jurgen examination at health care facility (Primary Dx); Primary hypertension ([facility]/HCC); Age-related osteoporosis without current pathological fracture (CMS/HCC); [...] &/inj major jt/bursa w/o us Binta Gannon DATA VIRTUALIZATION CONSULTANT Work Phone: Start: 06-13-2024 Arthrocentesis aspir &/inj major jt/bursa w/o us Binta Hopkins Aplbárbara DATA VIRTUALIZATION CONSULTANT Work Phone: Start: 06-13-2024 Radiologic examinati on knee 1/2 views Binta Gannon DATA VIRTUALIZATION CONSULTANT Work Phone: Start: 06-06-2024 Hemoglobin glycosylated a1c [...] Treatment [facility] [address] [place] [address] John Mosley, SERVICE COORDINATOR [facility] Start: 12-28-2024 End: 12-28-2024 ambulatory [facility] Comment on above: Arrived Start: 12-26-2024 End: 12-26-2024 ambulatory [facility] Comment on above: Arrived Start: 12-21-2024 End: 12-21-2024 ambulatory 12/21/2024 11:00 AM EDT Treatment [facility] [address] [place] [address] John Mosley, SERVICE COORDINATOR [facility] Start: 12-19-2024 End: 12-19-2024 ambulatory [facility] Comment on above: Arrived Start: 12-14-2024 End: 12-14-2024 ambulatory 12/14/2024 10:00 AM EDT Treatment [facility] [address] [place] [address] John Mosley, SERVICE COORDINATOR [facility] Start: 12-12-2024 End: 12-12-2024 [...] Treatment [facility] [address] [place] [address] Jhoana Silveira, PT [address] [facility] [address] [place] [address] [facility] Start: 12-05-2024 End: 12-05-2024 [...] Treatment [facility] [address] [place] [address] John Mosley, SERVICE COORDINATOR [facility] Start: 12-02-2024 End: 12-02-2024 ambulatory 12/02/2024 9:30 AM EDT Treatment [facility] [address] [place] [address] John Mosley, SERVICE COORDINATOR [facility] Start: 11-30-2024 End: 11-30-2024 ambulatory [facility] Comment on above: Arrived Start: 11-23-2024 End: 11-23-2024 ambulatory 11/23/2024 3:00 PM EDT Treatment [facility] [address] [place] [address] [place] [address] John Mosley PTA [facility] Start: 11-21-2024 End: 11-21-2024 ambulatory [facility] Comment on above: Sciatica without sofi k pain, unspecified laterality Start: 11-01-2024 End: 11-01-2024 Patient encounter procedure 11/01/2024 1:30 PM EDT Office Visit [facility] [address] [place] [address] [place] [address] Tracee Womack PA [address] [place] [address] Arrived [facility] Comment on above: [...] [address] [place] [address] Binta Gannon, DATA VIRTUALIZATION CONSULTANT [address] [place] [address] Right knee pain, unspecified chronicity (Primary Dx); [...] Well ness (AWV) Medicare Annual Wellness (AWV) [facility] Start: 04-04-2024 End: 04-04-2024 Patient encounter procedure 04/04/2024 2:45 PM EDT Office Visit [facility] 112 [facility] [address] [place] [id number] Jesús Tripathi MD 112 [facility] [address] [place] [address] Encounter for screening mammogram for malignant neoplasm [...] [address] [facility] [address] [place] [address] Jesús Tripathi MD [address] [facility] [address] [place] [address] Arrived [facility] Comment on above: Arrived Start: 03-06-2024 Influenza vaccination Influenza Vacc ine (#1) [facility] CBC W Auto Different ial panel - Blood CBC and differential Lab Routine Primary hypertension (CMS/HCC) Osteoarthritis of spine with radiculopathy, lumbar region Ordered: 06/06/2024 [facility] Work Phone: Comment on above: Ordered: 06/06/2024 Immunizations Immunization Date Immunization Notes Care Provider Fa cility 07-13-2024 ABRYSVO - Respirator y syncytial virus (RSV), vaccine, bivalent, protein subunit RSV prefusion F, diluent reconstituted, 0.5 mL, PF Tracee FOX Work Phone: [facility] 05-18-2024 influenza, high dose seasonal, preservative-free Tracee Womack PA Work Phone: [facility] Work Phone: 05-18-2024 influenza virus vacc ine, unspecified formulation Jesús Tripathi MD Work Phone: [facility] 04-19-2023 SARS-COV-2 (COVID-19 ) vaccine, mRNA, spike protein, LNP, PF, alvaro-sucrose, 30 mcg/0.3 mL Jesús Tripathi MD Work Phone: [facility] 04-15-2023 influenza, seasonal, injectable Jesús Tripathi MD Work Phone: [facility] 04-15-2023 influenza virus vacc ine, unspecified formulation Jesús Tripathi MD Work Phone: [facility] 05-06-2022 influenza, high dose seasonal, preservative-free Jesús Tripathi MD Work Phone: [facility] 04-25-2022 Moderna Bivalent Simms ster Vaccination Jesús Tirpathi MD Work Phone: [facility] 05-22-2021 pneumococcal conjuga te vaccine, 13 esthela Tripathi MD Work Phone: [facility] 05-06-2021 influenza, high dose seasonal, preservative-free Jesús Tripathi MD Work Phone: [facility] 01-10-2020 zoster vaccine recombinant Jesús Tripathi MD Work Phone: [facility] 09-12-2019 pneumococcal polysaccharide vaccine, 23 valchristiano Tripathi MD Work Phone: [facility] 03-06-2019 influenza, seasonal, injectable, preservative free Jesús Tripathi MD Work Phone: [facility] 04-11-2015 zoster vaccine, live Jesús Tripathi MD Work Phone: [facility] 03-17-2014 zoster vaccine, live Jesús Tripathi MD Work Phone: [facility] Payers Date Payer Category Payer Self-pay 2023 [employer] ( [employer] others) [id number] 2022 [employer] ( and others) [facility] [id number] 2022-Present [facility] [address] [place] [address] [id number] 2022 ([facility]) [id number] 2022 [employer] ( and others) [id number] 2021 Medicaid [employer] MEDICARE A DVANTAGE [id number] 2021 Medicare AETNA MEDICARE A DVANTAGE AETNA MEDICARE REPLACEMENT [id number] 2021-Present [address] [place] [id number] 2021 Medicare [id number] 1959 [facility] of [facility] ( and others) [id number] 1959 Medicare [id number] 1945 Unknown [id number] 2.16.840.1.703503.3.579.2 .593 1945 Unknown [id number] 2.16.840.1.166468.3.579.2 .1259 1945 Unknown [id number] 2.16.840.1.293370.3.579.2 .1259 1945 Unknown [id number] 2.16.840.1.472845.3.579.2 .1259 1945 Unknown [id number] 2.16.840.1.401146.3.579.2 .1259 1945 Unknown [id number] 2.16.840.1.304960.3.579.2 .1259 1945 Unknown [id number] 2.16.840.1.693079.3.579.2 .1259 1945 Unknown [id number] 2.16.840.1.795652.3.579.2 .1259 1945 Unknown [id number] 2.16.840.1.780532.3.579.2 .1259 1945 Unknown [id number] 2.16.840.1.926150.3.579.2 .1259 1945 Unknown [id number] 2.16.840.1.827616.3.579.2 .1259 1945 Unknown [id number] 2.16.840.1.033299.3.579.2 .1259 1945 Unknown [id number] 2.16.840.1.594312.3.579.2 .1259 1945 Unknown [id number] 2.16.840.1.296616.3.579.2 .1259 1945 Unknown [id number] 2.16.840.1.442527.3.579.2 .1259 1945 Unknown [id number] 2.16.840.1.174826.3.579.2 .1259 1945 Unknown [id number] 2.16.840.1.738300.3.579.2 .1259 1945 Unknown [id number] 2.16.840.1.082899.3.579.2 .1259 1945 Unknown [id number] 2.16.840.1.639066.3.579.2 .1259 1945 Unknown [id number] 2.16.840.1.927804.3.579.2 .1259 1945 Unknown [id number] 2.16.840.1.528692.3.579.2 .1259 1945 Unknown [id number] 2.16.840.1.969409.3.579.2 .1259 1945 Unknown [id number] 2.16.840.1.083805.3.579.2 .1259 1945 Unknown [id number] 2.16.840.1.040595.3.579.2 .1259 Unknown [id number] 2.16.840.1.009289.3.579.2 .531 Social History Date Type Detail Facility [...] Never true [facility] Sex Female (finding) [facility] Functional Status Date Assessment Result Facility 11-01-2024 [...] Do you have a medical power of plastics seasoner operator?: (Patient-Rptd) (P) No Objective : BP 128/80 [...] - The patient is seeing a medical practice manager for this condition, treatment is deferred to [...] 30, 2025 documented in this encounter [facility] 12-15-2024 Telephone encount er Note Pt scheduled [facility] 12-15-2024 Miscellaneous Notes Formattin g of this note might be different from the original. Pt scheduled Patient is due for an appointment at the end of January. Please help her get scheduled for routine controlled medication follow up appointment. OARRS reviewed, Rx sent into patient's pharmacy. documented in this encounter [facility] 12-14-2024 Telephone encount er Note Patient is due for an appointment at the end of January. Please help her get scheduled for routine controlled medication follow up appointment. OARRS reviewed, Rx sent into patient's pharmacy. [facility] 12-09-2024 History of Presen t illness Narrative [...] requiring urgent evaluation. Visit was preformed using [employer] Co-pilot plant research technician speech recognition. documented in this encounter [facility] 12-07-2024 History of Presen t illness Narrative [...] to be instructed in home exercise program. Green Energy Marketing Analyst Goals: To be met in 10 weeks [...] below. Date: documented in this encounter [facility] 12-05-2024 History of Presen t illness Narrative Images from the original note were not included. Kiet Pacheco, Obstetrics and Gynecology Alena Tapia 1945 12/05/24 [id number] Yearly Wellness Exam Chief Complaint Patient presents with Gynecologic Exam Pt presents for yearly. Denies breast,bowel,bladder,cardiac catheterization technologist problems. Visit Vitals BP 140/76 Wt 150 [...] 04/30/2023 Osteoarthritis of lumbar spine 04/30/2023 Osteoporosis ([facility]) 04/30/2023 Other allergic rhinitis 04/30/2023 Patella fracture 06/14/2013 Rotator cuff syndrome ? Sacroiliitis ([facility]) 04/30/2023 Tear of meniscus of [...] age and hx) Mammogram 09/01/23 - Neg ([facility]) Dexa 06/24/22 normal spine, hips osteopenia. Colonoscopy [...] palpable. BACK: No obvious scoliosis/kyphosis. FEMALE GENITOURINARY: Ceramic Designer in room-EFG without sores/lesions, moderate atrophic vaginal [...] & Plan documented in this encounter [facility] 11-30-2024 History of Presen t illness Narrative [...] to be instructed in home exercise program. Detention Goals: To be met in 10 weeks [...] below. Date: documented in this encounter [facility] 11-14-2024 Telephone encount er Note She called back and we scheduled her Eval 11/21 @ 2:00 w/ Jhoana Silveira PT. [facility] 11-14-2024 Miscellaneous Notes Formattin g of this note might be different from the original. She called back and we scheduled her Eval 11/21 @ 2:00 w/ Jhoana Silveira PT. documented in this encounter [facility] 11-01-2024 History of Presen t illness Narrative [...] 04/30/2023 Osteoarthritis of lumbar spine 04/30/2023 Osteoporosis ([facility]/HCC) 04/30/2023 Other allergic rhinitis 04/30/2023 Sacroiliitis ([facility]/HCC) 04/30/2023 Past Surgical History: Procedure Laterality Date [...] or pronator drift. Coordination: Romberg sign negative. Kvqatw-Kehz-Iaxejm Test normal. Gait: Gait is intact. Psychiatric: [...] on file. documented in this encounter [facility] 06-20-2024 History of Presen t illness Narrative [...] if needed documented in this encounter [facility] 06-13-2024 History of Presen t illness Narrative [...] right knee showed severe varus deformity with ldza-dq-[id number] articulation to the medial joint line. There [...] left knee showed severe varus deformity with kosr-hx-hwme articulation to the medial joint line, flattening [...] knee injection documented in this encounter [facility] 06-06-2024 History of Presen t illness Narrative [...] Yes Cognitive Screening Three Word Registration: Banana, Grannis, Chair Clock Drawing: Normal Clock - 2 Three Word Recall: All 3 words correct - 3 Total Score (0-5 Points): 5 Pain Assessment Pain Score: 6 Advance Care Planning Do you have a living will?: No Do you have a medical power of plastics seasoner operator?: No Objective : BP 135/90 Pulse 74 [...] 06, 2024 documented in this encounter [facility] 05-25-2024 Telephone encount er Note OARRS reviewed, Rx sent into patient's pharmacy. [facility] 05-25-2024 Miscellaneous Notes Formattin g of this note might be different from the original. OARRS reviewed, Rx sent into patient's pharmacy. documented in this encounter [facility] 04-04-2024 History of Presen t illness Narrative [...] to improve. documented in this encounter [facility] 03-17-2024 History of Presen t illness Narrative [...] left shoulder 04/30/2023 Generalized osteoarthritis 04/30/2023 Hyperlipidemia ([facility]/HCC) 04/30/2023 Hypertension ([facility]) 04/30/2023 Insomnia 04/30/2023 Osteoarthritis of lumbar spine 04/30/2023 Osteoporosis ([facility]) 04/30/2023 Other allergic rhinitis 04/30/2023 Sacroiliitis ([facility]) 04/30/2023 Past Surgical History: Procedure [...] this encounter [facility] noteNo assessment information [facility] Work Phone: Reason for referral (narrative)No reason for referral information availableMer[facility]tr Work Phone: Reason for visit Narrative* Rehabilitation - Outpatient (Routine) - Authorized Specialty Diagnoses / Procedures Referred By Contac t Referred To Contact Physical Therapy Diagnoses Sciatica without back pain, unspecified laterality Procedures [place] OFFICE/OUTPATIENT NEW HIGH [facility] 60 MINUTES Jesús Tripathi MD 112 [facility] [address] [place] [address] Phone: tel: fax: Jhoana Silveira, PT 112 [facility] [address] [place] [address] Phone: tel: fax: Referral ID Status Reason Start Date Expiration Date Visits Requested Visits Authorized [id number] Authorized Specialty Services Required 11/11/2024 05/10/2025 99 99 [facility] HealthcareReason for visit Narrative* Rehabilitation - Outpatient (Routine) - Authorized Specialty Diagnoses / Procedures Referred By Tianna alston Referred To Contact Physical Therapy Diagnoses Sciatica without back pain, unspecified laterality Procedures [place] OFFICE/OUTPATIENT NEW HIGH [facility] 60 MINUTES Jesús Tripathi MD [address] [address] Phone: tel: fax: Jhoana Silveira, PT [address] [address] Phone: tel: fax: Referral ID Status Reason Start Date Expiration Date Visits Requested Visits Authorized [id number] Authorized Specialty Services Required 11/11/2024 07/05/2025 99 99 [facility] Healthcare Summary Purpose Family History No Family [...] DATE CREATED AUTHOR AUTHOR'S ORGANIZ ATION 01/30/2025 [facility] EPIC DATE CREATED AUTHOR AUTHOR'S ORGANIZ ATION 02/15/2025 [facility] Reason for Visit (unrecogniz ed section and content) Reason Onset Date Comments Med Refill 05/25/2024 Reason Comments Leg Pain Reason Comments Pain Specialty Diagnoses / Procedures Referred By Contac t Referred To Contact Orthopaedic Surgery Diagnoses Primary osteoarthritis of both knees Jesús Tripathi MD 112 [facility] [address] [place] [address] Phone: tel: fax: Binta Gannon, DATA VIRTUALIZATION CONSULTANT 112 [facility] [address] [place] [address] Phone: tel: fax: Referral ID Status Reason Start Date Expiration Date V isits Requested Visits Authorized [id number] Closed Specialty Services Required 06/06/2024 12/03/2024 1 1 Reason Comments Follow-up Pain Reason Onset Date Comments Med Refill 03/02/2024 Reason Comments LBP/ leg pain Results xray Reason Onset Date Comments Med Refill 08/01/2024 Reason Onset Date Comments Med Refill 10/10/2024 Reason Onset Date Comments PT Initial Eval 11/11/2024 fu 11/14/2024 Call Back 11/14/2024 Reason Comments Gynecologic Exam Pt presents for year ly. Denies breast,bowel,bladder,cardiac catheterization technologist problems. Reason Comments Pain Reason Onset Date Comments Med Refill 12/14/2024 Reason Comments Medicare Annual Wellness Visit [facility] Care Teams (unrecognized sec tion and content) Ophthalmic Technician Apprentice Relationship Specialty Start Date End Date Jesús Tripathi MD 112 [facility] [address] [place] [address] PCP - [employer] 07/06/20 Jesús Tripathi MD 112 [facility] [address] [place] [address] PCP - General Internal Medicine 11/11/22 Ophthalmic Technician Apprentice Relationship Specialty Start Date End Date Jesús Tripathi MD 112 [facility] [address] [place] [address] PCP - [employer] 07/06/20 Jesús Tripathi MD [address] [place] [address] PCP - General Internal Medicine 11/11/22 Ophthalmic Technician Apprentice Relationship Specialty Start Date End Date Jesús Tripathi MD [address] [place] [address] PCP - [employer] 07/06/20 Jesús Tripathi MD [address] [place] [address] PCP - General Internal Medicine 11/11/22 Ophthalmic Technician Apprentice Relationship Specialty Start Date End Date Jesús Tripathi MD [address] [place] [address] PCP - [employer] 07/06/20 Jesús Tripathi MD [address] [place] [address] PCP - General Internal Medicine 11/11/22 Ophthalmic Technician Apprentice Relationship Specialty Start Date End Date Jesús Tripathi MD [address] [place] [address] PCP - [employer] 07/06/20 Jesús Tripathi MD [address] [place] [address] PCP - General Internal Medicine 11/11/22 Ophthalmic Technician Apprentice Relationship Specialty Start Date End Date Jesús Tripathi MD [address] [place] [address] PCP - [employer] 07/06/20 Jesús Tripathi MD [address] [place] [address] [place] [address] PCP - General Internal Medicine 11/11/22 Ophthalmic Technician Apprentice Relationship Specialty Start Date End Date Jesús Tripathi MD [address] [place] [address] PCP - [employer] 07/06/20 Jesús Tripathi MD [address] [place] [address] PCP - General Internal Medicine 11/11/22 Ophthalmic Technician Apprentice Relationship Specialty Start Date End Date Jesús Tripathi MD [address] [place] [address] PCP - [employer] 07/06/20 Jesús Tripathi MD [address] [place] [address] PCP - General Internal Medicine 11/11/22 Ophthalmic Technician Apprentice Relationship Specialty Start Date End Date Jesús Tripathi MD [address] [place] [address] PCP - [employer] 07/06/20 Jesús Tripathi MD [address] [place] [address] PCP - General Internal Medicine 11/11/22 Ophthalmic Technician Apprentice Relationship Specialty Start Date End Date Jesús Tripathi MD [address] [place] [address] PCP - [employer] 07/06/20 Jesús Tripathi MD [address] [place] [address] PCP - General Internal Medicine 11/11/22 Ophthalmic Technician Apprentice Relationship Specialty Start Date End Date Jesús Tripathi MD [address] [place] [address] PCP - [employer] 07/06/20 Jesús Tripathi MD [address] [place] [address] PCP - General Internal Medicine 11/11/22 Ophthalmic Technician Apprentice Relationship Specialty Start Date End Date Jesús Tripathi MD [address] [place] [address] PCP - [employer] 07/06/20 Jesús Tripathi MD [address] [place] [address] PCP - General Internal Medicine 11/11/22 Ophthalmic Technician Apprentice Relationship Specialty Start Date End Date Jesús Tripathi MD [address] [place] [address] PCP - [employer] 07/06/20 Jesús Tripathi MD [address] [place] [address] PCP - General Internal Medicine 11/11/22 Ophthalmic Technician Apprentice Relationship Specialty Start Date End Date Jesús Tripathi MD [address] [place] [address] PCP - [employer] 07/06/20 Jesús Tripathi MD [address] [place] [address] PCP - General Internal Medicine 11/11/22 Ophthalmic Technician Apprentice Relationship Specialty Start Date End Date Jesús Tripathi MD [address] [place] [address] PCP - [employer] 07/06/20 Jesús Tripathi MD [address] [place] [address] PCP - General Internal Medicine 11/11/22 Ophthalmic Technician Apprentice Relationship Specialty Start Date End Date Jesús Tripathi MD [address] [place] [address] PCP - [employer] 07/06/20 Jesús Tripathi MD [address] [place] [address] PCP - General Internal Medicine 11/11/22 Ophthalmic Technician Apprentice Relationship Specialty Start Date End Date Jesús Tripathi MD [address] [place] [address] PCP - [employer] 07/06/20 Jesús Tripathi MD [address] [place] [address] PCP - General Internal Medicine 11/11/22 Ophthalmic Technician Apprentice Relationship Specialty Start Date End Date Jesús Tripathi MD [address] [place] [address] PCP - [employer] 07/06/20 Jesús Tripathi MD [address] [place] [address] PCP - General Internal Medicine 11/11/22 Ophthalmic Technician Apprentice Relationship Specialty Start Date End Date Jesús Tripathi MD [address] [place] [address] PCP - [employer] 07/06/20 Jesús Tripathi MD [address] [place] [address] PCP - General Internal Medicine 11/11/22 Ophthalmic Technician Apprentice Relationship Specialty Start Date End Date Jesús Tripathi MD [address] [place] [address] PCP - [employer] 07/06/20 Jesús Tripathi MD [address] [place] [address] PCP - General Internal Medicine 11/11/22 Ophthalmic Technician Apprentice Relationship Specialty Start Date End Date Jesús Tripathi MD [address] [place] [address] PCP - [employer] 07/06/20 Jesús Tripathi MD [address] [place] [address] PCP - General Internal Medicine 11/11/22 Ophthalmic Technician Apprentice Relationship Specialty Start Date End Date Jesús Tripathi MD [address] [place] [address] PCP - [employer] 07/06/20 Jesús Tripathi MD [address] [place] [address] PCP - General Internal Medicine 11/11/22 Ophthalmic Technician Apprentice Relationship Specialty Start Date End Date Jesús Tripathi MD [address] [place] [address] PCP - [employer] 07/06/20 Jesús Tripathi MD [address] [facility] [address] [place] [address] PCP - General Internal Medicine 11/11/22 Team [...] BE BASED ON THE PRIMARY CLINICAL RECORDS. [facility] [facility]. provides no warranty or guarantee of the accuracy or completeness of information in this document.
[2025-02-19] VITALS (18 sets, daily range): BP systolic 135–175; BP diastolic 67–82; PULSE 62–93; TEMP 36.4–36.8; O2SAT 95–98; BMI 25.1
[2025-02-19] MEDS: ZOLPIDEM TARTRATE 10 MG TABLET PO ×2 (00:44→23:05)
[2025-02-19] MEDS: METOPROLOL TARTRATE 25 MG TABLET PO ×3 (00:44→19:41)
[2025-02-19] MEDS: POTASSIUM CHLORIDE 10 MEQ ER TABLET 20 MEQ PO (00:44)
[2025-02-19 01:25] LABS: Thyroid Stimulating Hormone 1.617 uIU/mL (0.358-3.740)
[2025-02-19] MEDS: ACETAMINOPHEN 325 MG TABLET 650 MG PO (06:12)
--- NOTE | 2025-02-19 10:58 | P.HP_ITS ---
HPI H&P: HPI History of Present Illness Chief complaint: HYPERTENSION Narrative: Mrs. Tapia is a 79-year-old female who came to the emergency room complaining of blood pressure being high. Patient reported having headache yesterday. She checked her blood pressure and was noted to be elevated on multiple checks. She decided to come to the emergency room. Patient was found to have a blood pressure systolically of 206. The patient was given hydralazine intravenously. Subsequently patient had an episode of SVT requiring use of adenosine converting her back to sinus rhythm. Patient is doing well and feeling well today requesting to be discharged home. She denies any headaches, blurry vision, slurred speech, weakness or numbness involving her face or extremities. No prior history of stroke. No prior history of heart disease. Opioid HPI Opioid Management Most Recent Pain and Opioid Data: Last Pain Scale 5 Today, 06:12 Last Pain Assessment Today, 01:00 Last MAR Pain Assessment Today, 06:12 Last ORT Total Score 0 Today, 00:16 Last ORT Risk Category Low Risk Today, 00:16 Review of Systems ROS Status of ROS 10 or more systems reviewed and unremark able except as noted in history and below [facility] Medical History (Updated 02/19/25 @ 11:00 by Kanchan Clark MD) Hyperlipidemia ?E78.5 - Hyperlipidemia, unspecified (ICD-10) Social History (Updated 02/19/25 @ 01:05 by Manolo Hawkins RN) Within the past year, how often did you have a drink containing alcohol: 4 or more times a week Within the past year, how many standard drinks containing alcohol did you have on a typical day: 1 or 2 Within the past year, how often did you have six or more drinks on one occasion: never Total score: 0 Score interpretation: Questions 2 and 3 are 0. It can be assumed that the patient's drinking is below the recommended limits. However, please confirm the accuracy of the patient's alcohol intake over the last few months. 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 Known occupational exposures/hazards: No Highest level of school completed/degree received: Bachelor's degree Are you now , , , , never or living with a partner: In a typical week, how many times do you talk on the telephone with family, friends, or neighbors: once per week How often do you get together with friends or relatives: once per week Do you belong to any clubs or organizations such as jain groups unions, fraternal or athletic groups, or school groups: no Little interest or pleasure in doing things: not at all Feeling down, depressed, or hopeless: not at all Feel stressed/tense/nervous/anxious/difficulty sleeping: not at all Gender Identity: female Meds Home Medications and Allergies Home Medications ?Medication ?Instructions ?Recorded ?Confirmed ?Type rosuvastatin 20 mg tablet 20 mg PO DAILY 02/18/2502/03 History zolpidem 10 mg tablet 10 mg PO HS PRN sleep 02/19/25 History Allergies Allergy/AdvReac Type Severity Reaction Status Date / Time hydralazine AdvReac Severe SVT Verified 02/18/25 22:16 Exam Narrative Exam Narrative: [pt is awake and alert. oriented to place, time and person HEENT: [place] conjunctiva and NL buccal mucosa Neck: Supple, no tenderness Endocrine: No Thyromegaly. Vascular: No JVD or carotid bruit. Lymphatic: No cervical lymphadenopathy. Chest: CTA no DTP. Heart RRR, no extra sound or murmur. Abd: Soft, no tenderness, no rebound and no rigidity. Increase abd girth therefore clinically I could not exclude the possibility of intra abd mass or organomegaly. LE: No cyanosis or clubbing, no varices or edema. Neuro: A A O. Nl speech, comprehension and attention. Nl and symetrical motor and tone examination through out. []] Constitutional Vital Signs, click to edit/add: Last Vital Signs Temp 98.1 F 02/19/25 08:13 Pulse 72 02/19/25 10:05 Resp 18 02/19/25 08:13 BP 166/74 H 02/19/25 08:13 Pulse Ox 96 02/19/25 08:13 O2 Del Method Room Air 02/19/25 08:13 Results Labs Labs: Short CBC 02/18/25 Range/Units 19:35 WBC 6.5 (4.0-11.0) 10^3/uL Hgb 12.9 (12.0-16.0) g/dL Hct 38.5 (36.0-48.0) % Plt Count 292 (150-450) 10^3/uL BMP 02/18/25 19:35 Sodium 140 Potassium 3.6 Chloride 107 Carbon Dioxide 29.4 BUN 14.0 Creatinine 0.71 Glucose 119 H Calcium 9.2 Liver Function 02/18/25 Range/Units 19:35 Total Bilirubin 0.4 (0.2-1.0) mg/dL AST 17 (15-37) U/L ALT 22 (14-59) U/L Alkaline Phosphatase 92 (46-116) U/L Albumin 3.8 (3.4-5.0) g/dL Urine 02/18/25 Range/Units 19:36 Urine Color Lt. yellow (YELLOW) Urine Clarity Clear (CLEAR) Urine pH 5.5 (5.0-9.0) Ur Specific [place] <=1.005 A (1.005-1.025) Urine Protein Negative (NEG/TRACE) mg/dL Urine Glucose (UA) Negative (NEGATIVE) mg/dL Assessment and Plan Assessment and Plan (1) SVT (supraventricular tachycardia): (2) Hypertension: (3) Ischemia: (4) Shortened [place] interval: Plan Hypertensive urgency Patient was given hydralazine in the emergency room department. I started patient on metoprolol 25 mg twice daily. Continue to monitor and adjust BP meds to keep systolic between 130 and 145. Nonsustained SVT. Short [place] interval. I suspect that the patient may have [id number] Patient was given adenosine in the emergency room department. Back to sinus rhythm Continue metoprolol 25 mg twice daily. Requested TSH which came back negative Requested echocardiogram rule out cardiomyopathy or valvular disease. Requested cardiac evaluation. Abnormal EKG. ST depression in the inferior and lateral leads. Troponin is negative. Likely cardiac ischemia secondary to hypertensive urgency and SVT Patient has hyperlipidemia No clinical evidence of acute coronary syndrome however I suspect the patient may have underlying CAD May need to have ischemic evaluation. Echocardiogram is pending. Cardiology consultation. Continue beta-tory. Start patient on aspirin as well. Headaches, chest discomfort CT head came back negative for acute intracranial process CTA chest negative for PE, pneumothorax or dissection. Anxiety. Xanax as needed. DVT prophylax Lovenox
[2025-02-19] MEDS: ALPRAZOLAM 0.5 MG TABLET PO (11:26)
[2025-02-19] MEDS: ASPIRIN 325 MG TABLET PO (11:26)
[2025-02-19] MEDS: ENOXAPARIN SODIUM 40 MG/0.4 ML SYRINGE SUBQ (11:26)
[2025-02-19 12:34] LABS: Hematocrit 39.4 % (36.0-48.0); Hemoglobin 13.5 g/dL (12.0-16.0); Mean Corpuscular HGB Conc 34.3 g/dL (29.9-35.2); Mean Corpuscular Hemoglobin 31.7 pg (26.7-34.0); Mean Corpuscular Volume 92.5 fL (81.0-99.0); Platelet Count 333 10^3/uL (150-450); Red Blood Count 4.26 10^6/uL (4.20-5.40); White Blood Count 10.7 10^3/uL (4.0-11.0)
[2025-02-19 12:52] LABS: Anion Gap 10.6; Blood Urea Nitrogen 11.0 mg/dL (7.0-18.0); Calcium 9.1 mg/dL (8.5-10.1); Carbon Dioxide 25.7 mmol/L (21.0-32.0); Chloride 108 mmol/L (98-107); Estimated GFR (African America >60 (>=60 mL/min/1.73m^2); Estimated GFR (Non-African Ame >60 (>=60 mL/min/1.73m^2); Glucose 124 mg/dL (74-106); Potassium 3.3 mmol/L (3.5-5.1); Sodium 141 mmol/L (136-145)
[2025-02-19] MEDS: POTASSIUM CHLORIDE 10 MEQ ER TABLET 40 MEQ PO (17:33)
[2025-02-19] MEDS: ATORVASTATIN CALCIUM 40 MG TABLET PO (21:12)
[2025-02-20] VITALS (13 sets, daily range): BP systolic 130–170; BP diastolic 73–88; PULSE 54–104; TEMP 36.4–36.6; O2SAT 95–98
--- NOTE | 2025-02-20 00:29 | CA_ITS ---
Patient Name: WALTER ROACH MR#: [id number] : 1945 Exam Date: 02/20/2025 Ordering Doctor: ANANT ZHONG ECHOCARDIOGRAM REPORT PROCEDURE: CA ECHO DOPPLER COMPLETE INDICATIONS: SVT, hypertension COMPARISON: None. DESCRIPTION: COMPLETE ECHOCARDIOGRAM Real-time transthoracic echocardiography with 2D, M-mode, spectral and color flow Doppler performed. QUALITY: Technical quality was good. LEFT VENTRICLE: Normal chamber size. Proximal septal hypertrophy (sigmoid septum). Mild concentric hypertrophy. Normal systolic function. Estimated left ventricular ejection fraction is 55-60%. LV EF: Normal left ventricular ejection fraction, (>55%). DIASTOLIC: Diastolic function is indeterminate. ATRIAL SEPTUM: Visually appears intact. LEFT ATRIUM: Mild dilatation. RIGHT ATRIUM: Mild dilatation. RIGHT VENTRICLE: Normal chamber size. Normal right ventricular systolic function. TRICUSPID VALVE: Normal mobility and thickness. No stenosis with mild regurgitation. No evidence of pulmonary hypertension. RVSP 27 mmHg MITRAL VALVE: Normal mobility and thickness. No evidence of mitral valve stenosis. There is no mitral annular calcification. Trivial mitral regurgitation. AORTIC VALVE: Normal trileaflet appearance. Mildly calcified aortic valve. Normal leaflet mobility. No evidence of aortic valve stenosis. No aortic regurgitation. AORTIC ROOT: Normal diameter and appearance, measuring 3.2 cm. Ascending aorta is normal in size, measuring 2.6 cm. PULMONIC VALVE: Normal thickness and mobility. No stenosis. No regurgitation. PERICARDIUM: No evidence of pericardial effusion. IVC: Collapses with inspirations. IVC is normal in size. PLEURA: CONCLUSION: 1. Mild concentric left ventricular hypertrophy with normal systolic function. Estimated LVEF is 55 to 60%. 2. Normal right ventricular size and systolic function. 3. Mild biatrial dilatation. 4. No significant valvular dysfunction. 5. Normal right-sided pressures. Adult Echocardiography Procedure Report Left Ventricle LVEDD (3.7 - 5.6 cm): 3.01 cm LVESD (2.2 - 4.0 cm): 1.88 cm LVIVS thickness (0.6 - 1.2 cm): 1.42 cm LVPW thickness (0.5 - 1.0 cm): 1.06 cm e': 0.06 m/s E - e': 12.32 LVOT Max Gradient: 5.12 mm[Hg] LVOT Area (cm2): 1.13 m/s Peak Velocity (LVOT): 1.13 m/s Mean Velocity (LVOT): 0.75 m/s LVOT Diameter 2.34 cm Left Ventricular Ejection Fraction: 55-60 % Left Atrium LA Volume Index (2D A2C): 29.87 ml/m2 Left Atrium Systolic Dimension: 2.68 cm Mitral Valve MV E to A Ratio: 0.97 Mitral Valve A-Wave Peak Velocity: 0.70 m/s Mitral Valve E-Wave Peak Velocity: 0.68 m/s Right Ventricle Aorta AO Root Diam: 3.20 cm Ascending Ao Diam: 2.64 cm Aortic Valve AoV Area (Peak Ehsan): 3.51 cm2, 3.51 cm2 AoV Area (VTI): 3.77 cm2, 3.77 cm2 Peak Velocity(Antegrade Flow): 1.39 m/s Peak Gradient(Antegrade Flow): 7.69 mm[Hg] Mean Velocity(Antegrade Flow): 0.79 m/s Mean Gradient(Antegrade Flow): 3.22 mm[Hg] Velocity Time Integral: 30.47 cm Tricuspid Valve Peak Velocity (Regurgitant Flow): 2.47 m/s Pulmonic Valve Peak Velocity: 0.80 m/s Peak Gradient: 2.55 mm[Hg] Right Atrium Right Atrium Systolic Pressure: 45.12 ml, 45.12 ml Dictated by: Michael Horn M.D. on 02/20/2025 at 13:12 Approved by: Michael Horn M.D. on 02/20/2025 at 13:16
[2025-02-20 06:28] LABS: Anion Gap 10.8; Blood Urea Nitrogen 10.0 mg/dL (7.0-18.0); Calcium 9.3 mg/dL (8.5-10.1); Carbon Dioxide 28.8 mmol/L (21.0-32.0); Chloride 107 mmol/L (98-107); Estimated GFR (African America >60 (>=60 mL/min/1.73m^2); Estimated GFR (Non-African Ame >60 (>=60 mL/min/1.73m^2); Glucose 108 mg/dL (74-106); Potassium 3.6 mmol/L (3.5-5.1); Sodium 143 mmol/L (136-145)
--- NOTE | 2025-02-20 08:01 | ECG_ITS ---
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 Measurements Intervals [place] Rate: 57 P: 61 OR: 146 QRS: 41 QRSD: 91 T: 66 QT: 407 QTc: 399 Interpretive Statements SINUS BRADYCARDIA WITH SINUS ARRHYTHMIA ANTEROSEPTAL MYOCARDIAL INFARCTION [40+ ms Q WAVE IN V1-V4], OF INDETERMINATE AGE Compared to ECG 02/18/2025 21:14:49 Sinus tachycardia no longer present ST (T wave) deviation no longer present Possible ischemia no longer present Myocardial infarct finding still present Electronically Signed On 02-20-2025 17:49:48 EDT by MARY GOMEZ M.D.
[2025-02-20] MEDS: ASPIRIN 325 MG TABLET PO (08:10)
[2025-02-20] MEDS: ENOXAPARIN SODIUM 40 MG/0.4 ML SYRINGE SUBQ (08:10)
[2025-02-20] MEDS: METOPROLOL TARTRATE 25 MG TABLET PO (08:10)
[2025-02-20] MEDS: LISINOPRIL 10 MG TABLET PO (08:37)
[2025-02-20] MEDS: HYDROCHLOROTHIAZIDE 25 MG TABLET PO (08:37)
--- NOTE | 2025-02-20 09:15 | CM.NOTE ---
Rounds made with Dr. Clark, discussed with pt reason for admission and plan of care. Pt will have cardiac echo and cardiology consult for further recommendations. Possible discharge this evening after cardiology consult. Pt will be OBS status.
[2025-02-20] MEDS: ALPRAZOLAM 0.5 MG TABLET PO (09:39)
--- NOTE | 2025-02-20 10:25 | PM.PN ---
Progress Note: Subjective Subjective Interval history: Patient is feeling better. She denies any chest or abdominal pain. No nausea or vomiting. No dizziness or headaches Exam Narrative Exam Narrative: [pt is awake and alert. oriented to place, time and person HEENT: [place] conjunctiva and NL buccal mucosa Neck: Supple, no tenderness Endocrine: No Thyromegaly. Vascular: No JVD or carotid bruit. Lymphatic: No cervical lymphadenopathy. Chest: CTA no DTP. Heart RRR, no extra sound or murmur. Abd: Soft, no tenderness, no rebound and no rigidity. Increase abd girth therefore clinically I could not exclude the possibility of intra abd mass or organomegaly. LE: No cyanosis or clubbing, no varices or edema. Neuro: A A O. Nl speech, comprehension and attention. Nl and symetrical motor and tone examination through out. []] Constitutional Vital Signs, click to edit/add: Last Vital Signs Temp 97.9 F 02/20/25 07:34 Pulse 61 02/20/25 10:00 Resp 20 02/20/25 07:34 BP 170/85 H 02/20/25 07:34 Pulse Ox 96 02/20/25 07:34 O2 Del Method Room Air 02/20/25 07:34 Progress Note: Objective Labs Labs: Short CBC 02/19/25 Range/Units 12:28 WBC 10.7 (4.0-11.0) 10^3/uL Hgb 13.5 (12.0-16.0) g/dL Hct 39.4 (36.0-48.0) % Plt Count 333 (150-450) 10^3/uL BMP 02/19/25 02/20/25 12:28 06:01 Sodium 141 143 Potassium 3.3 L 3.6 Chloride 108 H 107 Carbon Dioxide 25.7 28.8 BUN 11.0 10.0 Creatinine 0.59 0.51 L Glucose 124 H 108 H Calcium 9.1 9.3 Progress Note: A&P Assessment and Plan (1) SVT (supraventricular tachycardia): (2) Hypertension: (3) Ischemia: (4) Shortened [place] interval: Plan Hypertensive urgency Patient was given hydralazine in the emergency room department. I started patient on metoprolol 25 mg twice daily. I added lisinopril HCTZ 04/29 daily. Continue to monitor and adjust BP meds to keep systolic between 130 and 145. Nonsustained SVT. Short [place] interval. No delta wave. I suspect that the patient may have Uxbym-Ragohujgn-Pzrit Patient was given adenosine in the emergency room department. Back to sinus rhythm Continue metoprolol 25 mg twice daily. Requested TSH which came back negative Requested echocardiogram rule out cardiomyopathy or valvular disease. Pending Requested cardiac evaluation. Pending Abnormal EKG. ST depression in the inferior and lateral leads. Troponin is negative. Likely cardiac ischemia secondary to hypertensive urgency and SVT Patient has hyperlipidemia No clinical evidence of acute coronary syndrome however I suspect the patient may have underlying CAD May need to have ischemic evaluation. Echocardiogram is pending. Cardiology consultation. Continue beta-tory. Start patient on aspirin as well. Added lisinopril HCTZ with better blood pressure control Headaches, chest discomfort CT head came back negative for acute intracranial process CTA chest negative for PE, pneumothorax or dissection. Anxiety. Xanax as needed. DVT prophylax Lovenox
--- NOTE | 2025-02-20 11:37 | CM.NOTE ---
Medicare Outpatient Observation Notice discussed with pt, pt verbalizes understanding and signs paper. Original given to pt and copy placed in pt's chart.
--- NOTE | 2025-02-20 18:10 | P.CACN_ITS ---
History of Present Illness History of Present Illness Consult date: 02/20/25 Requesting physician: Kanchan Clark Consult reason: chest pain and hypertension Chief complaint: HYPERTENSION Narrative: I am consulted due to chest pain, hypertension and SVT. This is a 79-year-old woman who presented to the emergency room with elevated blood pressure. She reports that she was at home and she started feeling headache and lightheadedness. She checked her blood pressure and it was rising continuously with a peak blood pressure systolic 165 mmHg. She presented herself to the emergency room. She was found to be significantly hypertensive. She was given hydralazine IV and following that she developed supraventricular tachycardia. She was given intravenous adenosine and reverted to sinus rhythm. She reports that during the events she felt significant chest pain. Since then she has maintained sinus rhythm and sinus tachycardia and no recurrence of chest pain. Her prior medical history significant for hyperlipidemia for which she takes rosuvastatin 20 mg daily. She reports that usually she does not have chest pain and does not feel palpitations. She has no shortness of breath on exertion and no lower extremity edema. Her cardiac troponins were negative x 3. Her EKG showed sinus tachycardia with evidence of old anterior myocardial infarction. I reviewed the strip from the emergency room and it showed SVT/possible atrial flutter. During tachycardia her ECG showed significant ST segment depressions in the inferior lateral leads. Subsequent EKGs shows sinus rhythm. Her echocardiogram today showed normal ventricular and valvular function and no significant elevation of right-sided pressures. There was evidence of mild concentric ventricular hypertrophy. Her renal function has been normal. Current blood pressure is reasonably good at. Review of Systems ROS Status of ROS 10 or more systems reviewed and unremark able except as noted in history and below Cardiovascular Reports: chest pain and palpitations; Denies: edema, swelling of feet/ankles or shortness of breath with exertion PFSH PFS Medical History (Updated 02/20/25 @ 18:16 by MARY GOMEZ) Hyperlipidemia ?E78.5 - Hyperlipidemia, unspecified (ICD-10) Social History (Updated 02/19/25 @ 01:05 by Manolo Hawkins RN) Within the past year, how often did you have a drink containing alcohol: 4 or more times a week Within the past year, how many standard drinks containing alcohol did you have on a typical day: 1 or 2 Within the past year, how often did you have six or more drinks on one occasion: never Total score: 0 Score interpretation: Questions 2 and 3 are 0. It can be assumed that the patient's drinking is below the recommended limits. However, please confirm the accuracy of the patient's alcohol intake over the last few months. 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 Known occupational exposures/hazards: No Highest level of school completed/degree received: Bachelor's degree Are you now , , , , never or living with a partner: In a typical week, how many times do you talk on the telephone with family, friends, or neighbors: once per week How often do you get together with friends or relatives: once per week Do you belong to any clubs or organizations such as anabaptism groups unions, [employer] or athletic groups, or school groups: no Little interest or pleasure in doing things: not at all Feeling down, depressed, or hopeless: not at all Feel stressed/tense/nervous/anxious/difficulty sleeping: not at all Gender Identity: female Meds Home Medications and Allergies Home Medications ?Medication ?Instructions ?Recorded ?Confirmed ?Type rosuvastatin 20 mg tablet 20 mg PO DAILY 02/18/2502/03 History zolpidem 10 mg tablet 10 mg PO HS PRN sleep 02/19/25 History aspirin 81 mg tablet 81 mg PO DAILY #60 tabs 02/03 02/27 Rx latanoprost 0.005 % eye drops 1 drp ophthalmic (eye) . QHS 02/20/25 02/20/25 History lisinopril 10 1 tab PO DAILY #60 tabs 02/03 02/27 Rx mg-hydrochlorothiazide 12.5 mg tablet metoprolol succinate 50 mg 50 mg PO DAILY #60 tabs Rx tablet,extended release 24 hr (Toprol XL) tramadol 50 mg tablet 50 mg PO Q6H PRN severe pain 02/20/25 02/20/25 History (scale score 7-10) Allergies Allergy/AdvReac Type Severity Reaction Status Date / Time hydralazine AdvReac Severe SVT Verified 02/18/25 22:16 Exam Constitutional Vital Signs, click to edit/add: Last Vital Signs Temp 97.6 F 02/20/25 16:00 Pulse 88 02/20/25 18:00 Resp 20 02/20/25 16:00 BP 130/76 02/20/25 16:00 Pulse Ox 96 02/20/25 16:00 O2 Del Method Room Air 02/20/25 16:00 Common normals: no apparent distress, average body habitus, oriented x3, no l imitations, healthy appearing, alert and well nourished [facility] Common normals: normocephalic Eye Common normals: conjunctivae normal and no scleral icterus Chest Common normals: inspection of chest normal Chest: symmetrical chest wall rise Respiratory Common normals: normal respiratory effort, no retractions, no use of accessory muscles and clear to auscultation bilaterally Cardio Common normals: no JVD, regular rate, regular rhythm, S1 normal heart sound, S2 normal heart sound, no gallops, no murmurs and peripheral pulses 2+ throughout GI Common normals: Normal to inspection, nondistended, normoactive bowel sounds present Extremity Common normals: no clubbing, cyanosis or edema and no pedal edema Neuro Common normals: oriented x3, moves all extremities, no focal motor deficits and no sensory deficits noted Sensorium/orientation: awake, alert, oriented to person, oriented to place and oriented to time Psych Memory/cognition: memory grossly intact Insight: insight good Judgement: judgment good Results Labs and Meds Lab results: Comprehensive Metabolic Panel 02/20/25 Range/Units 06:01 Sodium 143 (136-145) mmol/L Potassium 3.6 (3.5-5.1) mmol/L Chloride 107 (98-107) mmol/L Carbon Dioxide 28.8 (21.0-32.0) mmol/L BUN 10.0 (7.0-18.0) mg/dL Creatinine 0.51 L (0.55-1.02) mg/dL Glucose 108 H (74-106) mg/dL Calcium 9.3 (8.5-10.1) mg/dL Intake and Output 02/20/25 02/20/25 02/20/25 07:59 15:59 23:59 Intake Total 240 / 240 Balance 240 / 240 Intake: Oral 240 / 240 Other: # Voids 1 Assessment and Plan Assessment and Plan (1) SVT (supraventricular tachycardia): (2) Hypertension: Qualifiers: Hypertension type: primary hypertension Qualified Code(s): I10 - Es sential (primary) hypertension (3) Other chest pain: (4) Abnormal ECG: (5) Ischemia: (6) Shortened [place] interval: Plan 1. Supraventricular tachycardia: Review of the EKG strip emergency room raises the possibility of atrial flutter. This happened after she was given intravenous hydralazine. It could have been reflex tachycardia from the hydralazine. There has been no recurrence during the hospital stay. I recommend beta-tory therapy continue current metoprolol, and check an event monitor for 30 days after discharge. Meanwhile continue aspirin therapy. 2. Hypertension: Her blood pressure is currently reasonably controlled on current metoprolol, lisinopril, hydrochlorothiazide. I recommend continuing the same. 3. Chest pain, abnormal ECG: This happened initially during the hospitalization and coincided with the tachycardia. During tachycardia her ECG showed ischemic changes with ST depressions in the inferior lateral leads. I recommend that she undergoes a stress test with nuclear perfusion imaging to quantify the myocardial ischemia. She was adamant that she does not want to stay in the hospital and get that done while admitted as she has to go because she has left her dog alone at home. I recommend arranging for this as an outpatient as soon as possible. Meanwhile continue aspirin and statin therapy. We can see her in follow-up in the cardiology clinic at the [facility] after discharge.
--- NOTE | 2025-02-21 10:04 | CM.NOTE ---
Called and spoke with Raegan from [facility] Cardiology clinic, she will call patient for outpatient Holter and to set up stress test prior to f/u with cardiology. Raegan will call Case Management back to verify pt is scheduled.
--- NOTE | 2025-02-21 10:31 | P.DS_ITS ---
DS: Providers Provider Date of admission: 02/18/25 23:44 Primary care physician: KAMILA QUESADA Consults: 02/19/25 10:56 Consult to Cardiology Routine Reason for consultation: Transient SVT, ST depression suspect ischemia DS: Diagnosis Discharge Diagnosis (1) SVT (supraventricular tachycardia): (2) Hypertension: Qualifiers: Hypertension type: primary hypertension Qualified Code(s): I10 - Essential (primary) hypertension (3) Other chest pain: (4) Abnormal ECG: (5) Ischemia: (6) Shortened AR interval: Plan As listed above and others that are not listed DS: Summary Hospital Course Hospital Course: Mrs. Tapia is a 79-year-old female who came to the emergency room with a complaint that her blood pressure is high. Patient was just recently bought a blood pressure machine at home. She does not feel well and started measuring her blood pressure. She was found to have the following: Hypertensive urgency Patient was given hydralazine in the emergency room department. I started patient on metoprolol 25 mg twice daily. I added lisinopril HCTZ 10/ daily. Continue to monitor and adjust BP meds to keep systolic between 130 and 145. Patient is to follow-up with the cardiology team and PCP. Further outpatient adjustment may be needed. Nonsustained SVT. Short AR interval. No delta wave. I suspect that the patient may have Pkcul-Krhrbyqur-Nrgud Patient was given adenosine in the emergency room department. Back to sinus rhythm Continue metoprolol 25 mg twice daily. Requested TSH which came back negative Requested echocardiogram rule out cardiomyopathy or valvular disease. That came back unremarkable Requested cardiac evaluation. Patient was seen by oil rig driller recommended outpatient Holter monitor. We called cardiology outpatient ground nuclear weapons assembly officer Abimbola who will be arranging for this to be done next week Patient will be discharged home on Toprol 50 mg daily Abnormal EKG. ST depression in the inferior and lateral leads. Troponin is negative. Likely cardiac ischemia secondary to hypertensive urgency and SVT Patient has hyperlipidemia No clinical evidence of acute coronary syndrome however I suspect the patient may have underlying CAD May need to have ischemic evaluation. Echocardiogram is pending. Cardiology consultation. Continue beta-tory. Start patient on aspirin as well. Added lisinopril HCTZ with better blood pressure control Patient was seen by oil rig driller who cleared the patient to go home and have outpatient stress test. Patient declined to have an inpatient stress test as documented by him. We called the cardiology office and spoke with the ground nuclear weapons assembly officer Melissa who will be arranging for stress test to be done next week. Patient will be discharged home on aspirin and Toprol as well as ISAAC inhibitor. Headaches, chest discomfort CT head came back negative for acute intracranial process CTA chest negative for PE, pneumothorax or dissection. Anxiety. Xanax as needed. DVT prophylax Lovenox Patient has few medical issues as listed above and others that are not listed. All appear to be stable. Patient is adamant about going home on the evening of 02/20. She is not willing to stay any longer for additional monitoring, diagnostic or therapeutic intervention. At this time, I do not have any clear or strong clinical justification to extend inpatient hospitalization against her will and desire to be discharged home. Patient however will require close and frequent monitoring as well as additional work-up, investigation and therapeutic intervention that could take place from this point on post discharge. That is to prevent relapse, decompensation, rehospitalization and other medical implications. Patient will be scheduled to have a Holter monitor and stress test by Cardiology: surveillance manager Abimbola I instructed patient to ask her primary care doctor to obtain [facility] record entirely to address abnormalities seen on labs and imaging that I have and have not addressed during this hospitalization, follow-up on pending blood work, imaging and pathology is if available and to follow-up on needed medical care in the outpatient setting. Time Spent with Patient Time attestation: Total time spent providing and/or coordinating discharge services: Exam Constitutional Vital Signs, click to edit/add: Last Vital Signs Temp 97.6 F 02/20/25 16:00 Pulse 88 02/20/25 18:00 Resp 20 02/20/25 16:00 BP 130/76 02/20/25 16:00 Pulse Ox 96 02/20/25 16:00 O2 Del Method Room Air 02/20/25 16:00 Discharge Plan Discharge Disposition: Home, Self-Care Discharge Medications: New metoprolol succinate [Toprol XL] 50 mg tablet extended release 24 hr 50 mg PO DAILY Qty: 60 2RF lisinopril-hydrochlorothiazide 10-12.5 mg tablet 1 tab PO DAILY Qty: 60 2RF aspirin 81 mg tablet 81 mg PO DAILY Qty: 60 2RF Continued rosuvastatin 20 mg tablet 20 mg PO DAILY zolpidem 10 mg tablet 10 mg PO HS PRN (Reason: sleep) latanoprost 0.005 % drops 1 drp OPHTHALMIC (EYE) .[facility] Rx Instructions: BOTH EYES tramadol 50 mg tablet 50 mg PO Q6H PRN (Reason: severe pain (scale score 7-10)) Print Language: Polish Patient Instructions: Metoprolol (By mouth), Lisinopril/Hydrochlorothiazide (By mouth), Hypertension (DC) Forms: Portal Instructions Follow Up Appointments: Thu. 02/27 @ 10:30am with Tracee Miles NP [phone] Th. 03/09 @ 2:40pm with [facility] [phone] Cardiology recommends outpatient stress test and 30 day event monitor Discharge Date/Time: 02/20/25 19:14
--- NOTE | 2025-02-21 15:15 | CM.DCFOLLOWU ---
1st attempt 02/21/25, no answer
== END 2025-02-20 19:14 | disposition home or self-care (01) ==
LOC: ER 23:22 → MS 23:47
PROVIDERS: Nurse Practitioner Family; Admitting Provider Internal Medicine; Emergency Provider Internal Medicine; PCP Internal Medicine; Visit Provider Internal Medicine
DX: I47.19 Other supraventricular tachycardia (principal); I16.0 Hypertensive urgency; R94.31 Abnormal electrocardiogram [ECG] [EKG]; E78.5 Hyperlipidemia, unspecified; I99.8 Other disorder of circulatory system; R51.9 Headache, unspecified; R07.89 Other chest pain; R42 Dizziness and giddiness; F41.9 Anxiety disorder, unspecified
CPT/HCPCS: 36415; 70450; 71045; 71275; 80048; 80053; 81001; 83735; 84443; 84484; 85025; 85027; 93005; 93306; 96372; 96374; 96375; 99285; G0378; J0360; J1650; Q9967

== ENCOUNTER 2025-03-10 06:41 | Outpatient (OUT) | payer MEDICARE, OTHER, SELFPAY ==
--- NOTE | 2025-03-10 | NM_ITS ---
Patient Name: WALTER ROACH MR#: [id number] : 1945 Exam Date: 03/10/2025 Ordering Doctor: DR MARY GOMEZ M.D. RADIOLOGY REPORT PROCEDURE: NM INA PERF SPECT REST STR COMPARISON: None. INDICATIONS: OTHER CHEST PAIN, ABNORMAL EKG TECHNIQUE: Exam Description: Stress/Rest one day protocol gated SPECT Rest Imagin.3 mCi Tc-99m Cardiolite IV on 03/10/2025 Stress Imaging 31.0 mCi Tc-99m Cardiolite IV on 03/10/2025 Exercise Protocol: Germain Heart Rate (bpm): Rest: 65 Max: 122 PMHR: 86 Blood Pressure: Rest: 134/62 Max: 158/78 Exercise Time: Minutes: 4 Seconds: 24 Stage Reached: Stage: 2 Mets 7.0 Symptoms: Rest and peak stress ECG findings were pending, and the exercise portion of the study was pending per attending physician [facility]. For more details, please see separate cardiac stress test report. FINDINGS: QUALITY OF STUDY: Good PERFUSION DEFECT: LOCATION: Apical SIZE: Small SEVERITY: Mild TYPE: Fixed likely due to physiological apical thinning WALL MOTION: Normal wall motion LV SIZE: 61 mL. TID / TCD: 0.9 LVEF: Calculated EF 88%. SUMMARY: Myocardial perfusion imaging study is normal CONCLUSION: Myocardial perfusion is normal with soft tissue attenuation Hyperdynamic global left ventricular systolic function; EF 88% No significant transient dilatation Dictated by: Bobby Ivory M.D. on 03/10/2025 at 16:30 Approved by: Bobby Ivory M.D. on 03/10/2025 at 16:36
--- OUTSIDE RECORDS SUMMARY | 2025-03-10 06:44 | XMS_ITS | CCD ---
Author Organization [facility] Care Team Providers Care Ict Help Desk Officer Name Role Phone DR JESÚS TRIPATHI Consulting Unavailable DIPAK, DR TREVIÑO Attending Unavailable DIPAK, DR TREVIÑO Admitting Unavailable DIPAK, DR TREVIÑO Primary Care Unavailable LAMAR, DR WEI Ferro Consulting Jesús Medina MD Unavailable Jesús Tripathi MD Primary Care Provider Jesús Tripathi II Primary Care Provider [phone] Kiet Dawkins DO Attending Provider Kiet Dawkins Attending Unavailable Kiet Dawkins Admitting Unavailable Jesús Tripathi Primary Care Unavailable TRACEE WOMACK Attending Unavailable BLACKSTONJHOANA Attending Unavailable DIPAK JESÚS B Referring Unavailable KELBLEY, JOHN Attending Unavailable TRIPATHI JESÚS B Referring Unavailable BLACKSTONJHOANA Attending Unavailable TRIPATHI, JESÚS B Referring Unavailable KELBLEY, JOHN Attending Unavailable TRIPATHI, JESÚS B Referring Unavailable KELBLEY, JOHN Attending Unavailable TRIPATHI, JESÚS B Referring Unavailable VISCIKIET Attending Unavailable JHOANA SILVEIRA Attending Unavailable TRIPATHI JESÚS B Referring Unavailable TORIE MCLAIN Attending [...] Attending Unavailable TRIPATHI JESÚS B Attending Unavailable APLING, BINTA B Attending Unavailable TRIPATHI JESÚS B Referring Unavailable APLING, BINTA B Referring Unavailable APLING, BINTA B Attending Unavailable KELBLEY, JOHN Attending Unavailable TRIPATHI, JESÚS B Referring Unavailable TRIPATHI, JESÚS B Attending Unavailable TRACEE WOMACK Attending Unavailable TRACEE WOMACK Attending Unavailable Allergies Allergy Classification Reported Allergen(s) Allergy Type Date of Onset Reaction(s) Facility (4 sources) hydrALAZINE Drug Allergy 02-27-2025 [facility] (4 sources) hydrOXYzine Drug Allergy 02-27-2025 Other [facility] (2 sources) busPIRone Drug Allergy 02-28-2025 [facility] Medications Current Medications Medication Drug Class(es) Dates Sig (Normalized) Sig (Original) busPIRone hydrochloride 10 mg oral tablet (4 sources) Start: 02-27-2025 End: 02-28-2025 take 1 tablet by mouth in the morning busPIRone (Buspar) 10 MG tablet Indications: Anxiety about health Take 1 tablet (10 mg) by mouth in the morning and 1 tablet (10 mg) before bedtime. 60 tablet 2 02/27/2025 02/28/2025 Discontinued (Side effects) hydroCHLOROthiazide 12.5 mg / lisinopril 10 mg oral tablet (6 sources) Thiazide Diuretic, Angiotensin Converting Enzyme Inhibitor Start: 02-20-2025 End: 02-28-2025 take 1 tablet by mouth in the morning lisinopril-hydro CHLOROthiazide 10-12.5 MG tablet Take 1 tablet by mouth in the morning. 02/20/2025 02/28/2025 Discontinued (Side effects) hydrOXYzine hydrochloride 25 mg oral tablet (4 sources) Antihistamine Start: 02-25-2025 End: 02-27-2025 take 1 tablet by mouth every eight hours for anxiety hydrOXYzine HCl (Atarax) 25 MG tablet Indications: Anxiety about health Take 1 tablet (25 mg) by mouth every 8 (eight) hours if needed for anxiety for up to 2 days 6 tablet 02/25/2025 02/27/2025 Discontinued (Side effects) ibuprofen 800 mg oral tablet (3 sources) [...] solution (20 sources) Prostaglandin Analog Start: 11-24-2023 take 1 drop(s) into the eye(s) at bedtime latanoprost (Xalatan) 0.005 % ophthalmic solution Administer 1 drop into both eyes at bedtime 11/24/2023 Active lisinopril 10 mg oral tablet (2 sources) Angiotensin Converting Enzyme Inhibitor Start: 02-28-2025 take 1 tablet by mouth once daily lisinopril 10 MG tablet Indications: Primary hypertension Take 1 tablet (10 mg) by mouth Daily 30 tablet 02/28/2025 Active Start: 02-28-2025 take 1 tablet by esme th once daily lisinopril 10 MG tablet Indications: Primary hypertension Take 1 tablet (10 mg) by mouth Daily 30 tablet 02/28/2025 Active LORazepam 0.5 mg oral tablet (2 sources) Benzodiazepine Start: 02-28-2025 End: 03-15-2025 take 1 tablet by mouth twice daily as needed for anxiety LORazepam (Ativan) 0.5 MG tablet Indications: Anxiety about health Take 1 tablet (0.5 mg) by mouth 2 (two) times a day as needed for anxiety for up to 15 days 30 tablet 02/28/2025 03/15/2025 Active 24 hr metoprolol succinate 50 mg extended release oral tablet (6 sources) beta-Adrenergic Mick Start: 02-20-2025 take 1 tablet by mouth every twenty-four hours in the morning metoprolol succinate XL (Toprol-XL) 50 MG 24 hr tablet Take 1 tablet by mouth in the morning. 02/20/2025 Active omeprazole 40 mg delayed release oral capsule (20 sources) Proton Pump Inhibitor Start: 03-25-2024 End: 04-24-2024 take 1 capsule by mouth before mealtime omeprazole (PriLOSEC) [address] capsule Indications: Dyspepsia Take 1 capsule (40 mg) by mouth in the morning. Take before meals. Do not crush or chew.. 30 capsule 03/25/2024 Active ondansetron 4 mg disintegrating oral tablet (2 sources) Serotonin-3 Receptor Antagonist Start: 02-27-2025 End: 03-06-2025 take 1 tablet by mouth every eight hours as needed for nausea and vomiting and nausea and nausea ondansetron ODT (Zofran-ODT) 4 MG disintegrating tablet Indications: Nausea Take 1 tablet (4 mg) by mouth every 8 (eight) hours if needed for nausea or vomiting for up to 7 days 21 tablet 02/27/2025 03/06/2025 Active predniSONE 20 mg oral tablet (2 [...] 04-30-2023 04-30-2023 Chronic Miscellaneous mental health disorders (4 sources) Primary insomnia; Translations: [Primary insomnia] 01-30-2025 Chronic Miscellaneous mental health disorders (9 sources) Anxiety about body function or health; Translations: [Other symptoms and signs involving emotional state] Onset: 02-27-2025 02-25-2025 Episodic Osteoarthritis (20 sources) Osteoarthritis of multiple joints [...] Onset: 04-30-2023 04-30-2023 Chronic Residual codes; unclassified (2 sources) Menopause present; [...] head] Onset: 04-30-2023 Resolved: 01-30-2025 04-30-2023 Episodic Residual codes; unclassified (20 sources) Insomnia; Translations: [Insomnia, unspecified] Onset: 04-30-2023 04-30-2023 Episodic Results Test Name Value Interpretation Reference Range Facility 36on 03-02-2025 36 Patient returned bryan ne call, patient states she would like to hold off on adding the amlodipine until she sees cardiology. Patient states her blood pressures have been around 107. Advised patient to keep a log of her blood pressure and bring it with her to her appointment. Phone call from patient, patient states she has been taking her blood pressure last night and today and they are in the high 140's. Patient would like [facility] [place] 36 LM for patient to return my call. [facility] 36on 02-27-2025 36 This patient was see n by Dr. Horn as inpatient consult on 02/20/2025. He ordered event monitor and stress test. Monitor was placed in our office on 02/22/2025 and patient spoke with me about her concerns with the metoprolol and lisinopril. Message was sent to Dr. Horn that day. RAFAEL [facility] 36on 02-24-2025 36 Phone call from patient. Patient states she was in the hospital last week. Patient states she seen Dr. Horn who discharged her and advised her to follow up with [facility]. Patient is scheduled with Yin on 04/04/2025. Patient states the hospitalitis prescribed her metoprolol and lisinopril . Patient states she has had nausea, diarrhea, headache, fatigue and just not feeling well since she started taking the medication. Advised patient to go to the ER. Patient states I' am not going to do that. Advised patient I have no way of contacting (hospitalitis) in reference to the medication. Encouraged patient again to go to there ER. Patient refused. Advised patient to call PCP. Patient states she will try PCP. Please advise. [facility] Telephoneon 02-24-2025 Telephone [phone] Albertina Roach P 1945 F Date Provider Department Center 02/24/2025 GERDA ALMANZAR [facility] No family history on file [facility] 36on 02-22-2025 36 Patient stopped by t he office to have event monitor put on s/p [facility] admission. You saw her as inpatient consult on 02/20/2025. She is currently on metoprolol succinate 50mg daily and lisinopril-hydrochlorot hiazide 10-12.h mg daily. Patient said she takes both of those in the AM and BP is good throughout the day, but in the evening she's been going up to around 160 systolic. Linda wasn't able to tell me what her HR's have been. She wanted to know if she needed to increase the dose of one and/or both of her medications. Should she maybe take metoprolol in the evening? Or would you like to make a change? She's scheduled for follow up on 04/04 s/p stress test and 30 day event monitor. Please advise. Thanks. Normal [facility] Telephoneon 02-22-2025 Telephone [phone] Albertina Roach P 1945 F Date Provider Department Center 02/22/2025 Delvin8-MELANIETIMO KAVITA [facility] No family history on file Normal [facility] MM screening mammo BI w/CADo n 02-07-2025 MM screening mammo BI w/CAD [facility] [address] [place] [address] Mammography Report Signed Patient: Alena Roach MR#: [id number] 31 : 1945 Acct:[id number] Age/Sex: 79 / F Adm Date: 02/07/25 Loc: PA Room: Type: [facility] Attending Dr: Kiet Dawkins DO Ordering Provider: Kiet Dawkins DO Date of Service: 02/07/25 Procedure(s): MM screening mammo BI w/CAD Accession Number(s): ([id number]) MM/MM screening mammo BI w/CAD: SCREENING Copies [...] Quinn M.D. 02/07/2025 4:20 PM Dictation Location: [facility] Dictated By: Deshawn Quinn II, MD 02/07/25 1613 Signed By: 02/07/25 1620 Normal [facility] Mammography reportOrdered By : Deshawn Quinn on 02-07-2025 Diagnostic imaging study [facility] [address] [place] [address] Mammography Report Signed Patient: Alena Roach MR#: [id number] : 1945 Acct:[id number] Age/Sex: 79 / F Adm Date: 5 Loc: PA Room: Type: [facility] Attending Dr: Kiet Dawkins DO Ordering Provider: Kiet Dawkins DO Date of Service: 02/07/25 Procedure(s): MM screening mammo BI w/CAD Accession Number(s): ([id number]) MM/MM screening mammo BI w/CAD: SCREENING Copies [...] Quinn M.D. 02/07/2025 4:20 PM Dictation Location: [facility] Dictated By: Deshawn Quinn II, MD 02/07/25 1613 Signed By: 02/07/25 1620 [facility] Work Phone: No Panel Informationon 12-09 [...] and draped in the usual sterile fashion. [facility] 12/09/2024 11:25 AM L Inj/Asp: [...] and draped in the usual sterile fashion. [facility] No Panel Informationon 06-20 Binta Gannon NP [...] discussed. Consent was given by the patient. appening No Panel Informationon 06-13 Binta Gannon NP 06/14/2024 12:31 PM L Inj/Asp: L knee on 06/13/2024 9:54 AM Indications: pain Details: 20 G needle, anterolateral approach Medications: 40 mg methylPREDNISolone acetate 40 MG/ML Procedure, treatment alternatives, risks and benefits explained, specific risks discussed. Consent was given by the patient. appening Radiology Study observation (narrative) [employer] XR Knee - left 1 or 2 Viewso n 06-13-2024 Imaging Result: AP and lateral views of left knee showed severe varus deformity with nrec-rr-cllw articulation to the medial joint line, flattening [...] joint disease left knee with varus deformity appening XR Knee - right 1 or 2 Views on 06-13-2024 Imaging Result: X-rays AP and lateral of right knee showed severe varus deformity with uxzt-sl-mewy articulation to the medial joint line. There is flattening of the articular surfaces medially to the tibia plateau and femoral condyle. There is marginal osteophytic formation and subchondral sclerosis noted medially and the patellofemoral joint. There is no evidence of fracture or dislocation. Bony structures viewed showed appropriate ossification. [facility] XR Knee - right 1 or 2 Views Ordered By: Jr. Kenny on 06-13-2024 [facility] Work Phone: CBC (INCLUDES DIFF/PLT)on Basophils (Bld) [#/Vol] 0.028 10*3/uL Normal 0-200 [facility] Comment on above: Performed By: #### 7 503, 69406, 2435 #### [facility] [address], [address] [place] [id number] Quality Supervisor: Devan Colbert MD Basophils/100 WBC (Bld) 0.5 % Normal [facility] Comment on above: Performed By: #### 7 600, 82072, 6399 #### [facility] of [address], [address] [place] [address] Quality Supervisor: Devan Colbert MD Eosinophils (Bld) [#/Vol] 0.112 10*3/uL Normal 15-500 [facility] Comment on above: Performed By: #### 7 600, 63428, 6399 #### [facility] of [place] [address] Quality Supervisor: Devan Colbert MD Eosinophils/100 WBC (Bld) 2.0 % Normal [facility] Comment on above: Performed By: #### 7 600, 50602, 6399 #### [facility] of [place] [address] Quality Supervisor: Devan Colbert MD Erythrocyte distribution width (RBC) [Ratio] 12.2 % Normal 11.0-15.0 [facility] Comment on above: Performed By: #### 7 600, 13935, 6399 #### [facility] of [place] [address] Quality Supervisor: Devan Colbert MD Hematocrit (Bld) [Volume fraction] 38.2 % Normal 35.0-45.0 [facility] Comment on above: Performed By: #### 7 600, 40311, 6399 #### [facility] of [place] [address] Quality Supervisor: Devan Colbert MD Hemoglobin (Bld) [Mass/Vol] 12.6 g/dL Normal 11.7-15.5 [facility] Comment on above: Performed By: #### 7 600, 57312, 6399 #### [facility] of [place] [address] Quality Supervisor: Devan Colbert MD Lymphocytes (Bld) [#/Vol] 1.674 10*3/uL Normal 850-3900 [facility] Comment on above: Performed By: #### 7 600, 40866, 6399 #### [facility] [place] [address] Quality Supervisor: Devan Colbert MD Lymphocytes/100 WBC (Bld) 29.9 % Normal [facility] Comment on above: Performed By: #### 7 600, , 63 #### [facility] [place] [address] Quality Supervisor: Devan Colbert MD MCH (RBC) [Entitic mass] 31.0 pg Normal 27.0-33.0 [facility] Comment on above: Performed By: #### 7 600, , 6398 #### [facility] [place] [address] Quality Supervisor: Devan Colbert MD MCHC (RBC) [Mass/Vol] 33.0 [...] clinical condition. Performed By: #### 7 600, 10388, 75 #### [facility] [place] [address] Quality Supervisor: Devan Colbert MD MCV (RBC) [Entitic vol] 94.1 fL Normal 80.0-100.0 [facility] Comment on above: Performed By: #### 7 600, 85419, 11 #### [facility] [place] [address] Quality Supervisor: Devan Colbert MD Monocytes (Bld) [#/Vol] 0.526 10*3/uL Normal 200-950 [facility] Comment on above: Performed By: #### 7 600, 07876, 36 #### [facility] [place] [address] Quality Supervisor: Devan Colbert MD Monocytes/100 WBC (Bld) 9.4 % Normal [facility] Comment on above: Performed By: #### 7 600, 81774, 6399 #### [facility] of [place] [address] Quality Supervisor: Devan Colbert MD Neutrophils (Bld) [#/Vol] 3.259 10*3/uL Normal 6677-6348 [facility] Comment on above: Performed By: #### 7 600, 36155, 6399 #### [facility] of [place] [address] Quality Supervisor: Devan Colbert MD Neutrophils/100 WBC (Bld) 58.2 % Normal [facility] Comment on above: Performed By: #### 7 600, 98311, 6399 #### [facility] of [place] [address] Quality Supervisor: Devan Colbert MD Platelet mean volume (Bld) [Entitic vol] 9.9 fL Normal 7.5-12.5 [facility] Comment on above: Performed By: #### 7 600, 80112, 6399 #### [facility] [place] [address] Quality Supervisor: Devan Colbert MD Platelets (Bld) [#/Vol] 332 10*3/uL Normal 140-400 [facility] Comment on above: Performed By: #### 7 600, 02981, 6399 #### [facility] of [place] [address] Quality Supervisor: Devan Colbert MD RBC (Bld) [#/Vol] 4.06 10*6/uL Normal 3.80-5.10 [facility] Comment on above: Performed By: #### 7 600, 55285, 6399 #### [facility] of [place] [address] Quality Supervisor: Devan Colbert MD WBC (Bld) [#/Vol] 5.6 10*3/uL Normal 3.8-10.8 [facility] Comment on above: Performed By: #### 7 600, 43817, 6399 #### [facility] of [address], [address] [place] [address] Quality Supervisor: Devan Colbert MD [facility] 06-07-2024 Albumin [Mass/Vol] 4.2 g/dL Normal 3.6-5.1 [facility] Comment on above: Performed By: #### 7 600, 39413, 6399 #### [facility] of [address], [address] [place] [address] Quality Supervisor: Devan Colbert MD Albumin/Globulin [Mass ratio] 2.0 {ratio} Normal 1.0-2.5 [facility] Comment on above: Performed By: #### 7 600, 46815, 6399 #### [facility] of [place] [address] Quality Supervisor: Devan Colbert MD ALP [Catalytic activity/Vol] 64 U/L Normal 37-153 [facility] Comment on above: Performed By: #### 7 600, 09196, 6399 #### [facility] of [place] [address] Quality Supervisor: Devan Colbert MD ALT [Catalytic activity/Vol] 14 U/L Normal 6-29 [facility] Comment on above: Performed By: #### 7 600, 34284, 6399 #### [facility] of [place] [address] Quality Supervisor: Devan Colbert MD AST [Catalytic activity/Vol] 21 U/L Normal 10-35 [facility] Comment on above: Performed By: #### 7 600, 86042, 6399 #### [facility] of [place] [address] Quality Supervisor: Devan Colbert MD Bilirubin [Mass/Vol] 0.5 mg/dL Normal 0.2-1.2 [facility] Comment on above: Performed By: #### 7 600, 83795, 6399 #### [facility] of [address] [place] [address] Quality Supervisor: Devan Colbert MD Calcium [Mass/Vol] 9.3 mg/dL Normal 8.6-10.4 [facility] Comment on above: Performed By: #### 7 600, 16622, 6399 #### [facility] of [address], [address] [place] [address] Quality Supervisor: Devan Colbert MD Chloride [Moles/Vol] 104 mmol/L Normal 98-110 [facility] Comment on above: Performed By: #### 7 600, 87633, 6399 #### [facility] of [place] [address] Quality Supervisor: Devan Colbert MD CO2 [Moles/Vol] 29 mmol/L Normal 20-32 [facility] Comment on above: Performed By: #### 7 600, 57414, 6399 #### [facility] of [address], [address] [place] [address] Quality Supervisor: Devan Colbert MD Creatinine [Mass/Vol] 0.53 mg/dL Low 0.60-1.00 [facility] Comment on above: Performed By: #### 7 600, 10887, 6399 #### [facility] of [place] [address] Quality Supervisor: Devan Colbert MD GFR/1.73 sq M.predicted among non-blacks MDRD (S/P/Bld) [Vol rate/Area] 95 mL/min/{1.73_m2} Normal > OR = 60 [facility] Comment on above: Performed By: #### 7 600, 34297, 6399 #### [facility] of [place] [address] Quality Supervisor: Devan Colbert MD Globulin (S) [Mass/Vol] 2.1 g/dL Normal 1.9-3.7 [facility] Comment on above: Performed By: #### 7 600, 77037, 6399 #### [facility] of [address], [address] [place] [address] Quality Supervisor: Devan Colbert MD Glucose [Mass/Vol] 93 mg/dL Normal 65-99 [facility] Comment on above: Result Comment: Fasting reference interval Performed By: #### 7 600, 97163, 6399 #### [facility] [place] [address] Quality Supervisor: Devan Colbert MD Potassium [Moles/Vol] 4.4 mmol/L Normal 3.5-5.3 [facility] Comment on above: Performed By: #### 7 600, 75577, 6399 #### [facility] [place] [address] Quality Supervisor: Devan Colbert MD Protein [Mass/Vol] 6.3 g/dL Normal 6.1-8.1 [facility] Comment on above: Performed By: #### 7 600, 80442, 6399 #### [facility] [place] [address] Quality Supervisor: Devan Colbert MD Sodium [Moles/Vol] 142 mmol/L Normal 135-146 [facility] Comment on above: Performed By: #### 7 600, 54749, 6399 #### [facility] [place] [address] Quality Supervisor: Devan Colbert MD Urea nitrogen [Mass/Vol] 20 mg/dL Normal 7-25 [facility] Comment on above: Performed By: #### 7 600, 21434, 6399 #### [facility] of [place] [address] Quality Supervisor: Devan Colbert MD Urea nitrogen/Creatinin e [Mass ratio] 38 mg/mg High 6-22 [facility] Comment on above: Performed By: #### 7 600, 88436, 6399 #### [facility] of [place] [address] Quality Supervisor: Devan Colbert MD LIPID PANEL, [facility] 120 Cholesterol [Mass/Vol] 207 mg/dL High <200 [facility] Comment on above: Order Comment: FASTI NG:YES FASTING: YES Performed By: #### 7 600, 88455, 6399 #### [facility] [address], [address] [place] [address] Quality Supervisor: Devan Colbert MD Cholesterol in HDL [Mass/Vol] 82 mg/dL Normal > OR = 50 [facility] Comment on above: Order Comment: FASTI NG:YES FASTING: YES Performed By: #### 7 600, 22023, 6399 #### [facility] [address], [address] [place] [address] Quality Supervisor: Devan Colbert MD Cholesterol in LDL [Mass/Vol] [...] LDL-C. Matheus SS et al. TOSHA. 2013;310(19): 3154-2968 (http://education.[employer].PollVaultr/faq/WWY991) Performed By: #### 7 600, 37777, 6399 #### [facility] [address], [address] [place] [address] Quality Supervisor: Devan Colbert MD Cholesterol.total/ Cholesterol in HDL [Mass ratio] 2.5 {ratio} Normal <5.0 [facility] Comment on above: Order Comment: FASTI NG:YES FASTING: YES Performed By: #### 7 600, 74250, 6399 #### [facility] [address], [address] [place] [address] Quality Supervisor: Devan Colbert MD NON HDL CHOLESTEROL 125 mg/dL (calc) Normal <130 [facility] Comment on above: Order Comment: FASTI NG:YES FASTING: YES Result Comment: For patients with diabetes plus 1 major ASCVD risk factor, treating to a non-HDL-C goal of <100 mg/dL (LDL-C of <70 mg/dL) is considered a therapeutic option. Performed By: #### 7 600, 86337, 6399 #### [facility] [address], [address] [place] [address] Quality Supervisor: Devan Colbert MD Triglyceride [Mass/Vol] 62 mg/dL Normal <150 [facility] Comment on above: Order Comment: FASTI NG:YES FASTING: YES Performed By: #### 7 600, 02918, 6399 #### [facility] [address], [address] [place] [address] Quality Supervisor: Devan Colbert MD TSH W/REFLEX TO FT4on 2023 TSH W/REFLEX TO FT4 2.13 mIU/L Normal 0.40-4.50 [facility] Comment on above: Performed By: #### 7 600, 67959, 5342 #### [facility] [address], [address] [place] [address] Quality Supervisor: Devan Colbert MD HbA1c (Bld) [Mass fraction]o n 06-06-2024 [facility]-06-2024 HbA1c (Bld) [Mass fraction] 5.5 % [facility] Vital Signs Date Time Vital Sign Value Performing Clinician Facility 02-28-2025 08:52-0400 Body height 163.2 cm Tracee FOX Work Phone: [facility] 02-28-2025 08:52-0400 Body mass index (BMI) [Ratio] 24.53 kg/m2 Tracee FOX Work Phone: [facility] 02-28-2025 08:52-0400 Body temperature 98.49 [degF] Tracee FOX Work Phone: [facility] 02-28-2025 08:52-0400 Body weight 65.32 kg Tracee FOX Work Phone: [facility] 02-28-2025 08:52-0400 Diastolic blood pressure 76 mm[Hg] Tracee Hemmer PA Work Phone: [facility] 02-28-2025 08:52-0400 Heart rate 84 /min Tracee Hemmer PA Work Phone: [facility] 02-28-2025 08:52-0400 Respiratory rate 16 /min Tracee Hemmer PA Work Phone: [facility] 02-28-2025 08:52-0400 SaO2% (BldA) [Mass fraction] 96 % Tracee Hemmer PA Work Phone: [facility] 02-28-2025 08:52-0400 Systolic blood pressure 108 mm[Hg] Tracee Hemmer PA Work Phone: [facility] 02-27-2025 10:35-0400 Body height 163.2 cm Tracee Hemmer PA Work Phone: [facility] 02-27-2025 10:35-0400 Body mass index (BMI) [Ratio] 24.66 kg/m2 Tracee Hemmer PA Work Phone: [facility] 02-27-2025 10:35-0400 Body weight 65.68 kg Tracee Hemmer PA Work Phone: [facility] 02-27-2025 10:35-0400 Diastolic blood pressure 74 mm[Hg] Tracee Hemmer PA Work Phone: [facility] 02-27-2025 10:35-0400 Heart rate 71 /min Tracee Hemmer PA Work Phone: [facility] 02-27-2025 10:35-0400 Respiratory rate 16 /min Tracee Hemmer PA Work Phone: [facility] 02-27-2025 10:35-0400 SaO2% (BldA) [Mass fraction] 96 % Tracee Hemmer PA Work Phone: [facility] 02-27-2025 10:35-0400 Systolic blood pressure 132 mm[Hg] Tracee Hemmer PA Work Phone: [facility] 01-30-2025 09:26-0400 Body height 163.2 cm Jesús Tripathi MD Work Phone: [facility] 01-30-2025 09:26-0400 Diastolic blood pressure 80 mm[Hg] Jesús Tripathi MD Work Phone: [facility] 01-30-2025 09:26-0400 Heart rate 89 /min Jesús Tripathi MD Work Phone: [facility] 01-30-2025 09:26-0400 SaO2% (BldA) [Mass fraction] 96 % Jesús Tripathi MD Work Phone: [facility] 01-30-2025 09:26-0400 Systolic blood pressure 128 mm[Hg] Jesús Tripathi MD Work Phone: [facility] 12-05-2024 14:46-0400 Body mass index (BMI) [Ratio] 25.55 kg/m2 Kiet Visci DO Work Phone: [facility] 12-05-2024 14:46-0400 Body weight 68.04 kg Kiet Visci DO Work Phone: [facility] 12-05-2024 14:46-0400 Diastolic blood pressure 76 mm[Hg] Kiet Visci DO Work Phone: [facility] 12-05-2024 14:46-0400 Systolic blood pressure 140 mm[Hg] Kiet Visci DO Work Phone: [facility] 11-01-2024 13:33-0400 Body height 163.2 cm Tracee Hemmer PA Work Phone: [facility] 11-01-2024 13:33-0400 Body mass index (BMI) [Ratio] 25.68 kg/m2 Tracee Hemmer PA Work Phone: [facility] 11-01-2024 13:33-0400 Body weight 68.4 kg Tracee Hemmer PA Work Phone: [facility] 11-01-2024 13:33-0400 Diastolic blood pressure 82 mm[Hg] Tracee Hemmer PA Work Phone: [facility] Comment on above: sitting to standing 138/82 11-01-2024 13:33-0400 Heart rate 91 /min Tracee Hemmer PA Work Phone: [facility] 11-01-2024 13:33-0400 Respiratory rate 16 /min Tracee Hemmer PA Work Phone: [facility] 11-01-2024 13:33-0400 SaO2% (BldA) [Mass fraction] 95 % Tracee Hemmer PA Work Phone: [facility] 11-01-2024 13:33-0400 Systolic blood pressure 138 mm[Hg] Tracee Hemmer PA Work Phone: [facility] Comment on above: sitting to standing 138/82 06-06-2024 09:45-0500 Body mass index (BMI) [Ratio] 26.26 kg/m2 Jesús Tripathi MD Work Phone: [facility] 06-06-2024 09:45-0500 Body weight 69.94 kg Jesús Tripathi MD Work Phone: [facility] 06-06-2024 09:45-0500 Diastolic blood pressure 90 mm[Hg] Jesús Tripathi MD Work Phone: [facility] 06-06-2024 09:45-0500 Heart rate 74 /min Jesús Tripathi MD Work Phone: [facility] 06-06-2024 09:45-0500 Respiratory rate 17 /min Jesús Tripathi MD Work Phone: [facility] 06-06-2024 09:45-0500 SaO2% (BldA) [Mass fraction] 97 % Jesús Tripathi MD Work Phone: [facility] 06-06-2024 09:45-0500 Systolic blood pressure 135 mm[Hg] Jesús Tripathi MD Work Phone: [facility] 04-04-2024 14:40-0400 Body height 163.2 cm Jesús Tripathi MD Work Phone: [facility] 04-04-2024 14:40-0400 Body mass index (BMI) [Ratio] 25.21 kg/m2 Jesús Tripathi MD Work Phone: [facility] 04-04-2024 14:40-0400 Body weight 67.13 kg Jesús Tripathi MD Work Phone: [facility] 04-04-2024 14:40-0400 Diastolic blood pressure 72 mm[Hg] Jesús Tripathi MD Work Phone: [facility] 04-04-2024 14:40-0400 Heart rate 71 /min Jesús Tripathi MD Work Phone: [facility] 04-04-2024 14:40-0400 SaO2% (BldA) [Mass fraction] 98 % Jesús Tripathi MD Work Phone: [facility] 04-04-2024 14:40-0400 Systolic blood pressure 128 mm[Hg] Jesús Tripathi MD Work Phone: [facility] 03-17-2024 11:05-0400 Body height 163.2 cm Jesús Tripathi MD Work Phone: [facility] 03-17-2024 11:05-0400 Body mass index (BMI) [Ratio] 25.21 kg/m2 Jesús Tripathi MD Work Phone: [facility] 03-17-2024 11:05-0400 Body temperature 98.29 [degF] Jesús Tripathi MD Work Phone: [facility] 03-17-2024 11:05-0400 Body weight 67.13 kg Jesús Tripathi MD Work Phone: [facility] 03-17-2024 11:05-0400 Diastolic blood pressure 74 mm[Hg] Jesús Tripathi MD Work Phone: [facility] 03-17-2024 11:05-0400 Heart rate 66 /min Jesús Tripathi MD Work Phone: [facility] 03-17-2024 11:05-0400 SaO2% (BldA) [Mass fraction] 100 % Jesús Tripathi MD Work Phone: [facility] 03-17-2024 11:05-0400 Systolic blood pressure 128 mm[Hg] Jesús Tripathi MD Work Phone: [facility] Encounters Encounter Date Encounter Type Care Provider Facility Start: 02-28-2025 End: 02-28-2025 Office outpatient visit 15 minutes Tracee Womack PA Work Phone: [facility] Comment on above: Primary insomnia (Pr imary Dx); Anxiety about health; Primary hypertension Start: 02-28-2025 End: 02-28-2025 ambulatory TRACEE WOMACK Not Available Start: 02-27-2025 End: 02-27-2025 Bamboo flowsheet Tracee Womack PA Work Phone: [facility] [facility] Start: 02-27-2025 End: 02-27-2025 Bamboo flowsheet Tracee Womack PA Work Phone: [facility] [facility] Start: 02-27-2025 End: 02-27-2025 Office outpatient visit 25 minutes Tracee Womack PA Work Phone: [facility] [facility] Comment on above: Primary hypertension (Primary Dx); Anxiety about health Start: 02-27-2025 End: 02-27-2025 ambulatory TRACEE WOMACK Not Available Start: 02-24-2025 End: 02-25-2025 Telephone encounter Jesús Tripathi MD Work Phone: [facility] Comment on above: 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) Start: 02-07-2025 End: 02-07-2025 Patient encounter procedure Kiet Dawkins DO [facility] Work Phone: Start: 02-07-2025 End: 02-07-2025 ambulatory Jesús Tripathi II Work Phone: [facility] Work Phone: Start: 01-30-2025 End: 01-30-2025 Bamboo flowsheet Jesús Tripathi MD Work Phone: [facility] [facility] Start: 01-30-2025 End: 01-30-2025 Bamboo flowsheet Jesús Tripathi MD Work Phone: [facility] Start: 01-30-2025 End: 01-30-2025 Assay of hemosiderin, quant Jesús Tripathi MD Work Phone: [facility] Start: 01-30-2025 End: 01-30-2025 Patient encounter procedure Jesús Tripathi MD Work Phone: [facility] Comment on above: Routine general medi [...] 12-28-2024 End: 12-28-2024 Bamboo flowsheet John Kelbley [facility] Start: 12-28-2024 End: 12-28-2024 Bamboo flowsheet John Kelbley [facility] Start: 12-28-2024 End: 12-28-2024 ambulatory John Kelbley [facility] Comment on above: Sciatica without sofi k pain, unspecified laterality (Primary Dx) Start: 12-26-2024 End: 12-26-2024 Bamboo flowsheet John Kelbley [facility] Start: 12-26-2024 End: 12-26-2024 Bamboo flowsheet John Kelbley [facility] Start: 12-26-2024 End: 12-26-2024 ambulatory John Kelbley [facility] Comment on above: Sciatica without sofi k pain, unspecified laterality (Primary Dx) Start: 12-21-2024 End: 12-21-2024 ambulatory John Kelbley [facility] Comment on above: Sciatica without sofi k pain, unspecified laterality (Primary Dx) Start: 12-19-2024 End: 12-19-2024 Bamboo flowsheet John Kelbley [facility] Start: 12-19-2024 End: 12-19-2024 Bamboo flowsheet John Etienney [facility] Start: 12-19-2024 End: 12-19-2024 ambulatory Johncharlene Luisbley [facility] Comment on above: Sciatica without sofi k pain, unspecified laterality (Primary Dx) Start: 12-14-2024 End: 12-15-2024 ambulatory Johncharlene Etienney [facility] Comment on above: Sciatica without sofi k pain, unspecified laterality (Primary Dx) Polyosteoarthritis, unspecified Start: 12-12-2024 End: 12-12-2024 Bamboo flowsheet John Etienney [facility] Start: 12-12-2024 End: 12-12-2024 Bamboo flowsheet John Etienney [facility] Start: 12-12-2024 End: 12-12-2024 ambulatory John Etienney [facility] Comment on above: Sciatica without sofi k pain, unspecified laterality (Primary Dx) Start: 12-09-2024 End: 12-09-2024 Bamboo flowsheet Torie Mclain PA Work Phone: [facility] Start: 12-09-2024 End: 12-09-2024 Bamboo flowsheet Torie Mclain PA Work Phone: [facility] Start: 12-09-2024 End: 12-09-2024 Office outpatient visit 25 minutes Torie Mclain PA Work Phone: [facility] Comment on above: Right knee [...] 12-05-2024 Office outpatient visit 15 minutes Kiet Dawkins DO Work Phone: [facility] Comment on above: Encounter for gyneco logical examination with abnormal finding (Primary Dx); Encounter for screening mammogram for malignant neoplasm of breast; Vaginal atrophy; Osteopenia of both hips; Osteoporosis screening; Asymptomatic menopause; Insomnia, unspecified type Start: 12-05-2024 End: 12-05-2024 Patient encounter status Kiet Dawkins DO Work Phone: [facility] Start: 12-05-2024 End: 12-05-2024 ambulatory KIET DAWKINS Not Available Start: 12-05-2024 End: 12-05-2024 ambulatory John Luisbley [facility] Comment on above: Sciatica without sofi k pain, unspecified laterality (Primary Dx) Start: 12-02-2024 End: 12-02-2024 Bamboo flowsheet John Kelbley [facility] Start: 12-02-2024 End: 12-02-2024 Bamboo flowsheet John Kelbley [facility] Start: 12-02-2024 End: 12-02-2024 ambulatory John Kelbley [facility] Comment on above: Sciatica without sofi k pain, unspecified laterality (Primary Dx) Start: 11-30-2024 End: 11-30-2024 Bamboo flowsheet Jhoana Silveira PT Work Phone: [facility] Start: 11-30-2024 End: 11-30-2024 Bamboo flowsheet Jhoana Silveira PT Work Phone: [facility] Start: 11-30-2024 End: 11-30-2024 ambulatory Jhoana Silveira PT Work Phone: [facility] Comment on above: Sciatica without sofi k pain, unspecified laterality (Primary Dx) Start: 11-23-2024 End: 11-23-2024 ambulatory John Kelbley [facility] Comment on above: Sciatica without sofi k pain, unspecified laterality (Primary Dx) Start: 11-23-2024 End: 11-23-2024 Bamboo flowsheet John Mosley [facility] Start: 11-23-2024 End: 11-23-2024 Bamboo flowsheet John Mosley [facility] Start: 11-21-2024 End: 11-21-2024 Bamboo flowsheet Jhoana Silveira PT Work Phone: [facility] Start: 11-21-2024 End: 11-21-2024 Bamboo flowsheet Jhoana Silveira PT Work Phone: [facility] Start: 11-21-2024 End: 11-21-2024 ambulatory Jhoana Silveira PT Work Phone: [facility] Comment on above: Sciatica without sofi k pain, unspecified laterality (Primary Dx) Start: 11-14-2024 End: 11-14-2024 Telephone encounter Jhoana T Raoul PT Work Phone: [facility] Comment [...] above: Polyosteoarthritis, unspecified Start: 08-01-2024 End: 08-01-2024 Refill Jesús Tripathi MD Work Phone: [facility] Comment on above: Polyosteoarthritis, unspecified Start: 06-20-2024 End: 06-20-2024 Bamboo flowsheet Binta Marting NEUROBIOLOGIST Work Phone: [facility] Start: 06-20-2024 End: 06-20-2024 Bamboo flowsheet Binta B Apling NEUROBIOLOGIST Work Phone: [facility] Start: 06-20-2024 End: 06-20-2024 Office outpatient visit 15 minutes Binta Marting NEUROBIOLOGIST Work Phone: [facility] Comment on above: Right knee pain, uns pecified chronicity (Primary Dx); Left knee pain, unspecified chronicity; Arthritis of left knee; Arthritis of right knee Start: 06-20-2024 End: 06-20-2024 ambulatory BINTA B APLING Not Available Start: 06-13-2024 End: 06-13-2024 [employer] Binta Hopkins Apling NEUROBIOLOGIST Work Phone: [facility] Start: 06-13-2024 End: 06-13-2024 [employer] Binta Hopkins Apling NEUROBIOLOGIST Work Phone: [facility] Start: 06-13-2024 End: 06-13-2024 Office outpatient new 45 minutes Binta Marting NEUROBIOLOGIST Work Phone: [facility] Comment on above: Right knee pain, uns pecified chronicity (Primary Dx); Left knee pain, unspecified chronicity; Primary osteoarthritis of both knees; Arthritis of left knee; Arthritis of right knee Start: 06-13-2024 End: 06-13-2024 ambulatory BINTA B APLING Not Available Start: 2024 End: 2024 [...] hemosiderin, quant Jesús Tripathi MD Work Phone: [facility] Start: 06-06-2024 End: 06-06-2024 Patient encounter procedure Jesús Tripathi MD Work Phone: [facility] Comment on above: Routine general medi jurgen examination at [facility] care facility (Primary Dx); Primary hypertension (CMS/HCC); Age-related osteoporosis without current pathological fracture (CMS/HCC); [...] Start: 02-07-2025 Dual energy X-ray absorptiometry Jesús Tripathi II Work Phone: Start: 02-07-2025 Screening mammograph y of bilateral breasts Jesús Tripathi II Work Phone: Start: 12-09-2024 Arthrocentesis aspir &/inj major jt/bursa w/o us Torie Mclain PA Work Phone: Start: 12-09-2024 Arthrocentesis aspir &/inj major jt/bursa w/o us Torie FOX Work Phone: Start: 06-20-2024 Arthrocentesis aspir &/inj major jt/bursa w/o us Binta Gannon NEUROBIOLOGIST Work Phone: Start: 06-13-2024 Arthrocentesis aspir &/inj major jt/bursa w/o us Binta Gannon NEUROBIOLOGIST Work Phone: Start: 06-13-2024 Radiologic examinati on knee 1/2 views Binta Gannon NEUROBIOLOGIST Work Phone: Start: 06-06-2024 Hemoglobin glycosylated a1c Jesús Tripathi MD Work Phone: Plan of Treatment Date Care Activity Detail Author Start: 01-30-2026 Medicare Annual Well ness (AWV) Medicare Annual Wellness (AWV) [facility] Start: 12-18-2025 End: 12-18-2025 Patient encounter procedure [facility] Start: 06-06-2025 Medicare Annual Well ness (AWV) Medicare Annual Wellness (AWV) [facility] Start: 03-13-2025 End: 03-13-2025 Patient encounter procedure 03/13/2025 10:00 AM EDT Office Visit [facility] [address] [place] [address] Tracee Womack PA [address] [place] [address] [facility] Start: 03-06-2025 Influenza vaccination Influenza Vacc ine (#1) [facility] Start: 02-27-2025 End: 02-27-2025 Patient encounter procedure [facility] Comment on above: Arrived Start: 01-30-2025 End: 01-30-2026 US.doppler Carotid arteries [...] [address] [place] [address] John Mosley PTA [facility] Start: 12-28-2024 End: 12-28-2024 ambulatory [facility] Comment on above: Arrived Start: 12-26-2024 End: 12-26-2024 ambulatory [facility] Comment on above: Arrived Start: 12-21-2024 End: 12-21-2024 ambulatory 12/21/2024 11:00 AM EDT Treatment [facility] [address] [place] [address] John Mosley, [facility]YER [facility] Start: 12-19-2024 End: 12-19-2024 ambulatory [facility] Comment on above: Arrived Start: 12-14-2024 End: 12-14-2024 ambulatory 12/14/2024 10:00 AM EDT Treatment [facility] [address] [facility] [address] [place] [address] John Mosley, BUYER [facility] Start: 12-12-2024 End: 12-12-2024 [...] EDT Treatment [facility] [address] [facility] [address] [place] [address] Jhoana Silveira, PT [address] [facility] [address] [place] [address] [facility] Start: 12-05-2024 End: 12-05-2024 [...] [address] [place] [address] John Mosley, [facility]YER [facility] Start: 12-02-2024 End: 12-02-2024 ambulatory 12/02/2024 9:30 AM EDT Treatment [facility] [address] [place] [address] KelJennifer mahanissa, BUYER [facility] Start: 11-30-2024 End: 11-30-2024 ambulatory [facility] Comment on above: Arrived Start: 11-23-2024 End: 11-23-2024 ambulatory 11/23/2024 3:00 PM EDT Treatment [facility] [address] [place] [address] Jennifer Mosleyissa, BUYER [facility] Start: 11-21-2024 End: 11-21-2024 ambulatory [facility] Comment on above: Sciatica without sofi k pain, unspecified laterality Start: 11-01-2024 End: 11-01-2024 Patient encounter procedure 11/01/2024 1:30 PM EDT Office Visit [facility] [address] [place] [address] Tracee Womack PA [address] [place] [address] Arrived [facility] Comment on above: Arrived Start: 06-20-2024 End: 06-20-2024 Patient encounter procedure [facility] Comment on above: Right knee pain, uns pecified chronicity (Primary Dx); Left knee pain, unspecified chronicity; Arthritis of left knee; Arthritis of right knee Start: 06-13-2024 End: 06-13-2024 Patient encounter procedure 06/13/2024 9:30 AM EST [facility] [address] [facility] [address] [place] [address] Binta Gannon, NEUROBIOLOGIST [address] [facility] [address] [place] [address] Right knee pain, unspecified chronicity (Primary Dx); Left knee pain, unspecified chronicity; Primary osteoarthritis of both knees [facility] Comment on above: Right knee pain, uns pecified chronicity (Primary Dx); Left knee pain, unspecified chronicity; Primary osteoarthritis of both knees Start: 06-06-2024 End: 06-06-2025 Comprehensive metabolic 2000 panel - Serum or Plasma Comprehensive metabolic panel Lab Routine Primary hypertension (CMS/HCC) Osteoarthritis of spine with radiculopathy, lumbar region Expected: 06/06/2024 (Approximate), Expires: 06/06/2025 [facility] Comment on above: Expected: 06/06/2024 (Approximate), Expires: 06/06/2025 Start: 06-06-2024 End: 06-06-2025 Lipid 1996 panel - Serum or Plasma Lipid panel Lab Routine Mixed hyperlipidemia (CMS/HCC) Expected: 06/06/2024 (Approximate), Expires: 06/06/2025 [facility] Comment on above: Expected: 06/06/2024 (Approximate), Expires: 06/06/2025 Start: 06-06-2024 End: 06-06-2025 TSH W/REFLEX TO FT4 TSH W/REFLEX TO FT4 Lab Routine Primary hypertension (CMS/HCC) Mixed hyperlipidemia (CMS/HCC) Expected: 06/06/2024 (Approximate), Expires: 06/06/2025 [facility] Comment on above: Expected: 06/06/2024 (Approximate), Expires: 06/06/2025 Start: 06-06-2024 End: 06-06-2024 Patient encounter procedure [facility] Comment on above: Arrived Start: 05-27-2024 Medicare Annual Well ness (AWV) Medicare Annual Wellness (AWV) [facility] Start: 04-04-2024 End: 04-04-2024 Patient encounter procedure 04/04/2024 2:45 PM EDT Office Visit [facility] [address] [facility] [address] [place] [address] Jesús Tripathi MD [address] [facility] [address] [place] [address] Encounter for screening mammogram for malignant neoplasm of breast; Left lumbar radiculitis [facility] Comment on above: Encounter for screen ing mammogram for malignant neoplasm of breast; Left lumbar radiculitis Start: 03-17-2024 End: 03-17-2025 XR Lumbar spine 2 or 3 Views XR lumbar spine 2 or 3 views Imaging Routine Left lumbar radiculitis Expected: 03/17/2024, Expires: 03/17/2025 [facility] Work Phone: Comment on above: Expected: 03/17/2024 , Expires: 03/17/2025 Start: 03-17-2024 End: 03-17-2024 Patient encounter procedure 03/17/2024 11:15 AM EDT Office Visit [facility] [address] [facility] [address] [place] [address] Jesús Tripathi MD [address] [facility] [address] [place] [address] Arrived [facility] Comment on above: Arrived Start: 03-06-2024 Influenza vaccination Influenza Vacc ine (#1) [facility] CBC W Auto Different ial panel - Blood CBC and differential Lab Routine Primary hypertension (CMS/HCC) Osteoarthritis of spine with radiculopathy, lumbar region Ordered: 06/06/2024 [facility] Work Phone: Comment on above: Ordered: 06/06/2024 Immunizations Immunization Date Immunization Notes Care Provider Fa jenna 07-13-2024 ABRYSVO - Respirator y syncytial virus (RSV), vaccine, bivalent, protein subunit RSV prefusion F, diluent reconstituted, 0.5 mL, PF Tracee FOX Work Phone: [facility] 05-18-2024 influenza, high dose seasonal, preservative-free Tracee Hemmer PA Work Phone: [facility] Work Phone: 05-18-2024 influenza virus vacc ine, unspecified formulation Jesús Tripathi MD Work Phone: [facility] 04-19-2023 SARS-COV-2 (COVID-19 ) vaccine, mRNA, spike protein, LNP, PF, alvaro-sucrose, 30 mcg/0.3 mL Jesús Tripathi MD Work Phone: [facility] 04-15-2023 influenza, seasonal, injectable Jesús Tripathi MD Work Phone: [facility] 04-15-2023 influenza virus vacc ine, unspecified formulation Jesús Tripathi MD Work Phone: [facility] 05-06-2022 influenza, high dose seasonal, preservative-free Jesús Tripathi MD Work Phone: [facility] 04-25-2022 Moderna Bivalent Simms ster Vaccination Jesús Tripathi MD Work Phone: [facility] 05-22-2021 pneumococcal conjuga te vaccine, 13 valent Jesús Tripathi MD Work Phone: [facility] 05-06-2021 influenza, high dose seasonal, preservative-free Jesús Tripathi MD Work Phone: [facility] 01-10-2020 zoster vaccine recombinant Jesús Tripathi MD Work Phone: [facility] 09-12-2019 pneumococcal polysaccharide vaccine, 23 valent Jesús Tripathi MD Work Phone: [facility] 03-06-2019 influenza, seasonal, injectable, preservative free Jesús Tripathi MD Work Phone: [facility] 04-11-2015 zoster vaccine, live Jesús Tripathi MD Work Phone: [facility] 03-17-2014 zoster vaccine, live Jesús Tripathi MD Work Phone: [facility] Payers Date Payer Category Payer Self-pay 2023 [employer] [id number] 2022 [employer] [id number] 2022-Present [address] [place] [address] [id number] 2022 () [id number] 2022 [employer] ( [employer] others) [id number] 2021 Medicaid [employer] MEDICARE A DVANTAGE [id number] 2021 Medicare [employer] MEDICARE A DVANTAGE [employer] MEDICARE REPLACEMENT [id number] 2021-Present [address] [place] [address] [id number] 2021 Private Health Insurance [facility] [id number] 1959 [employer] ( and others) [id number] 1959 Medicare [id number] 1945 Unknown [id number] 2.16.840.1.287293.3.579.2 .593 1945 Unknown [id number] 2.16.840.1.612152.3.579.2 .1259 1945 Unknown [id number] 2.16.840.1.187653.3.579.2 .1259 1945 Unknown [id number] 2.16.840.1.609588.3.579.2 .1258 1945 Unknown [id number] 2.16.840.1.395808.3.579.2 .1258 1945 Unknown [id number] 2.16.840.1.861658.3.579.2 .1258 1945 Unknown [id number] 2.16.840.1.702619.3.579.2 .1258 1945 Unknown [id number] 2.16.840.1.131015.3.579.2 .1258 1945 Unknown [id number] 2.16.840.1.096613.3.579.2 .1258 1945 Unknown [id number] 2.16.840.1.348371.3.579.2 .1258 1945 Unknown [id number] 2.16.840.1.262865.3.579.2 .1258 1945 Unknown [id number] 2.16.840.1.436845.3.579.2 .1258 1945 Unknown [id number] 2.16.840.1.540616.3.579.2 .1258 1945 Unknown [id number] 2.16.840.1.426384.3.579.2 .1258 1945 Unknown [id number] 2.16.840.1.292777.3.579.2 .1258 1945 Unknown [id number] 2.16.840.1.453831.3.579.2 .1258 1945 Unknown [id number] 2.16.840.1.749088.3.579.2 .125 1945 Unknown [id number] 2.16.840.1.263893.3.579.2 .1259 1945 Unknown [id number] 2.16.840.1.642859.3.579.2 .1259 1945 Unknown [id number] 2.16.840.1.828856.3.579.2 .1259 1945 Unknown [id number] 2.16.840.1.128748.3.579.2 .1259 1945 Unknown [id number] 2.16.840.1.731707.3.579.2 .1259 1945 Unknown [id number] 2.16.840.1.724293.3.579.2 .9 1945 Unknown [id number] 2.16.840.1.843684.3.579.2 .9 1945 Unknown [id number] 2.16.840.1.963083.3.579.2 .9 1945 Unknown [id number] 2.16.840.1.763671.3.579.2 .1259 Unknown [id number] 2.16.840.1.664950.3.579.2 .531 Social History Date Type Detail Facility Start: 05-25-2023 End: 12-07-2023 Tobacco smoking status NVIS Never smoked tobacco [facility] Start: 05-25-2023 Tobacco use and exposure Smokeless tobacco non-user [facility] Start: 04-04-2024 End: 02-28-2025 Alcoholic beverage intake Current drinker of alcohol [...] Only a little [facility] (I/We) worried whejewell er (my/our) food would run out before (I/we) got money to buy more. Never true [facility] Sex Female (finding) [facility] Functional Status Date Assessment Result Facility 02-28-2025 Patient Health Quest ionnaire 2 item (PHQ-2) [Reported] [facility] 02-27-2025 Patient Health Quest ionnaire 2 item (PHQ-2) [Reported] [facility] 11-01-2024 Patient Health Quest ionnaire 2 item (PHQ-2) [Reported] [facility] Clinical Notes 03-17-2024 to 02-28-2025 DOMINIQUE Thakkar - 02/28/2025 9:00 AM RAMSEYTDOMINIQUE Thakkar - 02/27/2025 10:30 AM EDTTelephone Encounter - Donna Gutiérrez NP - 02/25/2025 4:42 PM EDTJesús Tripathi MD - 01/30/2025 9:30 AM EDT Note Date & Type Note Facility 02-28-2025 History of Present illness Narrative Images from the original note were not included. Subjective Patient ID: Linda Roach is a 79 y.o. female who presents for not feeling well. Linda is present today for evaluation of loose stools. Admitted that this morning she had loose stools, headaches, anxious. She could not even sleep last night, even with the Ambien. Tried laying in a different bed, tried sleeping on the couch, and still couldn't sleep. States she did take the Buspar and just felt wired. States her joints hurt yesterday after mowing the lawn, states that normally doesn't happen to her. Over the past 2 weeks, how often have you been bothered by any of the following problems? Little interest or pleasure in doing things: Not at all Feeling down, depressed, or hopeless: Not at all Patient Health Questionnaire-2 Score: 0 Current Outpatient Medications on File Prior to Visit Medication Sig Dispense Refill latanoprost (Xalatan) 0.005 % ophthalmic solution Administer 1 drop into both eyes at bedtime metoprolol succinate XL (Toprol-XL) 50 MG 24 hr tablet Take 1 tablet by mouth in the morning. omeprazole (PriLOSEC) [address] capsule Take 1 capsule (40 mg) by mouth in the morning. Take before meals. Do not crush or chew.. (Patient taking differently: Take 40 mg by mouth in the morning. Take before meals. Do not crush or chew. PRN.) 30 capsule 0 ondansetron ODT (Zofran-ODT) 4 MG disintegrating tablet Take 1 tablet (4 mg) by mouth every 8 (eight) hours if needed for nausea or vomiting for up to 7 days 21 tablet 0 rosuvastatin (Crestor) 20 MG tablet Take 1 tablet (20 mg) by mouth in the morning. 90 tablet 3 traMADol (Ultram) 50 MG tablet Take 1 tablet (50 mg) by mouth every 6 (six) hours if needed for severe pain 120 tablet 2 zolpidem (Ambien) 10 MG tablet Take 1 tablet (10 mg) by mouth as needed at bedtime for sleep 30 tablet 3 [DISCONTINUED] busPIRone (Buspar) 10 MG tablet Take 1 tablet (10 mg) by mouth in the morning and 1 tablet (10 mg) before bedtime. 60 tablet 2 [DISCONTINUED] hydrOXYzine HCl (Atarax) 25 MG tablet Take 1 tablet (25 mg) by mouth every 8 (eight) hours if needed for anxiety for up to 2 days 6 tablet 0 [DISCONTINUED] lisinopril-hydroCHLOROthiazide 10-12.5 MG tablet Take 1 tablet by mouth in the morning. No current facility-administered medications on file prior to visit. I have reviewed and reconciled the history and medication list with the patient today. Allergies Allergen Reactions Hydralazine Tachycardia Buspirone [place] Wired Hydroxyzine Other [place] Wired Social History Tobacco Use Smoking status: Never Smokeless tobacco: Never Vaping Use Vaping status: Never Used Substance Use Topics Alcohol use: Yes Alcohol/week: 7.0 standard drinks of alcohol Types: 7 Glasses of wine per week Drug use: Never No family history on file. Past Medical History: Diagnosis Date Atrophic vaginitis 04/30/2023 Basal cell carcinoma (BCC) of left shoulder 04/30/2023 Generalized osteoarthritis 04/30/2023 Hyperlipidemia 04/30/2023 Hypertension 04/30/2023 Insomnia 04/30/2023 Osteoarthritis of lumbar spine 04/30/2023 Osteoporosis 04/30/2023 Other allergic rhinitis 04/30/2023 Patella fracture 06/14/2013 Rotator cuff syndrome ? Sacroiliitis 04/30/2023 Tear of meniscus of knee Past Surgical History: Procedure Laterality Date COLONOSCOPY 2014 ROTATOR CUFF REPAIR TONSILLECTOMY Visit Vitals BP 108/76 Pulse 84 Temp 98.5 F Resp 16 Ht 5' 4.25 Wt 144 lb LMP (LMP Unknown) SpO2 96% BMI 24.53 kg/m OB Status Postmenopausal Smoking Status Never BSA 1.72 m Review of Systems Constitutional: Negative for chills, fatigue and fever. Respiratory: Negative for cough, shortness of breath and wheezing. Cardiovascular: Negative for chest pain, palpitations and leg swelling. Gastrointestinal: Positive for diarrhea. Negative for abdominal pain, constipation, nausea and vomiting. Musculoskeletal: Positive for arthralgias. Skin: Negative for rash. Neurological: Positive for headaches. Psychiatric/Behavioral: The patient is nervous/anxious. Objective Physical Exam Constitutional: General: She is [...] breath sounds. No wheezing, rhonchi or rales. Skin: General: Skin is warm and dry. Neurological: General: No focal deficit present. Mental Status: She is alert and oriented to person, place, and time. Psychiatric: Mood and Affect: Mood is anxious. Behavior: Behavior normal. Assessment/Plan Diagnoses and all orders for this visit: Primary insomnia Normally has good response to the Ambien. She can try that again tonight. Anxiety about health - LORazepam (Ativan) 0.5 MG tablet; Take 1 tablet (0.5 mg) by mouth 2 (two) times a day as needed for anxiety for up to 15 days Stop Buspar as it made her feel worse. Provided her with small supply of Lorazepam to use as needed for anxiety. Again reminded pt of potential s/e, as well as potential for reliance on this class of medication when they are taken regularly. She voiced understanding. Will recheck at her follow up as scheduled. Primary hypertension - lisinopril 10 MG tablet; Take 1 tablet (10 mg) by mouth Daily Will have pt stop the Hydrochlorothiazide portion of her combination BP medication. Start Lisinopril as prescribed. Continue the Metoprolol. Will see if part of her medication is causing her GI symptoms. Will recheck her BP at her follow up on 03/13. She can contact office sooner if any concerns. Follow up for Appointment As Scheduled. documented in this encounter [facility] 02-27-2025 History of Present illness Narrative Images from the original note were not included. Subjective Patient ID: Linda Roach is a 79 y.o. female who presents for [facility] ER follow up. Linda is present today for [facility] ER follow up. Dx. SVT, HTN, Rx'd Metoprolol, Lisinopril-hydrochlorothiazide, ASA. She has been referred to cardiology at the end of March. She has a stress test that has been ordered and is in the process of getting approved by her insurance and is currently wearing a holter monitor for 30 days. She has had abdominal pain, headaches, diarrhea (just 1 day), lightheadness, hot flash and then chills after that, in the evening sometimes has some chest discomfort but she feels it may be due to her being so anxious over all the heart symptoms she has been having (she would like to discuss ativan). BP has been running around 132-152/70/s-80. Takes Tramadol a few times a week in the evenings if her hand arthritis starts to hurt. States she is anxious every day. Dog is getting older, worried about current health issues, has friends passing away, worried about turning 80 soon. Did try the Hydroxyzine, but she was wired after taking it. Couldn't even sit, was more anxious. Over the past 2 weeks, how often have you been bothered by any of the following problems? Little interest or pleasure in doing things: Not at all Feeling down, depressed, or hopeless: Not at all Patient Health Questionnaire-2 Score: 0 Current Outpatient Medications on File Prior to Visit Medication Sig Dispense Refill omeprazole (PriLOSEC) [address] capsule Take 1 capsule (40 mg) by mouth in the morning. Take before meals. Do not crush or chew.. (Patient taking differently: Take 40 mg by mouth in the morning. Take before meals. Do not crush or chew. PRN.) 30 capsule 0 latanoprost (Xalatan) 0.005 % ophthalmic solution Administer 1 drop into both eyes at bedtime lisinopril-hydroCHLOROthiazide 10-12.5 MG tablet Take 1 tablet by mouth in the morning. metoprolol succinate XL (Toprol-XL) 50 MG 24 hr tablet Take 1 tablet by mouth in the morning. rosuvastatin (Crestor) 20 MG tablet Take 1 tablet (20 mg) by mouth in the morning. 90 tablet 3 traMADol (Ultram) 50 MG tablet Take 1 tablet (50 mg) by mouth every 6 (six) hours if needed for severe pain 120 tablet 2 zolpidem (Ambien) 10 MG tablet Take 1 tablet (10 mg) by mouth as needed at bedtime for sleep 30 tablet 3 [DISCONTINUED] hydrOXYzine HCl (Atarax) 25 MG tablet Take 1 tablet (25 mg) by mouth every 8 (eight) hours if needed for anxiety for up to 2 days 6 tablet 0 No current facility-administered medications on file prior to visit. I have reviewed and reconciled the history and medication list with the patient today. Allergies Allergen Reactions Hydralazine Tachycardia Hydroxyzine Other [place]uque Wired Social History Tobacco Use Smoking status: Never Smokeless tobacco: Never Vaping Use Vaping status: Never Used Substance Use Topics Alcohol use: Yes Alcohol/week: 7.0 standard drinks of alcohol Types: 7 Glasses of wine per week Drug use: Never No family history on file. Past Medical History: Diagnosis Date Atrophic vaginitis 04/30/2023 Basal cell carcinoma (BCC) of left shoulder 04/30/2023 Generalized osteoarthritis 04/30/2023 Hyperlipidemia 04/30/2023 Hypertension 04/30/2023 Insomnia 04/30/2023 Osteoarthritis of lumbar spine 04/30/2023 Osteoporosis 04/30/2023 Other allergic rhinitis 04/30/2023 Patella fracture 06/14/2013 Rotator cuff syndrome ? Sacroiliitis 04/30/2023 Tear of meniscus of knee Past Surgical History: Procedure Laterality Date COLONOSCOPY 2014 ROTATOR CUFF REPAIR TONSILLECTOMY Visit Vitals BP 132/74 Pulse 71 Resp 16 Ht 5' 4.25 Wt 144 lb 12.8 oz LMP (LMP Unknown) SpO2 96% BMI 24.66 kg/m OB Status Postmenopausal Smoking Status Never BSA 1.73 m Review of Systems Constitutional: Positive for chills. Negative for fatigue and fever. Respiratory: Negative for cough, shortness of breath and wheezing. Cardiovascular: Positive for chest pain. Negative for palpitations and leg swelling. Gastrointestinal: Negative for abdominal pain, constipation, diarrhea, nausea and vomiting. Skin: Negative for rash. Psychiatric/Behavioral: The patient is nervous/anxious. Objective Physical Exam Constitutional: General: She is [...] breath sounds. No wheezing, rhonchi or rales. Skin: General: Skin is warm and dry. Neurological: General: No focal deficit present. Mental Status: She is alert and oriented to person, place, and time. Psychiatric: Mood and Affect: Mood is anxious. Behavior: Behavior normal. Assessment/Plan Diagnoses and all orders for this visit: Primary hypertension Patient's blood pressure is currently well controlled. Continue with current medications and I will continue to monitor. Anxiety about health - busPIRone (Buspar) 10 MG tablet; Take 1 tablet (10 mg) by mouth in the morning and 1 tablet (10 mg) before bedtime. Discussed risks and benefits of daily vs as needed medications. Advised as she is having daily anxiety, this places her at an increased risk for becoming reliant on BZD class medications. This class can also increase the risk for falls. She is also already taking two controlled medication, Tramadol only prn. She is agreeable to trying Buspar as prescribed above. Reviewed dosing instructions for pt. Will see her back in 2 weeks for a recheck, or she can contact the office sooner if needed. If doing very well on the Buspar, she can cancel the appointment. If she continues to have break through anxiety at follow up, can consider increasing the Buspar or adding a low dose of Lorazepam. The patient was seen today in follow up of recent hospital ER visit. All available hospital records/labs/diagnostics were reviewed and discussed with the patient. ER discharge meds were reviewed. Any changes to plan are as noted. Follow up in about 2 weeks (around 03/13/2025) for Medication Follow Up. documented in this encounter [facility] 02-25-2025 Telephone encounter Note This pt continues to have high anxiety related to her bp elevation, nausea, vomiting and diarrhea. She was started on some metoprolol and lisinopril/hydrochlorothiazide while at the ER last week. She has now stopped the lisinopril/hydrochlorothiazide and no longer has the diarrhea, nausea and vomiting. She was advised per cardiology on 02/24/25 to go to the ER but did refuse. She was advised by Tracee Womack to go to the ER on 02/22/25 if her symptoms continued but she did not go. She has also been advised by the supervisor pumping station NEUROBIOLOGIST to go to the ER dt continuing symptoms and has refused. She is having more anxiety. Hydroxyzine is added for a 2 day supply. She does have an appointment with Tracee Womack on 02/27/25 to discuss her BP and anxiety. Hydroxyzine is sent for anxiety today, 2 Day supply, #6 tabs. Pt advised again today that if she has more symptoms/worsening symptoms to go to the ER. [facility] 02-25-2025 Miscellaneous Notes This pt continues to have high anxiety related to her bp elevation, nausea, vomiting and diarrhea. She was started on some metoprolol and lisinopril/hydrochlorothiazide while at the ER last week. She has now stopped the lisinopril/hydrochlorothiazide and no longer has the diarrhea, nausea and vomiting. She was advised per cardiology on 02/24/25 to go to the ER but did refuse. She was advised by Tracee Womack to go to the ER on 02/22/25 if her symptoms continued but she did not go. She has also been advised by the supervisor pumping station NEUROBIOLOGIST to go to the ER dt continuing symptoms and has refused. She is having more anxiety. Hydroxyzine is added for a 2 day supply. She does have an appointment with Tracee Womack on 02/27/25 to discuss her BP and anxiety. Hydroxyzine is sent for anxiety today, 2 Day supply, #6 tabs. Pt advised again today that if she has more symptoms/worsening symptoms to go to the ER. Linda Roach is a 79 y.o. female pt called in because she was in the hospital earlier this week and was prescribed blood pressure meds to go home with, lisinopril-hydroCHLOROthiazide 10-12.5 MG taken daily and metoprolol succinate XL (Toprol-XL) 50 MG taken daily. Pt states she started taking these meds Thursday and since she has had diarrhea , head aches, and feeling flushed. Pt states she did call the screen making technician office but was told they were out of office till Thursday will no clinical biochemist. Pt requesting a call back from the supervisor pumping station provider at [phone] . documented in this encounter [facility] 02-24-2025 Note I would also advise the ER going into the weekend as she is in need of ischemic evaluation as her EKG was abnormal during her recent hospital stay and her sx's may be cardiac as women can present with different sx's. What has her BP and HR been running? Does she have her stress test scheduled? [facility] 02-24-2025 Telephone encounter Note Linda Roach is a 79 y.o. female pt called in because she was in the hospital earlier this week and was prescribed blood pressure meds to go home with, lisinopril-hydroCHLOROthiazide 10-12.5 MG taken daily and metoprolol succinate XL (Toprol-XL) 50 MG taken daily. Pt states she started taking these meds Thursday and since she has had diarrhea , head aches, and feeling flushed. Pt states she did call the screen making technician office but was told they were out of office till Thursday will no clinical biochemist. Pt requesting a call back from the supervisor pumping station provider at [phone] . [facility] 01-30-2025 History of Present illness Narrative Images from the original note were not included. Subjective : Chief Complaint: Alena Roach is an 79 y.o. female here for [...] Do you have a medical power of non morse intercept technician?: (Patient-Rptd) (P) No Objective : BP 128/80 [...] vaginitis - The patient is seeing a ophthalmic medical technologist for this condition, treatment is deferred to [...] January 30, 2025 documented in this encounter [facility] 12-15-2024 Telephone encounter Note Pt scheduled [facility] 12-15-2024 Miscellaneous Notes Pt scheduled Patient is due for an appointment at the end of January. Please help her get scheduled for routine controlled medication follow up appointment. OARRS reviewed, Rx sent into patient's pharmacy. documented in this encounter [facility] 12-14-2024 Telephone encounter Note Patient is due for an appointment at the end of January. Please help her get scheduled for routine controlled medication follow up appointment. OARRS reviewed, Rx sent into patient's pharmacy. [facility] 12-09-2024 History of Present illness Narrative Associated Order(s): L Inj/Asp: L knee; L Inj/Asp: R knee Post-Procedure Diagnose(s): Arthritis of left knee; Arthritis of right knee Images from the original note were not included. Orthopedic Office note: NAME: Alena Roach : 1945 EST PT WITH ALTAGRACIA WITH FLARE UP B/L KNEE PAIN- NKI [...] at HS. LT knee: EST PT WITH ALTAGRACIA- RECHECK RT KNEE- S/P RT KNEE CORTISONE [...] requiring urgent evaluation. Visit was preformed using [employer]-rivet tester speech recognition. documented in this encounter [facility] 12-07-2024 History of Present illness Narrative Images from the original note were not included. Physical Therapy Treatment Visit Patient Name: Linda Roach Today's Date: 12/07/2024 Encounter Diagnoses Name Primary? [...] to be instructed in home exercise program. Salesperson Flowers Goals: To be met in 10 weeks [...] sign below. Date: documented in this encounter [facility] 12-05-2024 History of Present illness Narrative Images from the original note were not included. Kiet Dawkins, Obstetrics and Gynecology Alena Roach 1945 12/05/24 [id number] Yearly Wellness Exam Chief Complaint Patient presents with Gynecologic Exam Pt presents for yearly. Denies breast,bowel,bladder,composition roll maker and cutter problems. Visit Vitals BP 140/76 Wt 150 [...] left shoulder 04/30/2023 Generalized osteoarthritis 04/30/2023 Hyperlipidemia ([facility]) 04/30/2023 Hypertension ([facility]) 04/30/2023 Insomnia 04/30/2023 Osteoarthritis of lumbar spine 04/30/2023 Osteoporosis ([facility]) 04/30/2023 Other allergic rhinitis 04/30/2023 Patella fracture 06/14/2013 Rotator cuff syndrome ? Sacroiliitis ([facility]) 04/30/2023 Tear of meniscus of knee Past [...] age and hx) [place] 09/01/23 [place] Dexa 06/24/22 normal spine, hips osteopenia. Colonoscopy [...] palpable. BACK: No obvious scoliosis/kyphosis. 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 Last colonoscopy completed 2015- normal. She would like to hold off on repeating for now. She will return in 1 year for annual exam. Entered by Yumiko Santos LPN acting as scribe for Dr. Kiet Dawkins. Signature: Yumiko Santos LPN The documentation recorded by the scribe accurately reflects the service(s) I personally performed and the decisions I made. Signature: Kiet Dawkins, DO Assessment & Plan documented in this encounter [facility] 11-30-2024 History of Present illness Narrative Images from the original note were not included. Physical Therapy Treatment Visit Patient Name: Linda Roach Today's Date: 11/30/2024 Encounter Diagnoses Name Primary? [...] sign below. Date: documented in this encounter [facility] 11-14-2024 Telephone encounter Note She called back and we scheduled her Eval 11/21 @ 2:00 w/ Jhoana Silveira, PT. [facility] 11-14-2024 Miscellaneous Notes She called back and we scheduled her Eval 11/21 @ 2:00 w/ Jhoana Silveira PT. documented in this encounter [facility] 11-01-2024 History of Present illness Narrative Images from the original note were not included. Subjective Patient ID: Linda Roach is a 79 y.o. female who presents [...] left shoulder 04/30/2023 Generalized osteoarthritis 04/30/2023 Hyperlipidemia ([facility]) 04/30/2023 Hypertension ([facility]) 04/30/2023 Insomnia 04/30/2023 Osteoarthritis of lumbar spine 04/30/2023 Osteoporosis ([facility]) 04/30/2023 Other allergic rhinitis 04/30/2023 Sacroiliitis ([facility]) 04/30/2023 Past Surgical History: Procedure Laterality Date [...] or pronator drift. Coordination: Romberg sign negative. Xnilqp-Hskf-Ywykai Test normal. Gait: Gait is intact. Psychiatric: [...] follow-ups on file. documented in this encounter [facility] 06-20-2024 History of Present illness Narrative Associated Order(s): L Inj/Asp: R knee Post-Procedure Diagnose(s): Arthritis of right knee Images from the original note were not included. Subjective Patient ID: Linda Roach is a [address] Tripathi [...] call if needed documented in this encounter [facility] 06-13-2024 History of Present illness Narrative Associated Order(s): L Inj/Asp: L knee Post-Procedure Diagnose(s): Arthritis of left knee Images from the original note were not included. Subjective Patient ID: Linda Roach is a [address] Tripathi [...] right knee showed severe varus deformity with [id number] articulation to the medial joint line. There [...] left knee showed severe varus deformity with ibcb-[id number] articulation to the medial joint line, flattening [...] right knee injection documented in this encounter [facility] 06-06-2024 History of Present illness Narrative Images from the original note were not included. Subjective : Chief Complaint: Alena Roach is an 78 y.o. female here for [...] Yes Cognitive Screening Three Word Registration: Banana, Woodfin, Chair Clock Drawing: Normal Clock - 2 Three Word Recall: All 3 words correct - 3 Total Score (0-5 Points): 5 Pain Assessment Pain Score: 6 Advance Care Planning Do you have a living will?: No Do you have a medical power of non morse intercept technician?: No Objective : BP 135/90 Pulse 74 [...] June 06, 2024 documented in this encounter [facility] 05-25-2024 Telephone encounter Note OARRS reviewed, Rx sent into patient's pharmacy. [facility] 05-25-2024 Miscellaneous Notes OARRS reviewed, Rx sent into patient's pharmacy. documented in this encounter [facility] 04-04-2024 History of Present illness Narrative Images from the original note were not included. HPI Results Additional comments: xray Last edited by Nicole Larson LPN on 04/04/2024 2:40 PM. Subjective Patient ID: Linda Roach is a 78 y.o. female who presents [...] left shoulder 04/30/2023 Generalized osteoarthritis 04/30/2023 Hyperlipidemia ([facility]) 04/30/2023 Hypertension ([facility]) 04/30/2023 Insomnia 04/30/2023 Osteoarthritis of lumbar spine 04/30/2023 Osteoporosis ([facility]) 04/30/2023 Other allergic rhinitis 04/30/2023 Sacroiliitis ([facility]) 04/30/2023 Past Surgical History: Procedure Laterality Date [...] fail to improve. documented in this encounter [facility] 03-17-2024 History of Present illness Narrative Images from the original note were not included. Subjective Patient ID: Linda Roach is a 78 y.o. female who presents [...] weeks (around 03/31/2024). documented in this encounter [facility] Evaluation note Diagnosis Polyosteoarthritis, unspecified documented [...] hyperlipidemia Mixed hyperlipidemia documented in this encounter [facility] HealthcareEvaluation noteNo assessment information availableSelect Medical [facility] Work Phone: Evaluation note* Diagnosis Anxiety about health- Primary documented in this encounter [facility] HealthcareEvaluation note* Diagnosis Primary hypertension- Primary Unspecified essential hypertension Anxiety about health documented in this encounter [facility] HealthcareEvaluation note* Diagnosis Primary insomnia- Primary Persistent disorder of initiating or maintaining sleep Anxiety about health Primary hypertension Unspecified essential hypertension documented in this encounter [facility] HealthcareReason for referral (narrative)No reason for referral information availableSelect Medical [facility] Work Phone: Reason for visit Narrative* Rehabilitation - Outpatient (Routine) - Authorized Specialty Diagnoses / Procedures Referred By Contac t Referred To Contact Physical Therapy Diagnoses Sciatica without back pain, unspecified laterality Procedures MD OFFICE/OUTPATIENT NEW HIGH MDM 60 MINUTES Jesús Tripathi MD [address] [address] Phone: tel: fax: Jhoana Silveira, PT [address] [address] Phone: tel: fax: Referral ID Status Reason Start Date Expiration Date Visits Requested Visits Authorized [id number] Authorized Specialty Services Required 11/11/2024 05/10/2025 99 99 [facility] HealthcareReason for visit Narrative* Rehabilitation - Outpatient (Routine) - Authorized Specialty Diagnoses / Procedures Referred By Contac t Referred To Contact Physical Therapy Diagnoses Sciatica without back pain, unspecified laterality Procedures MD OFFICE/OUTPATIENT NEW HIGH MDM 60 MINUTES Jesús Tripathi MD [address] [address] Phone: tel: fax: Jhoana Silveira, PT [address] [address] Phone: tel: fax: Referral ID Status Reason Start Date Expiration Date Visits Requested Visits Authorized [id number] Authorized Specialty Services Required 11/11/2024 07/05/2025 99 99 [facility] Summary Purpose Family History No Family History Records Found Relationship Condition Age at Onset Recorded Date/T shana father Unknown family member Unknown mother Unknown Advance Directives No Advanced Directives Records Found Advance Directive Response Recorded Date/ Time Advance Directives No June 3:26pm Chief Complaint and Reason for Visit Chief Complaint Admit Date Z13.820 Z78.0 M85.851 M85.852 February 2:36pm Additional Source Comments INFORMATION SOURCE (unrecogn ized section and content) DATE CREATED AUTHOR 08/24/2021 [facility] DATE CREATED AUTHOR AUTHOR'S ORGANIZ ATION 06/09/2024 [facility] DATE CREATED AUTHOR AUTHOR'S ORGANIZ ATION 02/15/2025 [facility] DATE CREATED AUTHOR AUTHOR'S ORGANIZ ATION 03/01/2025 [facility] EPIC DATE CREATED AUTHOR AUTHOR'S ORGANIZ ATION 03/04/2025 [facility] Reason for Visit (unrecogniz ed section and content) Reason Onset Date Comments Med Refill 05/25/2024 Reason Comments Leg Pain Reason Comments Pain Specialty Diagnoses / Procedures Referred By Contac t Referred To Contact Orthopaedic Surgery Diagnoses Primary osteoarthritis of both knees Jesús Tripathi MD 112 [facility] [address] [place] [address] Phone: tel: fax: Binta Gannon NP [address] [place] [address] Phone: tel: fax: Referral ID Status Reason Start Date Expiration Date V isits Requested Visits Authorized [id number] Closed Specialty Services Required 06/06/2024 12/03/2024 1 1 Reason Comments Follow-up Pain Reason Onset Date Comments Med Refill 03/02/2024 Reason Comments LBP/ leg pain Results xray Reason Onset Date Comments Med Refill 08/01/2024 Reason Onset Date Comments Med Refill 10/10/2024 Reason Onset Date Comments PT Initial Eval 11/11/2024 fu 11/14/2024 Call Back 11/14/2024 Reason Comments Gynecologic Exam Pt presents for year ly. Denies breast,bowel,bladder,composition roll maker and cutter problems. Reason Comments Pain Reason Onset Date Comments Med Refill 12/14/2024 Reason Comments Medicare Annual Wellness Visit Subsequen t Reason Onset Date Comments Other 02/24/2025 clinical biochemist Care Teams (unrecognized sec tion and content) Ict Help Desk Officer Relationship Specialty Start Date End Date Jesús Tripathi MD [address] [place] [address] PCP - [employer] 07/06/20 Jesús Tripathi MD [address] [place] [address] PCP - General Internal Medicine 11/11/22 Ict Help Desk Officer Relationship Specialty Start Date End Date Jesús Tripathi MD [address] [place] [address] PCP - [employer] 07/06/20 Jesús Tripathi MD [address] [place] [address] PCP - General Internal Medicine 11/11/22 Ict Help Desk Officer Relationship Specialty Start Date End Date Jesús Tripathi MD [address] [place] [address] PCP - [employer] 07/06/20 Jesús Tripathi MD [address] [place] [address] PCP - General Internal Medicine 11/11/22 Ict Help Desk Officer Relationship Specialty Start Date End Date Jesús Tripathi MD [address] [place] [address] PCP - [employer] 07/06/20 Jesús Tripathi MD [address] [place] [address] PCP - General Internal Medicine 11/11/22 Ict Help Desk Officer Relationship Specialty Start Date End Date Jesús Tripathi MD [address] [place] [address] PCP - [employer] 07/06/20 Jesús Tripathi MD [address] [place] [address] PCP - General Internal Medicine 11/11/22 Ict Help Desk Officer Relationship Specialty Start Date End Date Jesús Tripathi MD [address] [place] [address] PCP - [employer] 07/06/20 Jesús Tripathi MD [address] [place] [address] PCP - General Internal Medicine 11/11/22 Ict Help Desk Officer Relationship Specialty Start Date End Date Jesús Tripathi MD [address] [place] [address] PCP - [employer] 07/06/20 Jesús Tripathi MD [address] [place] [address] PCP - General Internal Medicine 11/11/22 Ict Help Desk Officer Relationship Specialty Start Date End Date Jesús Tripathi MD [address] [place] [address] PCP - [employer] 07/06/20 Jesús Tripathi MD [address] [place] [address] PCP - General Internal Medicine 11/11/22 Ict Help Desk Officer Relationship Specialty Start Date End Date Jesús Tripathi MD [address] [place] [address] PCP - [employer] 07/06/20 Jesús Tripathi MD [address] [place] [address] PCP - General Internal Medicine 11/11/22 Ict Help Desk Officer Relationship Specialty Start Date End Date Jesús Tripathi MD [address] [place] [address] PCP - [employer] 07/06/20 Jesús Tripathi MD [address] [place] [address] PCP - General Internal Medicine 11/11/22 Ict Help Desk Officer Relationship Specialty Start Date End Date Jesús Tripathi MD [address] [place] [address] PCP - [employer] 07/06/20 Jesús Tripathi MD [address] [place] [address] PCP - General Internal Medicine 11/11/22 Ict Help Desk Officer Relationship Specialty Start Date End Date Jesús Tripathi MD [address] [place] [address] PCP - [employer] 07/06/20 Jesús Tripathi MD [address] [place] [address] PCP - General Internal Medicine 11/11/22 Ict Help Desk Officer Relationship Specialty Start Date End Date Jesús Tripathi MD [address] [place] [address] PCP - [employer] 07/06/20 Jesús Tripathi MD [address] [place] [address] PCP - General Internal Medicine 11/11/22 Ict Help Desk Officer Relationship Specialty Start Date End Date Jesús Tripathi MD [address] [place] [address] PCP - [employer] 07/06/20 Jesús Tripathi MD [address] [place] [address] PCP - General Internal Medicine 11/11/22 Ict Help Desk Officer Relationship Specialty Start Date End Date Jesús Tripathi MD [address] [place] [address] PCP - [employer] 07/06/20 Jesús Tripathi MD [address] [place] [address] PCP - General Internal Medicine 11/11/22 Ict Help Desk Officer Relationship Specialty Start Date End Date Jesús Tripathi MD [address] [place] [address] PCP - [employer] 07/06/20 Jesús Tripathi MD [address] [place] [address] PCP - General Internal Medicine 11/11/22 Ict Help Desk Officer Relationship Specialty Start Date End Date Jesús Tripathi MD [address] [place] [address] PCP - [employer] 07/06/20 Jesús Tripathi MD [address] [place] [address] PCP - General Internal Medicine 11/11/22 Ict Help Desk Officer Relationship Specialty Start Date End Date Jesús Tripathi MD [address] [place] [address] PCP - [employer] 07/06/20 Jesús Tripathi MD [address] [place] [address] PCP - General Internal Medicine 11/11/22 Ict Help Desk Officer Relationship Specialty Start Date End Date Jesús Tripathi MD [address] [place] [address] PCP - [employer] 07/06/20 Jesús Tripathi MD [address] [place] [address] PCP - General Internal Medicine 11/11/22 Ict Help Desk Officer Relationship Specialty Start Date End Date Jesús Tripathi MD [address] [place] [address] PCP - [employer] 07/06/20 Jesús Tripathi MD [address] [place] [address] PCP - General Internal Medicine 11/11/22 Ict Help Desk Officer Relationship Specialty Start Date End Date Jesús Tripathi MD [address] [place] [place] [address] PCP - [employer] 07/06/20 Jesús Tripathi MD [address] [place] [address] PCP - General Internal Medicine 11/11/22 Ict Help Desk Officer Relationship Specialty Start Date End Date Jesús Tripathi MD [address] [place] [address] PCP - [employer] 07/06/20 Jesús Tripathi MD [address] [place] [address] PCP - General Internal Medicine 11/11/22 Ict Help Desk Officer Relationship Specialty Start Date End Date Jesús Tripathi MD [address] [place] [address] PCP - Aet 07/06/20 Jesús Tripathi MD [address] [place] [address] PCP - General Internal Medicine 11/11/22 Team Status: Active Member Role Status Dates Jesús Tripathi II MD Primary Care Provider Active Team Status: Inactive Member Role Status Dates Jseús Tripathi II MD Primary Care Provider Active Start: February 07, 2025 End: February 07, 2025 Kiet Dawkins DO Attending Provider Active Sta rt: February 07, 2025 End: February 07, 2025 Ict Help Desk Officer Relationship Specialty Start Date End Date Jesús Tripathi MD [address] [place] [address] PCP - Aet 07/06/20 Jesús Tripathi MD 112 [facility] [address] [place] [address] PCP - General Internal Medicine 11/11/22 Goals (unrecognized section and content) Goals may [...] BE BASED ON THE PRIMARY CLINICAL RECORDS. [employer] [facility]. provides no warranty or guarantee of the accuracy or completeness of information in this document.
--- NOTE | 2025-03-10 09:25 | PC.NURSE ---
Nursing Note Cardiac Stress Test Reviewed: Medication, allergies and patient history reviewed. Stress Test: [x ] Patient tolerated stress test well. [ ] Patient unable to tolerate walking on treadmill. Switched to Lexiscan stress test. [x ] No chest pain noted per patient [ ] Chest pain that resolved prior to leaving stress lab. [x ] No dyspnea noted. [ ] Dyspnea that resolved prior to leaving stress lab. [ x] Patient left stress lab asymptomatic and hemodynamically stable. [ ] Patient taken to the Emergency Room due to non-resolving symptoms following stress test. [x ] Patient achieved target heart rate. [ ] Patient unable to achieve target heart rate. [ ] Aminophylline administered as reversal agent to Lexiscan (Regadenoson). [ ] Nitro administered. Nursing Comments:Pt did well on the treadmill. Pt had no chest pain and minimal SOB. Pt ambulated to cafeteria for breakfast prior to second set of images.
--- NOTE | 2025-03-10 17:07 | PM.STRESS ---
Stress Test Stress Test Allergies Allergy/AdvReac Type Severity Reaction Status Date / Time hydralazine AdvReac Severe SVT Verified 02/18/25 22:16 Requesting physician: MARY GOMEZ Procedure: Treadmill exercise nuclear stress test with cardiolyte General Information: Reason for Stress Test: [Abnormal ECG] Cardiac History and Risk Factors: [HTN, dyslipidemia] Resting 12 - Lead Electrocardiogram: Normal sinus rhythm Septal infarct age indeterminate Abnormal ECG Stress Test: Protocol: [Germain: exercised for 4.24 seconds, reaching stage 2 of the protocol, achieving 7.0 METs. Resting HR 65 bpm, increasing to 122 bpm representing 86% of PMHR, resting BP 134/62 with a maximum of 158/78. The test was terminated due to achievement of target HR and fatigue] Exercise Capacity: [Good] Blood Pressure Response: [Appropriate] Rhythm: [Sinus, PVCs] ST - Response: [1.0 to 1.[address] depression seen in inferolateral leads] Patient Response: [No symptoms] Interpretation: 1. Positive treadmill stress test: ischemic EKG changes seen inferolaterally. 2. Appropriate HR and BP response to exercise. 3. Ramey Treadmill Score: -3.3. Estimated 1-Year Mortality: 1.0-1.1 %. Risk Category: Moderate Risk. Angiography: May be indicated. 4. Nuclear images to be read, interpreted, and reported seperately
== END 2025-03-10 06:42 | disposition home or self-care (01) ==
LOC: NM 06:41
PROVIDERS: PCP Internal Medicine; Visit Provider Internal Medicine Interventional Cardiology
DX: R07.89 Other chest pain (principal); R94.31 Abnormal electrocardiogram [ECG] [EKG]
CPT/HCPCS: 78452; 93017; A9500